=== PATIENT | female | born 1940 | race Caucasian/White ===

== ENCOUNTER 2019-06-28 11:49 | Emergency (ER) | payer MEDICARE, OTHER, SELFPAY ==
--- NOTE | ~2019-06-28 | XR_ITS ---
EXAMINATION: XR chest 2V DATE: 06/28/2019 12:37 INDICATION: Cough and fever. TECHNIQUE: Frontal and lateral views of the chest were obtained. COMPARISON: Chest 2 views 03/25/2015 FINDINGS: There are small pleural effusions. There are airspace opacities in right upper lobe. There is mild atelectasis at the lung bases. No pneumothorax. The heart size is normal. There are surgical clips in right abdomen. IMPRESSION: 1. Airspace opacities in right upper lobe, consistent with pneumonia. 2. Small pleural effusions. Reviewed, dictated and finalized at location A. REPAIRER
[2019-06-28 12:05] VITALS: BP 141/70; PULSE 68; RESP 24; TEMP 39.3; O2SAT 97
--- NOTE | 2019-06-28 12:17 | ED.GENADULT ---
HPI - General Adult General Chief complaint: Upper Respiratory Infection Stated complaint: upper back pn/fever Time Seen by Provider: 06/28/19 12:17 Source: patient and RN notes reviewed Mode of arrival: ambulatory Limitations: no limitations History of Present Illness HPI narrative: 79-year-old female with complaints of upper respiratory infection symptoms, body aches, congestion, fever, cough, intermittent headache (not the worst: of her life) for 4 days. Arthritis Tylenol (650mg last this morning at 11:30) and Coricidin HBP with some relief. Dry cough. Coughing increases with lying down. Chest congestion. High fever, highest 103F, orally with chills and sweats. Rosaura says she recently left [facility] for further evaluation here at [facility] due to no radiologist to read CXR per provider's at [facility] request. Rhinorrhea and nasal congestion. No exacerbating factors. No nausea, vomiting, and abdominal pain. Denies chest pain, dyspnea, wheezing, coughing up blood, difficulty swallowing, jaw pain, dental pain, facial pain, foreign body sensation, and rash. Postmenopausal. Remains active. Some parts of this dictation were generated by voice recognition software and may contain typographical and/or grammatical inaccuracies. Related Data Home Medications Medication Instructions Recorded Confirmed amlodipine 10 mg DAILY 06/28/19 06/28/19 celecoxib 200 mg DAILY 06/28/19 06/28/19 folic acid 1 mg DAILY 06/28/19 06/28/19 indomethacin 25 mg DAILY 06/28/19 06/28/19 omeprazole 20 mg DAILY 06/28/19 06/28/19 simvastatin 20 mg DAILY 06/28/19 06/28/19 Allergies Allergy/AdvReac Type Severity Reaction Status Date / Time nitrofurantoin Allergy Severe GENERALIZED Unverified 11/25/16 06:31 ENTIRE BODY TINGLING, PAIN Penicillins Allergy Unknown Verified 08/18/17 15:24 Review of Systems Review of Systems: Narrative: CONSTITUTIONAL: Complains of fever, chills, sweats. EYES: Denies visual changes, redness, discharge. ENT: Complains of rhinorrhea, congestion. Denies sore throat, otalgia. CARDIOVASCULAR: Denies chest pain, palpitations, edema. RESPIRATORY: Denies dyspnea, wheezing. Complains of dry cough, chest congestion. GASTROINTESTINAL: Denies abdominal pain, nausea, vomiting, diarrhea. GENITOURINARY: Denies dysuria, hematuria, abnormal discharge SKIN: Denies rash or itching. MUSCULOSKELETAL: Denies acute back pain, joint pain. Complains of myalgia. NEUROLOGIC: Denies numbness or focal weakness. PSYCHIATRIC: Denies anxiety or depression. All systems reviewed & are unremarkable except as noted in HPI and below. [facility] Past Medical History Medical History (Updated 06/29/19 @ 00:02 by Hawa Freeman) Arthritis Cardiac arrhythmia History of gastroesophageal reflux (GERD) Hypercholesteremia Hypertension Obstructive sleep apnea Pneumonia Family History Family History Father Family history of respiratory disorder, Onset Age: 63 Sibling Diabetes mellitus Other Family history of malignant neoplasm of breast Family history of malignant neoplasm of cervix Social History Social History Smoking status: Never smoker Alcohol intake: never Gender identity (if verbalized by the patient): Female Comments At time of signature, agree with nurse past medical, surgical, social, and family history. There is no relevant family history pertinent to the presenting complaint. Exam Narrative: Exam Narrative: GENERAL: This is a well-nourished, well-developed patient, in no apparent distress. Speaks in full sentences and ambulates with steady gait without dyspnea. HEAD: normocephalic, atraumatic. EYES: PERRL. Sclera clear/white. Vision is grossly intact. EARS: External ears normal, auditory canals clear and without drainage, TMs normal without perforation. Hearing grossl
[2019-06-28 13:27] VITALS: BP 113/68; PULSE 85; RESP 20; TEMP 37.7; O2SAT 98
== END 2019-06-28 13:29 | disposition home or self-care (01) ==
PROVIDERS: Emergency Provider Nurse Practitioner Family
DX: J18.9 Pneumonia, unspecified organism (principal); M19.90 Unspecified osteoarthritis, unspecified site; K21.9 Gastro-esophageal reflux disease without esophagitis; E78.00 Pure hypercholesterolemia, unspecified; I10 Essential (primary) hypertension; G47.30 Sleep apnea, unspecified
CPT/HCPCS: 71046; 87804; 99213; A9270; G0463

== ENCOUNTER 2021-02-19 01:40 | Day surgery (SDC) | payer MEDICARE, OTHER, SELFPAY ==
[2021-02-06 10:08] VITALS: BMI 29.1
--- NOTE | 2021-02-19 07:01 | WPDHPUPDATE1 ---
History and Physical Update Update Date/Time: 02/19/21 07:01 History and Physical has been reviewed, including an updated exam of the patient. There are NO changes in the patient's condition. Risks, benefits, and alternatives have been discussed and questions answered. Patient agrees to proceed with procedure.
--- NOTE | 2021-02-19 09:39 | WPDANESEPPF ---
Anes - Initial Pre Proc Eval Procedure: Operation Date: 02/19/21 11:00 Proposed Procedures p Repair Left Middle and Ring Sagittal Bands with Local or Remote Tendon Grafts and Inject Left Middle Trigger Finger - Shyam Yen MD Date/Time: 02/19/21 09:39 Surgeon: Shyam Yen MD Pre Op Diagnosis: Left Ring Finger Sagittal Band Rupture Patient Data Age: 80 Gender: F Height: 1.63 m Weight: 77 kg Allergies Allergy/AdvReac Type Severity Reaction Status Date / Time nitrofurantoin Allergy Severe GENERALIZED Verified 02/06/21 09:59 ENTIRE BODY TINGLING, PAIN,UNABLE TO WALK Penicillins Allergy Unknown rash Verified 02/06/21 09:59 Home Medications Medication Instructions Recorded Confirmed Type amlodipine 10 mg PO QPM 06/28/19 02/06/21 History celecoxib 200 mg PO QAM 06/28/19 02/06/21 History folic acid 1 mg PO DAILY 06/28/19 02/06/21 History indomethacin 25 mg PO DAILY PRN 06/28/19 02/06/21 History omeprazole 20 mg PO DAILY 06/28/19 02/06/21 History simvastatin 10 mg PO DAILY 06/28/19 02/06/21 History prednisolone acetate 1 % eye 1 drp EACH EYE EVERY OTHER DAY 12/25/20 02/06/21 History drops,suspension multivitamin [Multiple Vitamin] 1 tablet PO DAILY 02/06/21 02/06/21 History potassium 99 mg PO DAILY 02/06/21 02/06/21 History vitamin B complex [B 1 tablet PO DAILY 02/06/21 02/06/21 History Complex-Vitamin B12] Patient hx anesthesia problems: none Family hx anesthesia problems: none PMFSH Past Medical History Medical History Arthritis Cardiac arrhythmia History of gastroesophageal reflux (GERD) Hypercholesteremia Hypertension Obstructive sleep apnea Pneumonia Surgical History Surgical History H/O hemorrhoidectomy History of cornea transplant History of left knee replacement Family History Family History Father Family history of respiratory disorder, Onset Age: 63 Sibling Diabetes mellitus Other Family history of malignant neoplasm of breast Family history of malignant neoplasm of cervix Social History Social History Smoking status: Never smoker Alcohol intake: never Substance use: never Living arrangements: with family Additional living arrangements comments: [facility] Gender identity (if verbalized by the patient): Female Spiritual care concerns: No Anes - Eval Final PreProcedure Day of Procedure 02/19/21 09:39 Patient weight: overweight Heart: regular rate and rhythm and murmur Lungs: clear to auscultation Airway: Mallampati scale class III Neurological: alert and oriented Last oral intake: >/= 8 hours ASA classification: III Emergent: no Anesthetic plan: proceed Anesthesia type and monitoring: general GIVS and standard monitoring Informed Consent: The patient's anesthetic plan and its attendant risks and benefits were discussed with the patient/family/POA. Questions were solicited and answers provided to the satisfaction of the patient/family/POA.
[2021-02-19 09:56] VITALS: BP 131/62; PULSE 67; RESP 14; TEMP 37.3; O2SAT 100; BMI 29.3
[2021-02-19] MEDS: LACTATED RINGERS 1,000 ML 30 ML IV CONT ×2 (10:03→11:47)
[2021-02-19] MEDS: LIDO 1%/EPINEPHRINE 1:100,000 50 ML VIAL 7 ML INFILTRATE (10:27)
[2021-02-19 11:47] VITALS: BP 127/62; PULSE 77; RESP 12; TEMP 36.1; O2SAT 91
[2021-02-19 12:15] VITALS: BP 127/62; PULSE 76; RESP 16
--- NOTE | 2021-02-19 12:27 | W.PM.PROC2 ---
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 The patient was transferred to the operating room. She was placed supine on the operating table. A time-out was held and confirmed. She was given IV sedation. The extremity was prepped and draped in usual fashion. The tourniquet was applied and eventually inflated to 250 mmHg. The incision lines were marked on the hand dorsally. The sites were infiltrated 1% lidocaine with epinephrine. The incision was made over the 4th ray centered on the metacarpophalangeal joint. Skin flaps were elevated to both sides. The disrupted sagittal band was noted on the radial side. Some scar tissue was trimmed out. The ulnar collateral ligament at the head of the 4th metacarpal was dissected and small hemostat was passed beneath that. A distally-based segment of the extensor tendon was elevated. This was looped under the extensor tendons to pass distal to proximal through the opening under the collateral ligament. The segment of tendon was sutured back to itself with 3-0 Ethibond finger of 8 stitches at 2 sites. This was done with the metacarpophalangeal joint in extension. This allowed free passive range of motion of the metacarpophalangeal joint. The extensor sanchez on the ulnar side was incised at the area of the metacarpophalangeal joint to improve the position of the tendon. The 2nd incision was made over the middle metacarpophalangeal joint. A similar procedure was carried out harvesting of a distally based tendon segment from the extensor tendon. The ulnar collateral ligament was dissected. The [id number] 3-0 Ethibond sutures were placed. This allowed free passive flexion of the middle finger. Again the extensor sanchez on the ulnar side was incised at the level of the metacarpophalangeal joint. The tourniquet was released. Bleeding points were electrocoagulated. The site was irrigated. At that point I elected not to inject the A1 wilma on the palmar side but hold that for a later date. The skin was closed with running 5 0 nylon. A small bulky bandage was applied with a ortho glass splint holding the proximal phalanges of the middle and ring fingers in extension but allowing passive motion and freedom of range to the other 3 digits. She is discharged to the recovery room. She will be discharged with prescription for hydrocodone 5/325 10. And cephalexin 500 mg t.i.d. 15. Estimated Blood Loss 5 Tourniquet Time 43 Drains No Packing No Pathology none sent Complications No immediate complications Condition stable Disposition PACU
[2021-02-19 12:45] VITALS: BP 133/70; PULSE 80; RESP 16
== END 2021-02-19 13:02 | disposition home or self-care (01) ==
PROVIDERS: Visit Provider Plastic Surgery
PROC: (CPT 26437; principal; 2021-02-19 11:00)
DX: S66.313A Strain of extensor muscle, fascia and tendon of left middle finger at wrist and hand level, initial encounter (principal); S66.315A Strain of extensor muscle, fascia and tendon of left ring finger at wrist and hand level, initial encounter; X58.XXXA Exposure to other specified factors, initial encounter; I10 Essential (primary) hypertension; E78.00 Pure hypercholesterolemia, unspecified; K21.9 Gastro-esophageal reflux disease without esophagitis; G47.33 Obstructive sleep apnea (adult) (pediatric)
CPT/HCPCS: 26437 ×2; A9270; J2704; J3010; J7120

== ENCOUNTER 2021-10-16 09:04 | Outpatient (CLI) | payer MEDICARE, OTHER, SELFPAY ==
--- NOTE | ~2021-10-16 | MM_ITS ---
EXAMINATION: MM screening [facility] BI w skip HISTORY: Screening mammogram TECHNIQUE: Craniocaudal and mediolateral oblique 3-D tomosynthesis images were obtained and synthetic 2-D images were generated. CAD analysis was submitted and interpreted. COMPARISON: 11/10/2018, 10/25/2018, 10/21/2017 BREAST PARENCHYMAL COMPOSITION: The breasts are almost entirely fatty. FINDINGS: There is no suspicious mass, calcification, or architectural distortion to suggest malignan cy in either breast. There has been no suspicious interval change. IMPRESSION: 1. No mammographic evidence of malignancy. 2. Recommend routine screening mammography in one year. BI-RADS Category 1: Negative Reviewed, dictated and finalized at location A.
== END 2021-10-16 09:05 | disposition home or self-care (01) ==
PROVIDERS: Visit Provider Obstetrics & Gynecology
DX: Z12.31 Encounter for screening mammogram for malignant neoplasm of breast (principal)
CPT/HCPCS: 77063; 77067

== ENCOUNTER 2022-01-19 08:30 | Outpatient (CLI) | payer MEDICARE, OTHER, SELFPAY ==
--- NOTE | 2022-01-21 12:38 | P.PCNPFT_ITS ---
PFT Procedure Performed PFT Procedure Performed Spirometry with Pre/Post Bronchodilator Plethysmography (Lung Vol) Diffusing Cap (DLCO) Flow Vol Loop PFT Interpretation This is a pulmonary function test with pre and post-bronchodilator spirometry, plethysmography and diffusing capacity. The test was performed and results interpreted in accordance with the 2019 and 2005 ATS/ERS Task Force guidelines respectively using the Global Lung Function Initiative-2012 reference equations. Patient demonstrated good effort and cooperation. Reproducibility criteria were met. The quality of the pre bronchodilator spirometry maneuver was Grade A and post bronchodilator spirometry maneuver was Grade A. Findings: Spirometry: The contour the inspiratory and expiratory flow tracing are normal. The pre bronchodilator FVC is 2.61 L, 105% predicted. The pre bronchodilator FEV1 is 2.07 L, 111% predicted. The pre bronchodilator FEV1: FVC ratio 79%. The post bronchodilator FVC is 2.49 L, representing a 4% decrease. The post bronchodilator FEV1 is 1.97 L, representing a 5% decrease. The post bronchodilator FEV1: FVC ratio 79%. Plethysmography: The total lung capacity is 4.21 L, 83% predicted. The functional residual capacity is 2.64 L, 90% predicted. The residual volume is 1.60 L, 65% predicted. Diffusing capacity: The diffusing capacity unadjusted for hemoglobin and carboxyhemoglobin is 13.6, 72% predicted. The diffusing capacity adjusted for alveolar volume is 3.97, 97% predicted. In comparison to previous pulmonary function test on 05/20/2015 the post bronchodilator FVC is unchanged from 2.61 L to 2.49 L. The post bronchodilator FEV1 is unchanged from 2.11 L to 1.97 L. The total lung capacity is unchanged from 4.73 L to 4.21 L. The functional residual capacity is unchanged from 3.10 L to 2.64 L. The residual volume is decreased from 2.00 L to 1.60 L. the diffusing capacity unadjusted for hemoglobin and carboxyhemoglobin is unchanged from 12.7 to 13.6. The diffusing capacity adjusted for alveolar volume is unchanged from 4.35 to 3.97. Impression: The spirometry is normal without evidence of an obstructive abnormality. There is no significant improvement after inhaling a single dose of albuterol. The total lung capacity is normal with a decreased residual volum e. This is an abnormal but nonspecific lung volume pattern. The diffusing capacity is normal. In comparison to prior pulmonary function testing on 05/20/2015 there has been a greater than anticipated time dependent decrease in the residual volume with no change in the FVC, FEV1, total lung capacity, functional residual capacity or diffusing capacity. Clinical correlation is recommended.
--- NOTE | 2022-01-21 12:44 | WPDSIXMINUTE ---
Six Minute Walk Procedure Procedure Performed Pulmonary Stress Test (6 min walk) Six Minute Walk Six Minute Walk: This is a 6 minute walk test. The test was performed and interpreted in accordance with the 2014 ERS/ATS task force guidelines. Findings: The patient's resting room air oxygen saturation measured by pulse oximetry was 98% and heart rate was 82 bpm. Patient ambulated for 244 meters and oxygen saturation remained 98 to 100%. Heart rate at the end of the study was 120 bpm. The patient did not qualify for supplemental oxygen at rest or with ambulation. There are no prior studies for comparison.
== END 2022-01-19 08:31 | disposition home or self-care (01) ==
LOC: ANHPFT 08:32
PROVIDERS: Visit Provider Nurse Practitioner Family
DX: R06.00 Dyspnea, unspecified (principal)
CPT/HCPCS: 94060; 94618; 94726; 94729

== ENCOUNTER 2022-02-03 16:37 | Emergency (ER) | payer MEDICARE, OTHER, SELFPAY ==
--- NOTE | ~2022-02-03 | CT_ITS ---
EXAMINATION: CT abdomen pelvis w con DATE: 02/03/2022 20:11 INDICATION: Abdominal pain around the ileostomy. Nausea and vomiting. TECHNIQUE: Computed tomography (CT) of the abdomen and pelvis was performed with 100 mL Omnipaque 350 intravenous contrast. Automated exposure control and iterative reconstruction technique were employe d. The dose-length product was 617.57 mGy-cm. COMPARISON: None. FINDINGS: The visualized portions of the lung bases demonstrate mild atelectasis. Calcified pulmonary nodules and calcified hilar lymph nodes are consistent with old granulomatous disease. There is mild bronchiectasis bilaterally. No pleural effusion. The heart size is normal. There are coronary artery calcifications. There are calcifications of aortic valve. No pericardial effusion. Calcifications in the liver and spleen are consistent with old granulomatous disease. There are changes of cholecystec shawna. The pancreas and adrenal glands are normal. There is cortical thinning of the kidneys. There ar e cysts in the kidneys measuring up to 8 mm on the left. A Nataliia pouch is noted. There is an end i leostomy in right abdomen. There are no dilated loops of bowel. There are no pathologically enlarged lymph nodes. There is no free intraperitoneal fluid. There are old healed fractures of right superior and inferior pubic rami. There is severe osteoarthritis of the hips. There is thoracolumbar levoscol iosis. There are bridging endplate osteophytes at multiple levels in the spine, consistent with diffu se idiopathic skeletal hyperostosis (DISH). There is mild chronic anterior wedging of multiple verteb ral bodies. IMPRESSION: 1. No etiology for the patient's symptoms. Reviewed, dictated and finalized at location E.
[2022-02-03 17:02] VITALS: BP 138/83; PULSE 103; RESP 14; TEMP 36.9; O2SAT 98
[2022-02-03 17:15] LABS: Basophils Percent Auto 0.3 % (0.2-1.2); Eosinophils Absolute Auto 0.4 K/mm3 (0-0.3); Immature Granulocyte Absolute 0.03 K/mm3 (0.00-0.031); Immature Granulocyte Percent A 0.3 % (0-0.5); Lymphocytes Absolute Auto 1.36 K/mm3 (0.9-3.2); Lymphocytes Percent Auto 14.2 % (18.3-44.2); Mean Corpuscular HGB Conc 32.6 g/dl (32-36); Mean Corpuscular Hemoglobin 30.1 pg (26-34); Mean Corpuscular Volume 92.4 fl (80-100); Mean Platelet Volume 10.6 fl (7.4-10.4); Monocytes Absolute Auto 0.7 K/mm3 (0.1-0.6); Monocytes Percent Auto 7.3 % (2.6-8.5); Neutrophils Absolute Auto 7.1 K/mm3 (1.3-6.7); Neutrophils Percent Auto 73.9 % (45.5-73.1); Platelet Count Result 255 k/mm3 (150-375); Red Blood Count 4.98 M/mm3 (4.2-5.4); Red Cell Distribution Width 13.5 % (11.5-14.5); White Blood Count 9.6 K/mm3 (4.5-10.0)
[2022-02-03 17:25] LABS: Alanine Aminotransferase 20 U/L (6-35); Albumin Level 5.2 g/dL (3.5-5.1); Alkaline Phosphatase 77 U/L (38-126); Anion Gap 12 mmol/L (8-16); Aspartate Amino Transferase 29 U/L (14-36); Bilirubin,Total 1.4 mg/dL (0.2-1.3); Blood Urea Nitrogen 17 mg/dL (7-17); Calcium 10.6 mg/dL (8.4-10.2); Carbon Dioxide 23 mmol/L (22-30); Chloride 105 mmol/L (98-107); Estimated CRCL calculation 42 ml/min; Estimated Glomerular Filt Rate 60; Glucose 123 mg/dL (65-110); Lipase 99 U/L (23-300); Potassium 4.3 mmol/L (3.4-5.0); Sodium 140 mmol/L (137-145)
--- NOTE | 2022-02-03 18:49 | ED.NAVMDI ---
HPI - Nausea/Vomiting/Diarrhea General Chief complaint: Nausea/Vomiting/Diarrhea Stated complaint: liquid stools in ileostomy Time Seen by Provider: 02/03/22 18:22 Source: patient Mode of arrival: ambulatory Limitations: no limitations History of Present Illness HPI Narrative: Patient is 81 years old white female presents with mild abdominal discomfort around the ileostomy started few days ago. Patient vomited once 3 days ago, patient noticed a clot of clear brown fluid in the ileostomy bag than usual. She denied fever, chills or urinary symptoms. Related Data Home Medications Medication Instructions Recorded Confirmed amlodipine 10 mg tablet 10 mg PO QPM 06/28/19 12/26/21 celecoxib 200 mg capsule 200 mg PO QAM 06/28/19 12/26/21 folic acid 1 mg tablet 1 mg PO DAILY 06/28/19 12/26/21 indomethacin 25 mg capsule 25 mg PO DAILY PRN Pain 06/28/19 12/26/21 simvastatin 20 mg tablet 10 mg PO DAILY 06/28/19 12/26/21 prednisolone acetate 1 % eye 1 drp EACH EYE EVERY OTHER DAY 12/25/20 12/26/21 drops,suspension (Pred Forte) multivitamin 1 tablet PO DAILY 02/06/21 12/26/21 potassium 99 mg tablet 99 mg PO DAILY 02/06/21 12/26/21 vitamin B complex (B 1 tablet PO DAILY 02/06/21 12/26/21 Complex-Vitamin B12 tablet) calcium carbonate 600 mg calcium 600 mg PO BID 12/26/21 12/26/21 (1,500 mg) tablet (Calcium) Allergies Allergy/AdvReac Type Severity Reaction Status Date / Time nitrofurantoin Allergy Severe GENERALIZED Verified 12/26/21 08:57 ENTIRE BODY TINGLING, PAIN,UNABLE TO WALK Penicillins Allergy Unknown rash Verified 12/26/21 08:57 Review of Systems Review of Systems: All systems reviewed & are unremarkable except as noted in HPI and below PMFSH Past Medical History Medical History Arthritis Cardiac arrhythmia History of gastroesophageal reflux (GERD) Hypercholesteremia Hypertension Obstructive sleep apnea Pneumonia Surgical History Surgical History H/O hemorrhoidectomy History of cornea transplant History of left knee replacement Family History Family History Father Family history of respiratory disorder, Onset Age: 63 Sibling Diabetes mellitus Other Family history of malignant neoplasm of breast Family history of malignant neoplasm of cervix Social History Social History Smoking status: Never smoker Alcohol intake: never Substance use: never Additional living arrangements comments: [facility] Gender identity (if verbalized by the patient): Female Spiritual care concerns: No Exam Narrative: General appearance: Well-developed, well-nourished Skin: Normal color Head: Normocephalic, nontraumatic Eyes: Clear conjunctiva ENT: Oropharynx normal, ears normal, nose normal Neck: Supple, nontender Chest and respiratory: Airway patent, no respiratory distress, no accessory muscle use Heart: Regular rate/rhythm Abdomen: Soft, slight tenderness around the ileostomy bag, the bag is filled with clear brown liquidy stool no organomegaly, quiet bowel sounds Vascular: Normal peripheral pulses, normal capillary refill. Musculoskeletal: Normal range of motion, nontender back Neurologic: Alert and oriented ?3, [employer] is normal as tested, no gross motor deficit Course Vital Signs Vital signs: Vital Signs Temperature 36.9 C 02/03/22 17:02 Pulse Rate 103 H 02/03/22 17:02 Respiratory Rate 14 02/03/22 17:02 Blood Pressure 138/83 02/03/22 17:02 Pulse Oximetry 98 02/03/22
[2022-02-03 18:54] LABS: Appearance Urine Clear (Clear); Bilirubin Urine Negative (Negative); Blood Urine Negative (Negative); Glucose Urine UA Negative (Negative); Ketones Urine Trace mg/dL (Negative); Leukocyte Esterase Ur Trace LEU/UL (Negative); Nitrate Urine Negative (Negative); Protein Urine 1+ mg/dL (Negative); Specific Grav Ur 1.025 (1.001-1.035); Urobilinogen Urine 0.2 mg/dL (<2.0)
[2022-02-03 19:16] VITALS: BP 127/73; O2SAT 96
[2022-02-03 19:22] LABS: Add Urine Microscopic? YES; Color Urine Dark Yellow (Yellow)
[2022-02-03 19:23] LABS: RBC Urine 0-2 /hpf (0-2); Squamous Epithelial Cell Urine Few /hpf (Few)
[2022-02-03 19:24] LABS: Bacteria Urine Trace /hpf
[2022-02-03 19:25] LABS: Calcium Oxalate Crystals Urine Many /hpf
[2022-02-03 19:27] LABS: Mucus Urine Few /lpf
[2022-02-03] MEDS: SODIUM CHLORIDE 0.9% IV 1,000 ML 999 ML IV CONT (19:54)
[2022-02-03 21:00] VITALS: O2SAT 95
[2022-02-03 21:15] VITALS: BP 129/69; O2SAT 95
== END 2022-02-03 21:27 | disposition home or self-care (01) ==
PROVIDERS: Emergency Medicine; Emergency Provider Emergency Medicine
DX: R10.9 Unspecified abdominal pain (principal); E78.00 Pure hypercholesterolemia, unspecified; I10 Essential (primary) hypertension; G47.33 Obstructive sleep apnea (adult) (pediatric); M19.90 Unspecified osteoarthritis, unspecified site; K21.9 Gastro-esophageal reflux disease without esophagitis; Z93.2 Ileostomy status; Z96.652 Presence of left artificial knee joint; Z87.01 Personal history of pneumonia (recurrent); Z94.7 Corneal transplant status
CPT/HCPCS: 36415; 74177; 80053; 81001; 83690; 85025; 87086; 87088; 96360; 99284; J7030; Q9967

== ENCOUNTER 2022-02-04 14:49 | Emergency (ER) | payer MEDICARE, OTHER, SELFPAY ==
[2022-02-04 14:52] VITALS: BP 126/77; PULSE 107; RESP 14; TEMP 36.9; O2SAT 98
[2022-02-04 15:10] LABS: Basophils Absolute Auto 0.1 K/mm3 (0.0-0.1); Basophils Percent Auto 0.3 % (0.2-1.2); Eosinophils Percent Auto 0.3 % (0-4.4); Hematocrit 49.2 % (37.0-47.0); Hemoglobin 16.1 g/dL (12.0-15.0); Immature Granulocyte Absolute 0.05 K/mm3 (0.00-0.031); Immature Granulocyte Percent A 0.3 % (0-0.5); Lymphocytes Absolute Auto 0.92 K/mm3 (0.9-3.2); Mean Corpuscular HGB Conc 32.7 g/dl (32-36); Mean Corpuscular Hemoglobin 30.1 pg (26-34); Mean Corpuscular Volume 92.1 fl (80-100); Mean Platelet Volume 10.7 fl (7.4-10.4); Monocytes Absolute Auto 0.6 K/mm3 (0.1-0.6); Monocytes Percent Auto 3.8 % (2.6-8.5); Neutrophils Absolute Auto 13.7 K/mm3 (1.3-6.7); Neutrophils Percent Auto 89.3 % (45.5-73.1); Platelet Count Result 321 k/mm3 (150-375); Red Blood Count 5.34 M/mm3 (4.2-5.4); Red Cell Distribution Width 13.5 % (11.5-14.5); White Blood Count 15.3 K/mm3 (4.5-10.0)
[2022-02-04 15:20] LABS: Alanine Aminotransferase 21 U/L (6-35); Albumin Level 5.3 g/dL (3.5-5.1); Alkaline Phosphatase 82 U/L (38-126); Anion Gap 22 mmol/L (8-16); Aspartate Amino Transferase 28 U/L (14-36); Bilirubin,Total 1.6 mg/dL (0.2-1.3); Blood Urea Nitrogen 18 mg/dL (7-17); Calcium 10.1 mg/dL (8.4-10.2); Carbon Dioxide 16 mmol/L (22-30); Chloride 103 mmol/L (98-107); Estimated CRCL calculation 38 ml/min; Estimated Glomerular Filt Rate 53; Glucose 166 mg/dL (65-110); Lipase 119 U/L (23-300); Potassium 4.3 mmol/L (3.4-5.0); Sodium 141 mmol/L (137-145)
--- NOTE | 2022-02-04 19:35 | ED.ABDPAIN ---
HPI - Abdominal Pain General Chief Complaint: Abdominal Pain Stated Complaint: illeostomy, clear yellow stools Time Seen by Provider: 02/04/22 18:58 History of Present Illness HPI narrative: This is an 81-year-old female past medical history of ulcerative colitis status post ileostomy, returning to the emergency department complaining of nausea vomiting and increased frequency of ileostomy output. She states she was evaluated here yesterday for the same, went home and had persistent nausea and vomiting. She also complains of some palpitations but denies chest pain, loss of consciousness or shortness of breath. Related Data Home Medications Medication Instructions Recorded Confirmed amlodipine 10 mg tablet 10 mg PO QPM 06/28/19 12/26/21 celecoxib 200 mg capsule 200 mg PO QAM 06/28/19 12/26/21 folic acid 1 mg tablet 1 mg PO DAILY 06/28/19 12/26/21 indomethacin 25 mg capsule 25 mg PO DAILY PRN Pain 06/28/19 12/26/21 simvastatin 20 mg tablet 10 mg PO DAILY 06/28/19 12/26/21 prednisolone acetate 1 % eye 1 drp EACH EYE EVERY OTHER DAY 12/25/20 12/26/21 drops,suspension (Pred Forte) multivitamin 1 tablet PO DAILY 02/06/21 12/26/21 potassium 99 mg tablet 99 mg PO DAILY 02/06/21 12/26/21 vitamin B complex (B 1 tablet PO DAILY 02/06/21 12/26/21 Complex-Vitamin B12 tablet) calcium carbonate 600 mg calcium 600 mg PO BID 12/26/21 12/26/21 (1,500 mg) tablet (Calcium) Allergies Allergy/AdvReac Type Severity Reaction Status Date / Time nitrofurantoin Allergy Severe GENERALIZED Verified 12/26/21 08:57 ENTIRE BODY TINGLING, PAIN,UNABLE TO WALK Penicillins Allergy Unknown rash Verified 12/26/21 08:57 Review of Systems Review of Systems: CONSTITUTIONAL: Denies fever, chills, or sweats. EYES: Denies visual changes, redness, or discharge. ENT: Denies rhinorrhea, congestion, sore throat, or otalgia. CARDIOVASCULAR: Denies chest pain, palpitations, or edema. RESPIRATORY: Denies cough or dyspnea. GASTROINTESTINAL: Diarrhea, nausea, vomiting, loose stools GENITOURINARY: Denies dysuria or hematuria. SKIN: Denies rash or itching. MUSCULOSKELETAL: Denies back pain, joint pain, or myalgia. NEUROLOGIC: Denies headache, numbness, dizziness, or weakness. PSYCHIATRIC: Denies anxiety or depression. [facility] Past Medical History Medical History Arthritis Cardiac arrhythmia History of gastroesophageal reflux (GERD) Hypercholesteremia Hypertension Obstructive sleep apnea Pneumonia Surgical History Surgical History H/O hemorrhoidectomy History of cornea transplant History of left knee replacement Family History Family History Father Family history of respiratory disorder, Onset Age: 63 Sibling Diabetes mellitus Other Family history of malignant neoplasm of breast Family history of malignant neoplasm of cervix Social History Social History Smoking status: Never smoker Alcohol intake: never Substance use: never Additional living arrangements comments: [facility] Gender identity (if verbalized by the patient): Female Spiritual care concerns: No Exam Narrative: GENERAL: Well-developed, well-nourished, appears uncomfortable. HEAD: Normocephalic, atraumatic. EYES: PERRLA and EOMI. ENT: Nares clear, no rhinorrhea or epistaxis. Mucous membranes dry. Oropharynx without tonsillar hypertrophy exudate or other lesions. NECK: Supple. No adenopathy or masses. No carotid bruits or JVD CHEST: Clear to auscultation. No respiratory distress. No wheezes rales or rhonchi HEART: Tachycardic with regular rhythm. No murmur heard. Normal peripheral pulses. ABDOMEN: Soft, mild epigastric tenderness without rebound, and ileostomy is noted in the right lower quadrant that appears pink and healthy, thi
[2022-02-04] MEDS: ONDANSETRON HCL ODT 4 MG TABLET PO (19:49)
[2022-02-04 19:55] VITALS: BP 133/67; PULSE 92; RESP 16; TEMP 37
[2022-02-04] MEDS: ACETAMINOPHEN 500 MG TABLET 1000 MG PO (19:55)
[2022-02-04] MEDS: SODIUM CHLORIDE 0.9% IV 1,000 ML 999 ML IV CONT (20:11)
[2022-02-04 20:20] VITALS: BP 127/71; PULSE 79; O2SAT 100
[2022-02-04 20:22] LABS: Influenza A QL RT-PCR Negative (Negative); Influenza B QL RT-PCR Negative (Negative); SARS-CoV-2 RNA PCR Negative
[2022-02-04 21:08] VITALS: BP 127/72; RESP 18; O2SAT 96
--- NOTE | 2022-02-04 21:19 | PC.NURSE ---
Reports sipping water at bedside and no problems. Notified Dr Romo.
[2022-02-04 22:19] VITALS: BP 126/64; PULSE 85; RESP 18; O2SAT 98
== END 2022-02-04 22:16 | disposition home or self-care (01) ==
PROVIDERS: Emergency Medicine; Emergency Provider Preventive Medicine Aerospace Medicine
DX: K52.9 Noninfective gastroenteritis and colitis, unspecified (principal); R00.0 Tachycardia, unspecified; Z20.822 Contact with and (suspected) exposure to COVID-19; K51.90 Ulcerative colitis, unspecified, without complications; E78.00 Pure hypercholesterolemia, unspecified; M19.90 Unspecified osteoarthritis, unspecified site; K21.9 Gastro-esophageal reflux disease without esophagitis; G47.33 Obstructive sleep apnea (adult) (pediatric); Z93.2 Ileostomy status; Z94.7 Corneal transplant status; Z96.652 Presence of left artificial knee joint; Z87.01 Personal history of pneumonia (recurrent)
CPT/HCPCS: 36415; 80053; 83690; 85025; 87502; 96360; 96361; 99283; A9270; C9803; J7030; U0003; U0005

== ENCOUNTER 2022-02-06 08:11 | Inpatient (IN) | payer MEDICARE, OTHER, SELFPAY ==
--- NOTE | ~2022-02-06 | CT_ITS ---
EXAMINATION: CT abdomen pelvis wo con DATE: 02/06/2022 13:29 INDICATION: Abdominal pain, nausea TECHNIQUE: Computed tomography (CT) of the abdomen and pelvis was performed without intravenous contr ast. The dose-length product (DLP) was 438.03 mGy-cm. Automated exposure control and iterative recons truction technique were employed. COMPARISON: 02/03/2022 FINDINGS: Minimal dependent atelectasis is present in the lung bases. The heart size is normal. Punct ate calcifications in otherwise normal appearing liver and spleen likely represent healed granulomato us disease. The gallbladder is surgically absent. The pancreas and adrenal glands are normal. Cysts o f the kidneys measure up to 8 mm on the left. No pathologically enlarged abdominal or pelvic lymph no lilliana are identified. There is an end ileostomy in the right abdomen. A Nataliia pouch is noted. There is no free intraperitoneal gas or evidence of bowel obstruction. There are fat-containing inguinal he rnias. There are old healed fractures of the right inferior and superior pubic rami. 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 There are bridging osteophytes at multiple levels in the spine, consist ent with diffuse idiopathic skeletal hyperostosis (DISH). IMPRESSION: 1. No CT correlate for the patient's symptoms. Reviewed, dictated and finalized at location B.
[2022-02-06 08:16] VITALS: BP 132/77; PULSE 106; RESP 16; TEMP 36.2; O2SAT 99
--- NOTE | 2022-02-06 08:22 | ED.GENADULT ---
HPI - General Adult General Chief complaint: Nausea/Vomiting/Diarrhea Stated complaint: n/v/d Time Seen by Provider: 02/06/22 08:13 History of Present Illness HPI narrative: 81-year-old female presenting to the emergency department for evaluation of nausea and vomiting. Patient states since Wednesday she has had intermittent nausea and vomiting. Patient states yesterday during the day she was taking Zofran was able to tolerate p.o. Patient states last night she began having multiple episodes of nausea and vomiting again. Patient states that today she has been unable to keep anything down. Patient does have some abdominal and leg cramping with this but denies any abdominal pain. Related Data Home Medications Medication Instructions Recorded Confirmed amlodipine 10 mg tablet 10 mg PO QPM 06/28/19 02/06/22 celecoxib 200 mg capsule 200 mg PO QAM 06/28/19 02/06/22 folic acid 1 mg tablet 1 mg PO DAILY 06/28/19 02/06/22 simvastatin 20 mg tablet 10 mg PO DAILY 06/28/19 02/06/22 prednisolone acetate 1 % eye See Rx Instructions .Route .COMPLEX 12/25/20 02/06/22 drops,suspension (Pred Forte) multivitamin 1 tablet PO DAILY 02/06/21 02/06/22 potassium 99 mg tablet 99 mg PO DAILY 02/06/21 02/06/22 vitamin B complex (B 1 tablet PO DAILY 02/06/21 02/06/22 Complex-Vitamin B12 tablet) calcium carbonate 600 mg calcium 600 mg PO BID 12/26/21 02/06/22 (1,500 mg) tablet (Calcium) Allergies Allergy/AdvReac Type Severity Reaction Status Date / Time nitrofurantoin Allergy Severe GENERALIZED Verified 02/06/22 10:58 ENTIRE BODY TINGLING, PAIN,UNABLE TO WALK Penicillins Allergy Unknown rash Verified 02/06/22 10:58 Review of Systems Review of Systems: CONSTITUTIONAL: Denies fever, chills, or sweats. EYES: Denies visual changes, redness, or discharge. ENT: Denies rhinorrhea, congestion, sore throat, or otalgia. CARDIOVASCULAR: Denies chest pain, palpitations, or edema. RESPIRATORY: Denies cough or dyspnea. GASTROINTESTINAL: See HPI GENITOURINARY: Denies dysuria or hematuria. SKIN: Denies rash or itching. MUSCULOSKELETAL: Denies back pain, joint pain, or myalgia. NEUROLOGIC: Denies headache, numbness, or weakness. [facility] Past Medical History Medical History (Updated 02/06/22 @ 14:55 by Clementina Ye APRN) Aortic stenosis Arthritis pseudogout History of gastroesophageal reflux (GERD) Hypercholesteremia Hypertension Obesity 02/06/22 BMI 29 Obstructive sleep apnea compliant with cpap Pulmonary hypertension Ulcerative colitis s/p ileostomy Surgical History Surgical History (Updated 02/06/22 @ 14:54 by Clementina Ye APRN) H/O hemorrhoidectomy H/O ileostomy History of cholecystectomy History of cornea transplant History of left knee replacement Family History Family History Father Family history of respiratory disorder, Onset Age: 63 Sibling Diabetes mellitus Other Family history of malignant neoplasm of breast Family history of malignant neoplasm of cervix Social History Social History (Updated 02/06/22 @ 14:50 by Clementina Ye APRN) Smoking status: Never smoker Alcohol intake: never Substance use: never Living arrangements: with family Additional living arrangements comments: lives with spouse Gender identity (if verbalized by the patient): Female Spiritual care concerns: No Exam Narrative: APPEARANCE: Well appearing, no pain, no distress, well-nourished. HEAD: normocephalic, atraumatic. EYES: PERRLA/EOMI, conjunctivae clear. NOSE: Normal no drainage EARS:TMS clear with good light reflex. RESPIRATORY: Airway patent, respirations nonlabored. Clear to auscultation bilaterally, no rales, rhonchi, wheezing. CARDIOVASCULAR: Regular rate and rhythm without murmurs rubs or gallops. ABDOMINAL: Soft, nontender, nondistended, normal bowel sounds MUSCULOSKELETAL: Moves all extremities. Stren
[2022-02-06 09:13] LABS: Basophils Percent Auto 0.3 % (0.2-1.2); Eosinophils Percent Auto 0.1 % (0-4.4); Immature Granulocyte Absolute 0.03 K/mm3 (0.00-0.031); Immature Granulocyte Percent A 0.3 % (0-0.5); Lymphocytes Absolute Auto 1.54 K/mm3 (0.9-3.2); Lymphocytes Percent Auto 14.1 % (18.3-44.2); Mean Corpuscular Hemoglobin 30.1 pg (26-34); Mean Corpuscular Volume 88.7 fl (80-100); Mean Platelet Volume 10.6 fl (7.4-10.4); Monocytes Absolute Auto 1.4 K/mm3 (0.1-0.6); Monocytes Percent Auto 13.1 % (2.6-8.5); Neutrophils Absolute Auto 7.9 K/mm3 (1.3-6.7); Neutrophils Percent Auto 72.1 % (45.5-73.1); Platelet Count Result 416 k/mm3 (150-375); Red Blood Count 5.64 M/mm3 (4.2-5.4); Red Cell Distribution Width 13.2 % (11.5-14.5)
[2022-02-06] MEDS: ONDANSETRON INJ 4 MG/2 ML VIAL IV PUSH (09:18)
[2022-02-06] MEDS: SODIUM CHLORIDE 0.9% IV 1,000 ML 500 ML IV CONT (09:18)
[2022-02-06 09:31] LABS: Alanine Aminotransferase 22 U/L (6-35); Albumin Level 5.6 g/dL (3.5-5.1); Alkaline Phosphatase 85 U/L (38-126); Anion Gap 26 mmol/L (8-16); Aspartate Amino Transferase 24 U/L (14-36); Bilirubin,Total 1.5 mg/dL (0.2-1.3); Blood Urea Nitrogen 49 mg/dL (7-17); Calcium 10.1 mg/dL (8.4-10.2); Carbon Dioxide 10 mmol/L (22-30); Chloride 101 mmol/L (98-107); Estimated CRCL calculation 11 ml/min; Estimated Glomerular Filt Rate 12; Glucose 207 mg/dL (65-110); Lipase 183 U/L (23-300); Potassium 4.2 mmol/L (3.4-5.0); Sodium 137 mmol/L (137-145)
[2022-02-06 09:32] LABS: Lactic Acid Reflex 2.1 mmol/L (0.7-2.0)
[2022-02-06 09:57] LABS: Appearance Urine Clear (Clear); Bilirubin Urine 2+ (Negative); Blood Urine Negative (Negative); Glucose Urine UA Negative (Negative); Ketones Urine Negative (Negative); Leukocyte Esterase Ur Negative LEU/UL (Negative); Nitrate Urine Negative (Negative); Protein Urine 2+ mg/dL (Negative); Specific Grav Ur >= 1.030 (1.001-1.035); Urobilinogen Urine 0.2 mg/dL (<2.0); pH Urine 5.5 (5.0-9.0)
[2022-02-06 10:01] VITALS: BP 135/69; PULSE 101; RESP 20; O2SAT 97
[2022-02-06 10:09] LABS: Mucus Urine Rare /lpf; Squamous Epithelial Cell Urine Rare /hpf (Few); WBC Urine 0-3 /hpf
[2022-02-06 10:11] LABS: Add Urine Microscopic? YES; Color Urine Dark Yellow (Yellow)
[2022-02-06] MEDS: METOCLOPRAMIDE HCL INJ 10 MG/2 ML VIAL IV PUSH (10:24)
--- NOTE | 2022-02-06 10:53 | ADMGEN ---
This patient, Rosaura Reyes, was admitted to Medical Room 246-. Patient/family oriented to hospital policies and general routines including ID bracelet, bed and alarms, visiting hours, pain management, procedures, bathroom and other care routines, personal items, smoking policy, room service/diet, and visiting hours. Information on how to activate the Rapid Response Team has been discussed. Patient/Family are encouraged to report perceived risks to care and to ask questions if they do not understand what they are told or what they should do.
[2022-02-06] MEDS: SODIUM CHLORIDE 0.9% IV 1,000 ML 100 ML IV CONT (11:04)
[2022-02-06 11:14] VITALS: BP 134/69; PULSE 100; RESP 18; TEMP 36.1; O2SAT 96
--- NOTE | 2022-02-06 11:57 | PM.IMHP ---
H&P: HPI History of Present Illness Date/Time: 02/06/22 11:57 Chief Complaint: nausea and vomiting Narrative: Rosaura Reyes is an 81 yo female with medical comorbidities of hypertension, obesity, GERD, and DULCE on CPAP. She has a history of ulcerative colitis with ileostomy creation in 2007. She presented to the ED for evaluation of intractable nausea and vomiting. The patient was seen in our ED on 02/03/22 and 02/04/22 for increased ileostomy output, nausea and vomiting. She reports mild abdominal discomfort and increased ileostomy output since Wednesday afternoon. On 02/03/22, CT abd/pelvis was negative for acute findings. She was discharged with recommendations to increase oral water intake. On 02/04/22, she again presented to the ED with nausea and vomiting. She was discharged home with oral zofran PRN. The patient states since leaving the ED on 02/04/22, she felt better initially, but worsened in the last 48 hours. Zofran has not been helping. She has been unable to keep food down. Her emesis is non-bloody and ileostomy is liquid and greenish-brown. She denies fever, but does endorse chills. No chest pain, SOB, palpitations, dysuria or flank pain. She denies changes in medications, diet or sick contacts. In the ED, her vitals were T97.2F, HR 106, RR 16, BP 132/77, spO2 99% on room air. Lab work was significant for WBC 11, H/H 17/50, platelets 416, BUN 49, creatinine 3.6, GFR 12, anion gap 26, glucose 207, Tbili 1.5, and normal lactic acid 1.2. She was treated with IV zofran and IV NS 1 liter. She was admitted to the medical floor for further management of ELA, increased anion gap metabolic acidosis, and intractable nausea and vomiting. Review of Systems Review of Systems: All systems reviewed & are unremarkable except as noted in HPI and below PMFSH Past Medical History Medical History (Updated 02/06/22 @ 14:55 by Clementina Ye, ALBERTO) Aortic stenosis Arthritis pseudogout History of gastroesophageal reflux (GERD) Hypercholesteremia Hypertension Obesity 02/06/22 BMI 29 Obstructive sleep apnea compliant with cpap Pulmonary hypertension Ulcerative colitis s/p ileostomy Surgical History Surgical History (Updated 02/06/22 @ 14:54 by Clementina Ye APRN) H/O hemorrhoidectomy H/O ileostomy History of cholecystectomy History of cornea transplant History of left knee replacement Family History Family History Father Family history of respiratory disorder, Onset Age: 63 Sibling Diabetes mellitus Other Family history of malignant neoplasm of breast Family history of malignant neoplasm of cervix Social History Social History (Updated 02/06/22 @ 14:50 by Clementina Ye APRN) Smoking status: Never smoker Alcohol intake: never Substance use: never Living arrangements: with family Additional living arrangements comments: lives with spouse Gender identity (if verbalized by the patient): Female Spiritual care concerns: No Meds Home Medications and Allergies Home Medications Medication Instructions Recorded Confirmed Type amlodipine 10 mg tablet 10 mg PO QPM 06/28/19 02/06/22 History celecoxib 200 mg capsule 200 mg PO QAM 06/28/19 02/06/22 History folic acid 1 mg tablet 1 mg PO DAILY 06/28/19 02/06/22 History simvastatin 20 mg tablet 10 mg PO DAILY 06/28/19 02/06/22 History prednisolone acetate 1 % eye See Rx Instructions .Route .COMPLEX 12/25/20 02/06/22 History drops,suspension (Pred Forte) multivitamin 1 tablet PO DAILY 02/06/21 02/06/22 History potassium 99 mg tablet 99 mg PO DAILY 02/06/21 02/06/22 History vitamin B complex (B 1 tablet PO DAILY 02/06/21 02/06/22 History Complex-Vitamin B12 tablet) hydrocodone 5 mg-acetaminophen 325 1 tablet PO Q6H PRN pain #10 tabs 02/19/21 02/06/22 Rx mg tablet calcium carbonate 600 mg calcium 600 mg PO BID 12/26/21 02/06/22 History (1,500 mg) tablet (Calcium) ondansetron 4 m
[2022-02-06 12:11] LABS: Reflex Lactic Acid Yes or No Add Lactic
[2022-02-06 13:02] LABS: Lactic Acid 1.5 mmol/L (0.7-2.0)
--- NOTE | 2022-02-06 13:16 | PC.NURSE ---
13:[address] by wheelchair. IV saline locked
[2022-02-06 13:51] LABS: Alveolar/Arterial O2 Gradient 21.7 mmHg; Base Excess ABG -11.3 mEq/l (+/-2.0); Fractional Inspired Oxygen 21 %; HCO3 ABG 13.5 mEq/l (22.0-26.0); Oxygen Content ABG 22.4 %vol (16.0-22.0); Oxygen Saturation ABG 96.5 % (95.0-100.0); Oxyhemoglobin 95.2 % THb (90.0-100.0); PCO2 ABG 28.8 mmHg (35.0-45.0); PO2 ABG 93.5 mmHg (80.0-100.0); PO2 FiO2 Ratio Arterial Blood 4.45 %; Total Hemoglobin 16.7 g/dL (12.0-18.0)
[2022-02-06 13:53] LABS: Device ROOM AIR; Modified Allen's Test Pass; Site Drawn LEFT RADIAL; pH ABG 7.289 (7.350-7.450)
--- NOTE | 2022-02-06 14:06 | PC.NURSE ---
13:35 patient returned to room from CT.
[2022-02-06 14:23] LABS: Alanine Aminotransferase 19 U/L (6-35); Albumin Level 5.3 g/dL (3.5-5.1); Alkaline Phosphatase 72 U/L (38-126); Anion Gap 26 mmol/L (8-16); Aspartate Amino Transferase 23 U/L (14-36); Bilirubin,Total 1.2 mg/dL (0.2-1.3); Blood Urea Nitrogen 50 mg/dL (7-17); Calcium 9.1 mg/dL (8.4-10.2); Carbon Dioxide 10 mmol/L (22-30); Chloride 101 mmol/L (98-107); Estimated CRCL calculation 11 ml/min; Estimated Glomerular Filt Rate 12; Glucose 168 mg/dL (65-110); Magnesium 2.1 mg/dL (1.6-2.3); Potassium 4.4 mmol/L (3.4-5.0); Sodium 137 mmol/L (137-145)
[2022-02-06 14:46] VITALS: BP 140/72; PULSE 104; RESP 16; TEMP 36.4; O2SAT 97
[2022-02-06] MEDS: SODIUM BICARBONATE 8.4% 150 MEQ in WATER, STERILE FOR INJECTION 950 ML 100 MEQ IV CONT (15:16)
--- NOTE | 2022-02-06 15:20 | PHAR ---
HOME MEDS VERIFIED BY PHARMACY: ESTEFANI 128 5% SOLUTION PREDNISOLONE OPHTHALMIC SUSPENSION 1%
[2022-02-06] MEDS: PROMETHAZINE HCL 25 MG/ML AMPUL 12.5 MG IV PUSH ×2 (15:28→22:41)
[2022-02-06 16:35] VITALS: O2SAT 97
[2022-02-06] MEDS: prednisoLONE ACETATE 1% OPHTH 5 ML 1 DROP EACH EYE ×2 (16:56→21:21)
[2022-02-06] MEDS: amLODIPine BESYLATE 5 MG TABLET 10 MG PO (18:37)
[2022-02-06 20:34] VITALS: BP 128/61; PULSE 106; RESP 20; TEMP 36.6; O2SAT 96
[2022-02-06] MEDS: HEPARIN SODIUM 5,000 UNITS/ML VIAL 5000 UNITS SUB-Q (21:21)
[2022-02-07 00:30] VITALS: BMI 27.0
[2022-02-07] MEDS: HEPARIN SODIUM 5,000 UNITS/ML VIAL 5000 UNITS SUB-Q ×3 (05:16→20:50)
[2022-02-07] MEDS: prednisoLONE ACETATE 1% OPHTH 5 ML 1 DROP EACH EYE (05:16)
[2022-02-07 05:51] LABS: Basophils Percent Auto 0.2 % (0.2-1.2); Eosinophils Percent Auto 0.3 % (0-4.4); Hematocrit 45.4 % (37.0-47.0); Hemoglobin 15.5 g/dL (12.0-15.0); Immature Granulocyte Absolute 0.04 K/mm3 (0.00-0.031); Immature Granulocyte Percent A 0.5 % (0-0.5); Lymphocytes Absolute Auto 1.43 K/mm3 (0.9-3.2); Lymphocytes Percent Auto 16.6 % (18.3-44.2); Mean Corpuscular HGB Conc 34.1 g/dl (32-36); Mean Corpuscular Hemoglobin 30.1 pg (26-34); Mean Corpuscular Volume 88.2 fl (80-100); Mean Platelet Volume 10.9 fl (7.4-10.4); Monocytes Absolute Auto 1.7 K/mm3 (0.1-0.6); Monocytes Percent Auto 19.8 % (2.6-8.5); Neutrophils Absolute Auto 5.4 K/mm3 (1.3-6.7); Neutrophils Percent Auto 62.6 % (45.5-73.1); Platelet Count Result 359 k/mm3 (150-375); Red Blood Count 5.15 M/mm3 (4.2-5.4); Red Cell Distribution Width 13.2 % (11.5-14.5); White Blood Count 8.6 K/mm3 (4.5-10.0)
[2022-02-07 05:58] LABS: Alanine Aminotransferase 22 U/L (6-35); Albumin Level 5.1 g/dL (3.5-5.1); Alkaline Phosphatase 69 U/L (38-126); Anion Gap 25 mmol/L (8-16); Aspartate Amino Transferase 25 U/L (14-36); Bilirubin,Total 1.3 mg/dL (0.2-1.3); Blood Urea Nitrogen 57 mg/dL (7-17); Calcium 8.6 mg/dL (8.4-10.2); Carbon Dioxide 17 mmol/L (22-30); Chloride 94 mmol/L (98-107); Estimated CRCL calculation 12 ml/min; Estimated Glomerular Filt Rate 13; Glucose 128 mg/dL (65-110); Potassium 3.7 mmol/L (3.4-5.0); Sodium 136 mmol/L (137-145)
[2022-02-07 06:00] VITALS: BP 135/73; PULSE 90; RESP 12; TEMP 36.4; O2SAT 96
--- NOTE | 2022-02-07 07:33 | P.PNIM_ITS ---
Progress Note: A&P Assessment and Plan (1) Intractable nausea and vomiting: Code(s): R11.2 - Nausea with vomiting, unspecified Status: Acute Assessment and Plan: Possibly secondary to gastroenteritis. 02/03/22 CT Abd/pelvis without acute findings. WBC 11. * Repeat CT scan w/o contrast 02/06 negative for acute disease. * PRN IV phenergan; * Advance diet to bland diet. (2) Metabolic acidosis, increased anion gap: Code(s): E87.2 - Acidosis Status: Acute Assessment and Plan: 2/ ELA. pH 7.289, pCO2 28.8, pO2 93.5, TCO2 10, Na 137, K 4.2, Cl 101, anion gap 26 * 02/06/22 Give 150 mEQ sodium bicarb in sterile water @100 mL/hour. * 02/07/22 Resume NS@125 mL/hour after bicarb fluids infused. * TCO2 17, anion gap 25. * Trend CMP (3) ELA (acute kidney injury): Code(s): N17.9 - Acute kidney failure, unspecified Status: Acute Assessment and Plan: BUN 49, creatinine 3.6, GFR 12; On 02/03/22 BUN 18, creatinine 38, GFR 53. 2/2 dehydration and NSAIDs * Continue IV fluids; increase NS@125 mL/hour. * Monitor I/O * Trend CMP daily. * Hold celebrex and avoid nephrotoxic agents * 02/07/22 BUN 57, creatinine 3.3, GFR 13. * Consult Nephrology if no improvement in am. (4) Acute dehydration: Code(s): E86.0 - Dehydration Status: Acute Assessment and Plan: C/o increased ileostomy output, intractable N/V and poor oral intake. BUN 49, creatinine 3.6, GFR 12, Tbili 1.5 suggesting dehydration. * as above (5) Increased ileostomy output: Code(s): R19.8 - Other specified symptoms and signs involving the digestive system and abdomen; Z93.2 - Ileostomy status Status: Acute Assessment and Plan: Ileostomy since 2007 for ulcerative colitis. Increase stool output since 02/03/22. * Check stool cdiff, stool culture, norovirus, O&P * Monitor electrolytes and replace as needed. * Check TSH * Add metamucil for bulking stool (6) Hypertension: Qualifiers: Hypertension type: primary hypertension Qualified Code(s): I10 - Essential (primary) hypertension Code(s): I10 - Essential (primary) hypertension Status: Chronic Assessment and Plan: Chronic, vitals reviewed and stable * Continue amlodipine at home dose and hold SBP<110. (7) Obstructive sleep apnea: Code(s): G47.33 - Obstructive sleep apnea (adult) (pediatric) Status: Chronic Assessment and Plan: Chronic, stable, continue CPAP autotitrate/home setting at (8) GERD (gastroesophageal reflux disease): Code(s): K21.9 - Gastro-esophageal reflux disease without esophagitis Status: Chronic Assessment and Plan: Chronic. +indigestion. * Add IV protonix and PRN mylanta Plan CODE STATUS: FULL CODE Disposition: home Estimated LOS >3 midnights Time Spent With Patient Time with patient: 15 - 25 minutes Subjective Date/time seen: 02/07/22 07:33 Interval history: Patient is am 81 yo female with medical comorbidities of hypertension, obesity, GERD, and DULCE on CPAP. She has a history of ulcerative colitis with ileostomy creation in 2007. She presented to the ED for evaluation of intractable nausea and vomiting. The patient was seen in our ED on 02/03/22 and 02/04/22 for increased ileostomy output, nausea and vomiting. She reports mild abdominal discomfort and increased ileostomy output since Wednesday afternoon.? She reports her nausea has resolved. No emesis or abdominal pain. Her i
--- NOTE | 2022-02-07 07:33 | PM.IMPN ---
Progress Note: A&P Assessment and Plan (1) Intractable nausea and vomiting: Code(s): R11.2 - Nausea with vomiting, unspecified Status: Acute Assessment and Plan: Possibly secondary to gastroenteritis. 02/03/22 CT Abd/pelvis without acute findings. WBC 11. Repeat CT scan w/o contrast 02/06 negative for acute disease. PRN IV phenergan; Advance diet to bland diet. (2) Metabolic acidosis, increased anion gap: Code(s): E87.2 - Acidosis Status: Acute Assessment and Plan: 2 ELA. pH 7.289, pCO2 28.8, pO2 93.5, TCO2 10, Na 137, K 4.2, Cl 101, anion gap 26 02/06/22 Give 150 mEQ sodium bicarb in sterile water @100 mL/hour. 02/07/22 Resume NS@125 mL/hour after bicarb fluids infused. TCO2 17, anion gap 25. Trend CMP (3) ELA (acute kidney injury): Code(s): N17.9 - Acute kidney failure, unspecified Status: Acute Assessment and Plan: BUN 49, creatinine 3.6, GFR 12; On 02/03/22 BUN 18, creatinine 38, GFR 53. 2/2 dehydration and NSAIDs Continue IV fluids; increase NS@125 mL/hour. Monitor I/O Trend CMP daily. Hold celebrex and avoid nephrotoxic agents 02/07/22 BUN 57, creatinine 3.3, GFR 13. Consult Nephrology if no improvement in am. (4) Acute dehydration: Code(s): E86.0 - Dehydration Status: Acute Assessment and Plan: C/o increased ileostomy output, intractable N/V and poor oral intake. BUN 49, creatinine 3.6, GFR 12, Tbili 1.5 suggesting dehydration. as above (5) Increased ileostomy output: Code(s): R19.8 - Other specified symptoms and signs involving the digestive system and abdomen; Z93.2 - Ileostomy status Status: Acute Assessment and Plan: Ileostomy since 2007 for ulcerative colitis. Increase stool output since 02/03/22. Check stool cdiff, stool culture, norovirus, O&P Monitor electrolytes and replace as needed. Check TSH Add metamucil for bulking stool (6) Hypertension: Qualifiers: Hypertension type: primary hypertension Qualified Code(s): I10 - Essential (primary) hypertension Code(s): I10 - Essential (primary) hypertension Status: Chronic Assessment and Plan: Chronic, vitals reviewed and stable Continue amlodipine at home dose and hold SBP<110. (7) Obstructive sleep apnea: Code(s): G47.33 - Obstructive sleep apnea (adult) (pediatric) Status: Chronic Assessment and Plan: Chronic, stable, continue CPAP autotitrate/home setting at (8) GERD (gastroesophageal reflux disease): Code(s): K21.9 - Gastro-esophageal reflux disease without esophagitis Status: Chronic Assessment and Plan: Chronic. +indigestion. Add IV protonix and PRN mylanta Plan CODE STATUS: FULL CODE Disposition: home Estimated LOS >3 midnights Time Spent With Patient Time with patient: 15 - 25 minutes Subjective Date/time seen: 02/07/22 07:33 Interval history: Patient is am 81 yo female with medical comorbidities of hypertension, obesity, GERD, and DULCE on CPAP. She has a history of ulcerative colitis with ileostomy creation in 2007. She presented to the ED for evaluation of intractable nausea and vomiting. The patient was seen in our ED on 02/03/22 and 02/04/22 for increased ileostomy output, nausea and vomiting. She reports mild abdominal discomfort and increased ileostomy output since Wednesday afternoon.? She reports her nausea has resolved. No emesis or abdominal pain. Her ileostomy output is still significant. She feels tired and weak but she does not want to participate in PT/OT at this time. She thinks it is not necessary. Review of Systems Review of Systems: All systems reviewed & are unremarkable except as noted in HPI and below Exam Narrative: General: No acute distress. Non-toxic appearing. Neuro: awake, alert and oriented x4, speech clear, no focal neuro deficits noted HEENT:? normocephalic, pupils equal and round, s
--- NOTE | 2022-02-07 11:29 | PHAR ---
HOME MED VERIFIED ESTEFANI 128 5% 1 DROP RIGHT EYE Q 2 HOURS DARIN
[2022-02-07 11:59] LABS: Toxigenic C. Diff NEGATIVE (NEGATIVE)
[2022-02-07] MEDS: SODIUM CHLORIDE 0.9% IV 1,000 ML 125 ML IV CONT ×2 (12:36→17:03)
[2022-02-07] MEDS: prednisoLONE ACETATE 1% OPHTH 5 ML 1 DROP RIGHT EYE ×6 (12:37→23:03)
[2022-02-07 14:00] VITALS: BP 118/67; PULSE 95; RESP 18; TEMP 36.6; O2SAT 98
[2022-02-07] MEDS: MAG HYDROX/AL HYDROX/SIMETH 30 ML UDC PO (15:29)
[2022-02-07] MEDS: PANTOPRAZOLE SODIUM IV 40 MG VIAL IV PUSH (15:29)
[2022-02-07] MEDS: amLODIPine BESYLATE 5 MG TABLET 10 MG PO (17:58)
[2022-02-07] MEDS: PROMETHAZINE HCL 25 MG/ML AMPUL 12.5 MG IV PUSH (20:53)
[2022-02-07 21:27] VITALS: BP 118/63; PULSE 102; RESP 16; TEMP 36.8; O2SAT 95
[2022-02-07] MEDS: ONDANSETRON INJ 4 MG/2 ML VIAL IV PUSH (23:31)
[2022-02-08] MEDS: SODIUM CHLORIDE 0.9% IV 1,000 ML 125 ML IV CONT (01:45)
[2022-02-08 06:00] VITALS: BP 117/74; PULSE 88; RESP 20; TEMP 36.4; O2SAT 96
[2022-02-08 06:12] LABS: Basophils Percent Auto 0.3 % (0.2-1.2); Eosinophils Absolute Auto 0.1 K/mm3 (0-0.3); Eosinophils Percent Auto 0.7 % (0-4.4); Hemoglobin 14.2 g/dL (12.0-15.0); Immature Granulocyte Absolute 0.07 K/mm3 (0.00-0.031); Lymphocytes Absolute Auto 1.41 K/mm3 (0.9-3.2); Lymphocytes Percent Auto 19.2 % (18.3-44.2); Mean Corpuscular HGB Conc 33.8 g/dl (32-36); Mean Corpuscular Hemoglobin 30.2 pg (26-34); Mean Corpuscular Volume 89.4 fl (80-100); Mean Platelet Volume 10.9 fl (7.4-10.4); Monocytes Absolute Auto 1.3 K/mm3 (0.1-0.6); Monocytes Percent Auto 18.1 % (2.6-8.5); Neutrophils Absolute Auto 4.5 K/mm3 (1.3-6.7); Neutrophils Percent Auto 60.7 % (45.5-73.1); Platelet Count Result 278 k/mm3 (150-375); Red Cell Distribution Width 13.5 % (11.5-14.5); White Blood Count 7.4 K/mm3 (4.5-10.0)
[2022-02-08 06:31] LABS: Alanine Aminotransferase 65 U/L (6-35); Albumin Level 4.1 g/dL (3.5-5.1); Alkaline Phosphatase 65 U/L (38-126); Anion Gap 13 mmol/L (8-16); Aspartate Amino Transferase 64 U/L (14-36); Bilirubin,Total 1.2 mg/dL (0.2-1.3); Blood Urea Nitrogen 34 mg/dL (7-17); Calcium 7.8 mg/dL (8.4-10.2); Carbon Dioxide 22 mmol/L (22-30); Chloride 104 mmol/L (98-107); Estimated CRCL calculation 31 ml/min; Estimated Glomerular Filt Rate 43; Glucose 105 mg/dL (65-110); Potassium 3.2 mmol/L (3.4-5.0); Sodium 139 mmol/L (137-145)
[2022-02-08] MEDS: HEPARIN SODIUM 5,000 UNITS/ML VIAL 5000 UNITS SUB-Q ×3 (06:33→21:26)
[2022-02-08] MEDS: prednisoLONE ACETATE 1% OPHTH 5 ML 1 DROP RIGHT EYE ×8 (06:50→21:29)
[2022-02-08] MEDS: SODIUM CHLORIDE 0.9% IV 1,000 ML 70 ML IV CONT (08:35)
[2022-02-08] MEDS: PANTOPRAZOLE SODIUM IV 40 MG VIAL IV PUSH (08:36)
[2022-02-08] MEDS: POTASSIUM CHLORIDE INJ 40 MEQ in SODIUM CHLORIDE 0.9% IV 500 ML 130 MEQ IVPB (09:44)
--- NOTE | 2022-02-08 10:10 | P.PNIM_ITS ---
Progress Note: A&P Assessment and Plan (1) Intractable nausea and vomiting: Code(s): R11.2 - Nausea with vomiting, unspecified Status: Acute Assessment and Plan: Presumed secondary to gastroenteritis. 02/03/22 CT Abd/pelvis without acute findings. WBC 11. * Repeat CT scan w/o contrast 02/06 negative for acute disease. * PRN IV phenergan; * 02/08/22 improving. Change to regular diet. Saline lock IV fluids. Encourage p.o. intake. (2) Metabolic acidosis, increased anion gap: Code(s): E87.2 - Acidosis Status: Resolved Assessment and Plan: 07/02 ELA. pH 7.289, pCO2 28.8, pO2 93.5, TCO2 10, Na 137, K 4.2, Cl 101, anion gap 26 * 02/06/22 Give 150 mEQ sodium bicarb in sterile water @100 mL/hour. * 02/07/22 Resume NS@125 mL/hour after bicarb fluids infused. TCO2 17, anion gap 25. * Resolved. BUN 34, creatinine 1.2, GFR 43, sodium 139, potassium 3.2, chloride 104, TCO2 22, anion gap 13 (3) ELA (acute kidney injury): Code(s): N17.9 - Acute kidney failure, unspecified Status: Acute Assessment and Plan: BUN 49, creatinine 3.6, GFR 12; On 02/03/22 BUN 18, creatinine 38, GFR 53. 2/2 dehydration and NSAIDs * Continue IV fluids; increase NS@125 mL/hour. * Monitor I/O * Trend CMP daily. * Hold celebrex and avoid nephrotoxic agents * 02/07/22 BUN 57, creatinine 3.3, GFR 13. * 02/08/22 BUN 34, creatinine 1.2, GFR 43, sodium 139, potassium 3.2, chloride 104, TCO2 22, anion gap 13. Saline lock IV fluids today. Encourage oral fluid intake. Potassium 40 mEq p.o. ordered but patient refusing, instead patient given 40 mEq IV piggyback x1. Repeat CMP tomorrow. (4) Acute dehydration: Code(s): E86.0 - Dehydration Status: Acute Assessment and Plan: C/o increased ileostomy output, intractable N/V and poor oral intake. BUN 49, creatinine 3.6, GFR 12, Tbili 1.5 suggesting dehydration. * as above (5) Transaminitis: Code(s): R74.01 - Elevation of levels of liver transaminase levels Status: Acute Assessment and Plan: today with mildly elevated AST 64, ALT 65, alk phos and T bili within normal limits. Patient denies abdominal pain at this time. * unclear etiology. 02/06 CT abdomen/pelvis without contrast does not show any acute liver or gallbladder disease. * repeat CMP tomorrow. * Consider abdominal ultrasound in a.m. if still elevated. (6) Increased ileostomy output: Code(s): R19.8 - Other specified symptoms and signs involving the digestive system and abdomen; Z93.2 - Ileostomy status Status: Acute Assessment and Plan: Ileostomy since 2007 for ulcerative colitis. Increase stool output since 02/03/22. Unclear etiology. May be secondary to gastroenteritis. * stool cdiff, stool culture, norovirus, O&P - All cultures negative to date. * Monitor electrolytes and replace as needed. * TSH Within normal limits * metamucil for bulking stool added however patient is refusing supplement at this time. Encourage dietary fiber from food. * patient is seen by GI from an outside facility. She would like to continue following with her own provider. We discussed contacting her provider on Wednesday to schedule appointment for further evaluation. (7) Hypertension: Qualifiers: Hypertension type: primary hypertension Qualified Code(s): I10 - Essential (primary) hypertension Code(s): I10 - Essential (primary) hypertension Status: Chronic Assessment and Plan: Chronic, vitals reviewed and stable * Continue amlodipine at home
[2022-02-08] MEDS: ONDANSETRON INJ 4 MG/2 ML VIAL IV PUSH ×2 (13:12→21:26)
[2022-02-08 14:10] VITALS: BP 117/61; PULSE 85; RESP 12; TEMP 37; O2SAT 96
[2022-02-08 20:00] VITALS: PULSE 85; RESP 12; O2SAT 96
[2022-02-08 21:24] VITALS: BP 115/62; PULSE 84; RESP 18; TEMP 37.1; O2SAT 95
[2022-02-09 05:20] LABS: Basophils Absolute Auto 0.1 K/mm3 (0.0-0.1); Basophils Percent Auto 0.5 % (0.2-1.2); Eosinophils Absolute Auto 0.2 K/mm3 (0-0.3); Eosinophils Percent Auto 1.6 % (0-4.4); Hematocrit 40.3 % (37.0-47.0); Hemoglobin 13.5 g/dL (12.0-15.0); Immature Granulocyte Absolute 0.16 K/mm3 (0.00-0.031); Immature Granulocyte Percent A 1.6 % (0-0.5); Lymphocytes Absolute Auto 1.58 K/mm3 (0.9-3.2); Lymphocytes Percent Auto 15.4 % (18.3-44.2); Mean Corpuscular HGB Conc 33.5 g/dl (32-36); Mean Corpuscular Volume 89.6 fl (80-100); Mean Platelet Volume 10.6 fl (7.4-10.4); Monocytes Absolute Auto 1.7 K/mm3 (0.1-0.6); Monocytes Percent Auto 16.8 % (2.6-8.5); Neutrophils Absolute Auto 6.6 K/mm3 (1.3-6.7); Neutrophils Percent Auto 64.1 % (45.5-73.1); Platelet Count Result 256 k/mm3 (150-375); Red Cell Distribution Width 13.4 % (11.5-14.5); White Blood Count 10.2 K/mm3 (4.5-10.0)
[2022-02-09 05:35] VITALS: BP 111/61; PULSE 85; RESP 17; TEMP 36.6; O2SAT 95
[2022-02-09] MEDS: HEPARIN SODIUM 5,000 UNITS/ML VIAL 5000 UNITS SUB-Q (05:40)
[2022-02-09] MEDS: prednisoLONE ACETATE 1% OPHTH 5 ML 1 DROP RIGHT EYE ×2 (05:41→08:54)
[2022-02-09 06:50] LABS: Alanine Aminotransferase 84 U/L (6-35); Albumin Level 3.9 g/dL (3.5-5.1); Alkaline Phosphatase 63 U/L (38-126); Anion Gap 10 mmol/L (8-16); Aspartate Amino Transferase 56 U/L (14-36); Blood Urea Nitrogen 18 mg/dL (7-17); Calcium 8.6 mg/dL (8.4-10.2); Carbon Dioxide 23 mmol/L (22-30); Chloride 103 mmol/L (98-107); Estimated CRCL calculation 40 ml/min; Estimated Glomerular Filt Rate 60; Glucose 117 mg/dL (65-110); Potassium 3.4 mmol/L (3.4-5.0); Sodium 136 mmol/L (137-145)
[2022-02-09 08:18] LABS: Hepatitis B Surface Antigen Negative (Negative)
[2022-02-09 08:30] LABS: HAV RESULT Negative (Negative); Hepatitis B Core IgM Result Negative (Negative)
[2022-02-09] MEDS: PANTOPRAZOLE SODIUM IV 40 MG VIAL IV PUSH (08:54)
[2022-02-09] MEDS: COLESTIPOL HCL 1 GM TABLET PO (08:55)
--- NOTE | 2022-02-09 09:00 | PM.DS ---
DS: Admitting Diagnosis Discharge Date 02/09/22 0900 Admitting Diagnosis ELA/dehydration DS: Discharge Diagnosis Discharge Diagnosis (1) Intractable nausea and vomiting: Code(s): R11.2 - Nausea with vomiting, unspecified Status: Acute Assessment and Plan: Presumed secondary to gastroenteritis. 02/03/22 CT Abd/pelvis without acute findings. WBC 11. Repeat CT scan w/o contrast 02/06 negative for acute disease. PRN IV phenergan; 02/08/22 improving. Change to regular diet. Saline lock IV fluids. Encourage p.o. intake. (2) Metabolic acidosis, increased anion gap: Code(s): E87.2 - Acidosis Status: Resolved Assessment and Plan: 07/02 ELA. pH 7.289, pCO2 28.8, pO2 93.5, TCO2 10, Na 137, K 4.2, Cl 101, anion gap 26 02/06/22 Give 150 mEQ sodium bicarb in sterile water @100 mL/hour. 02/07/22 Resume NS@125 mL/hour after bicarb fluids infused. TCO2 17, anion gap 25. Resolved. BUN 34, creatinine 1.2, GFR 43, sodium 139, potassium 3.2, chloride 104, TCO2 22, anion gap 13 (3) ELA (acute kidney injury): Code(s): N17.9 - Acute kidney failure, unspecified Status: Acute Assessment and Plan: BUN 49, creatinine 3.6, GFR 12; On 02/03/22 BUN 18, creatinine 38, GFR 53. 2/2 dehydration and NSAIDs Continue IV fluids; increase NS@125 mL/hour. Monitor I/O Trend CMP daily. Hold celebrex and avoid nephrotoxic agents 02/07/22 BUN 57, creatinine 3.3, GFR 13. 02/08/22 BUN 34, creatinine 1.2, GFR 43, sodium 139, potassium 3.2, chloride 104, TCO2 22, anion gap 13. Saline lock IV fluids today. Encourage oral fluid intake. Potassium 40 mEq p.o. ordered but patient refusing, instead patient given 40 mEq IV piggyback x1. Repeat CMP tomorrow. (4) Acute dehydration: Code(s): E86.0 - Dehydration Status: Acute Assessment and Plan: C/o increased ileostomy output, intractable N/V and poor oral intake. BUN 49, creatinine 3.6, GFR 12, Tbili 1.5 suggesting dehydration. as above (5) Transaminitis: Code(s): R74.01 - Elevation of levels of liver transaminase levels Status: Acute Assessment and Plan: today with mildly elevated AST 64, ALT 65, alk phos and T bili within normal limits. Patient denies abdominal pain at this time. unclear etiology. 02/06 CT abdomen/pelvis without contrast does not show any acute liver or gallbladder disease. repeat CMP tomorrow. Consider abdominal ultrasound in a.m. if still elevated. (6) Increased ileostomy output: Code(s): R19.8 - Other specified symptoms and signs involving the digestive system and abdomen; Z93.2 - Ileostomy status Status: Acute Assessment and Plan: Ileostomy since 2007 for ulcerative colitis. Increase stool output since 02/03/22. Unclear etiology. May be secondary to gastroenteritis. stool cdiff, stool culture, norovirus, O&P - All cultures negative to date. Monitor electrolytes and replace as needed. TSH Within normal limits metamucil for bulking stool added however patient is refusing supplement at this time. Encourage dietary fiber from food. patient is seen by GI from an outside facility. She would like to continue following with her own provider. We discussed contacting her provider on Wednesday to schedule appointment for further evaluation. (7) Hypertension: Qualifiers: Hypertension type: primary hypertension Qualified Code(s): I10 - Essential (primary) hypertension Code(s): I10 - Essential (primary) hypertension Status: Chronic Assessment and Plan: Chronic, vitals reviewed and stable Continue amlodipine at home dose and hold SBP<110. (8) Obstructive sleep apnea: Code(s): G47.33 - Obstructive sleep apnea (adult) (pediatric) Status: Chronic Assessment and Plan: Chronic, stable, continue CPAP autotitrate/home setting at (9) GERD (gastroesophageal reflux disease): Code(s): K21.9 - Gas
[2022-02-09 12:39] LABS: Hepatitis C Virus Antibody Negative (Negative)
== END 2022-02-09 10:55 | disposition home or self-care (01) | DRG 683 ==
LOC: ANHED 09:55 → ANH2MED 10:16
PROVIDERS: Nurse Practitioner Family; Admitting Provider Hospitalist; Emergency Provider Emergency Medicine; Visit Provider Nurse Practitioner
DX: N17.9 Acute kidney failure, unspecified (principal); E87.2 Acidosis; T39.395A Adverse effect of other nonsteroidal anti-inflammatory drugs [NSAID], initial encounter; K52.9 Noninfective gastroenteritis and colitis, unspecified; E86.0 Dehydration; R74.01 Elevation of levels of liver transaminase levels; R19.8 Other specified symptoms and signs involving the digestive system and abdomen; Z93.2 Ileostomy status; I10 Essential (primary) hypertension; G47.33 Obstructive sleep apnea (adult) (pediatric); K21.9 Gastro-esophageal reflux disease without esophagitis; I27.20 Pulmonary hypertension, unspecified; I35.0 Nonrheumatic aortic (valve) stenosis; E78.00 Pure hypercholesterolemia, unspecified; E66.9 Obesity, unspecified; Z68.29 Body mass index [BMI] 29.0-29.9, adult; Z79.899 Other long term (current) drug therapy
CPT/HCPCS: 36415; 36600; 74176; 74177; 80053; 80074; 81001; 82805; 83605; 83690; 83735; 84443; 85025; 87045; 87086; 87088; 87177; 87209; 87427; 87493; 87502; 96360; 96361; 96374; 96375; 99283; 99284; 99285; A9270; C9113; C9803; G0378; J1644; J2405; J2550; J2765; J3480; J7030; J7040; Q9967; U0003; U0005

== ENCOUNTER 2022-02-19 07:28 | Outpatient (CLI) | payer MEDICARE, OTHER, SELFPAY ==
--- NOTE | 2022-03-28 11:28 | WPDSLEEPSTUD ---
Sleep Study Date of Study: 02/19/22 Ordering Provider: Morgan Boss MD Interpreting Physician: Alisha Jay MD Sleep Study Type: Split Polysomnogram Height: 1.63 m Weight: 74.843 kg Body Mass Index: 28.3 Neck Circumference (inches): 15 [place]: 8 Reason for Sleep Study Obstructive sleep apnea syndrome, difficulty using current CPAP, non restorative sleep with CPAP Sleep History Rosaura Reyes is an 81-year-old female with obstructive sleep apnea syndrome and history of hypertension. She is unable to sleep well using the CPAP or without using it. She is usually using it for about 4 hours sometimes up to 6 hours. She has difficulty falling asleep and staying asleep. She has been on CPAP for 6 years. She rarely awakens from sleep feeling short of breath, she never wakes at night with heartburn, belching or coughing. She occasionally snores but only rarely is her snoring loud enough to bother others. She occasionally has trouble sleeping with a cold. She never wakes up gasping for breath at night. She rarely has breathing problems at night observed by others. She occasionally sweats excessively night. She rarely notices her heart pounding or beating irregularly at night. she occasionally falls asleep during the day. She occasionally falls asleep involuntarily. She never falls asleep while driving. She does not have loss of muscle tone with strong emotion. She rarely has daytime difficulties due to excessive sleepiness. She does not feel paralyzed on waking or falling asleep. She occasionally has vivid dreamlike scenes upon awakening or falling asleep. She never feels afraid to go to sleep. She rarely has nightmares. She rarely remembers her dreams. She occasionally has racing thoughts. She rarely feels sad depressed or anxious. She occasionally has muscular tension. She occasionally notices parts of her body jerking. She occasionally kicks at night. She rarely has crawling aching feelings in her legs. She occasionally has leg pain at night. She does not have morning jaw pain. She never grinds her teeth during sleep. She frequently is bothered by pain during the day. She occasionally is awakened by pain at night. She frequently wakes up feeling stiff in the morning with sore achy muscles and pain in the neck and spine. She has fatigue and insomnia. Normal bedtime between 10:00 p.m. and 10:30 p.m., sometimes falling asleep quickly other times taking hours to fall asleep. She wakes up 3-4 times during the night. While awake, she will rest in bed and prays. She wakes the morning between 7:00 a.m. and 8:00 a.m.. She keeps the same schedule on weekends. She estimates getting between 7 to 9 hours of sleep at night. She takes naps at times. A short nap lasting 10 or 15 minutes might be refreshing. Most of the time she feels adequate when she wakes the morning. She feels better in the morning compared to other times of day. Habits: Never used tobacco. No caffeine, alcohol or recreational drugs. [facility] Past Medical History Medical History Acute diastolic CHF (congestive heart failure) Aortic stenosis Arthritis pseudogout History of gastroesophageal reflux (GERD) Hypercholesteremia Hypertension Obesity 02/06/22 BMI 29 Obstructive sleep apnea compliant with cpap Pulmonary hypertension Ulcerative colitis s/p ileostomy Valvular heart disease Surgical History Surgical History H/O hemorrhoidectomy H/O ileostomy History of cholecystectomy History of cornea transplant History of left knee replacement Family History Family History Father Family history of respiratory disorder, Onset Age: 63 Liver disease Sibling Diabetes mellitus COPD (chronic obstructive pulmonary disease) Hypertension Sibling Crohn's disease Diabetes m
[2022-03-28 14:21] VITALS: BMI 28.3
== END 2022-02-20 05:56 | disposition home or self-care (01) ==
PROVIDERS: Visit Provider Internal Medicine Pulmonary Disease
DX: G47.61 Periodic limb movement disorder (principal); G47.33 Obstructive sleep apnea (adult) (pediatric)
CPT/HCPCS: 95811

== ENCOUNTER 2022-02-24 10:39 | Outpatient (CLI) | payer MEDICARE, OTHER, SELFPAY ==
[2022-02-24 11:31] LABS: Anion Gap 13 mmol/L (8-16); Blood Urea Nitrogen 13 mg/dL (7-17); Calcium 9.2 mg/dL (8.4-10.2); Carbon Dioxide 25 mmol/L (22-30); Chloride 103 mmol/L (98-107); Estimated Glomerular Filt Rate 60; Glucose 99 mg/dL (65-110); Sodium 141 mmol/L (137-145)
== END 2022-02-24 10:40 | disposition home or self-care (01) ==
LOC: ANHLAB 10:42
PROVIDERS: Visit Provider Internal Medicine Cardiovascular Disease
DX: R06.02 Shortness of breath (principal)
CPT/HCPCS: 36415; 80048

== ENCOUNTER 2022-03-21 20:31 | Inpatient (IN) | payer MEDICARE, OTHER, SELFPAY ==
[2022-03-21] VITALS (12 sets, daily range): BP systolic 125–138; BP diastolic 58–85; PULSE 75–91; RESP 14–24; TEMP 36.8–36.9; O2SAT 75–94; BMI 30.2
--- NOTE | ~2022-03-21 | XR_ITS ---
EXAMINATION: XR chest 2V DATE: 03/21/2022 21:31 INDICATION: Shortness of breath, hypoxia and atrial fibrillation. TECHNIQUE: frontal and lateral views of the chest were obtained. COMPARISON: Chest radiograph dated 06/28/2019 FINDINGS: Opacities at the bilateral lung bases correspond to small bilateral pleural effusions and associated atelectasis. Additional interstitial and less dense patchy airspace opacities in the bilateral mid an d lower lung zones most likely representing pulmonary edema although differential includes pneumonia. The cardiomediastinal silhouette is normal. Moderate degenerative skeletal changes in the spine and bilateral shoulders. Thoracic kyphosis and bridging osteophytes at multiple levels in the thoracic an d upper lumbar spine consistent with bridging osteophytes at multiple levels consistent with diffuse idiopathic skeletal hyperostosis (DISH). IMPRESSION: 1. Opacities in bilateral mid and lower lung zones most likely related to mild to moderate pulmonary edema although differential includes pneumonia. 2. Small bilateral pleural effusions with associated basilar atelectasis. Reviewed, dictated and finalized at location A.
--- NOTE | ~2022-03-21 | CT_ITS ---
EXAMINATION:CT diagnostic chest w con DATE: 03/22/2022 16:30 INDICATION: Shortness of breath. TECHNIQUE: Computed tomography (CT) of the chest was performed with 75 mL Omnipaque 350 intravenous c ontrast. Automated exposure control and iterative reconstruction technique were employed. The dose-le ngth product (DLP) was 421.97 mGy-cm. COMPARISON: CT abdomen and pelvis 02/06/2022 FINDINGS: There are moderate-sized pleural effusions. There is dependent atelectasis bilaterally. The re is smooth septal thickening in the lungs, consistent with pulmonary edema. Calcified pulmonary nod ules and calcified hilar lymph nodes are consistent with old granulomatous disease. Cardiomegaly is n oted. No pericardial effusion. The central pulmonary arteries are enlarged, consistent with pulmonary arterial hypertension. Calcifications in the spleen are consistent with old granulomatous disease. T here is cortical thinning of the kidneys. There is a 5 mm stone in right kidney. There is kyphosis of thoracic spine. There are bridging endplate osteophytes at multiple levels in the spine, consistent with diffuse idiopathic skeletal hyperostosis (DISH). IMPRESSION: 1. Mild pulmonary edema. 2. Moderate-sized pleural effusions. 3. Cardiomegaly. Reviewed, dictated and finalized at location A.
--- NOTE | 2022-03-21 20:33 | ECG_ITS ---
Measurements Intervals [place] Rate: 81 P: ME: 0 QRS: 8 QRSD: 94 T: 54 QT: 377 QTc: 438 Interpretive Statements ATRIAL FIBRILLATION NONSPECIFIC ST CHANGES NO PREVIOUS ECG AVAILABLE FOR COMPARISON Electronically Signed On 03-22-2022 8:52:08 CDT by Lia Mcgill M.D.
--- NOTE | 2022-03-21 21:17 | ED.SOB ---
HPI - SOB/Dyspnea General Chief Complaint: Shortness of Breath/Dyspnea <Rochelle Lopez PA-C - Last Filed: 03/22/22 01:34> Stated Complaint: SOB-HX of a-fib <Rochelle Lopez PA-C - Last Filed: 03/22/22 01:34> Time Seen by Provider: 03/21/22 20:49 <STEFANO Logan Last Filed: 03/22/22 01:34> Source: patient <STEFANO Logan Last Filed: 03/22/22 01:34> Mode of arrival: ambulatory <STEFANO Logan Last Filed: 03/22/22 01:34> Limitations: no limitations <STEFANO Logan Last Filed: 03/22/22 01:34> History of Present Illness HPI Narrative: Patient is an 81-year-old female who presents the ED with report of shortness of breath. Patient reports she was recently diagnosed with atrial fibrillation when she underwent a routine echocardiogram in January of this year. She is scheduled for a synchronized cardioversion this Wednesday. She reports having dyspnea with exertion for several, but states has become worse over the last 1 week. Today after walking from her bathroom to her kitchen she became severely winded. She used her home pulse oximeter and noted her oxygen to be in the upper 70s, low 80s. She called her cord cutter office and was referred to the ED for further evaluation. Patient still feels short of breath. She does not have oxygen at home. Patient also reports having a dry cough, increased BLE edema over the last 1 week. She was prescribed Lasix for this. She has not taken this today. She denies any chest pain, nausea, vomiting, abdominal pain. <STEFANO Logan Last Filed: 03/22/22 01:34> Related Data Home Medications: Home Medications Medication Instructions Recorded Confirmed celecoxib 200 mg capsule 200 mg PO QAM 06/28/19 03/22/22 prednisolone acetate 1 % eye See Rx Instructions .Route .COMPLEX 12/25/20 03/22/22 drops,suspension (Pred Forte) amiodarone 200 mg tablet 200 mg PO BID 03/22/22 03/22/22 amlodipine 10 mg tablet 10 mg PO QPM 03/22/22 03/22/22 apixaban 5 mg tablet (Eliquis) 5 mg PO BID 03/22/22 03/22/22 potassium chloride 20 mEq 20 meq PO DAILY 03/22/22 03/22/22 tablet,extended release(part/cryst) sodium chloride 5 % eye drops See Rx Instructions .Route .COMPLEX 03/22/22 03/22/22 (Cole 128) <STEFANO Logan Last Filed: 03/22/22 01:34> Allergies/Adverse Reactions: Allergies Allergy/AdvReac Type Severity Reaction Status Date / Time nitrofurantoin Allergy Severe GENERALIZED Verified 02/17/22 09:48 ENTIRE BODY TINGLING, PAIN,UNABLE TO WALK Penicillins Allergy Unknown rash Verified 02/17/22 09:48 <STEFANO Logan Last Filed: 03/22/22 01:34> Review of Systems Review of Systems: CONSTITUTIONAL: Denies fever, chills, or sweats. ENT: Denies rhinorrhea, congestion, sore throat. CARDIOVASCULAR: Reports BLE edema. Denies chest pain. RESPIRATORY: Reports dry cough, FENG, dyspnea. GASTROINTESTINAL: Denies abdominal pain, nausea, vomiting, or diarrhea. MUSCULOSKELETAL: Denies BLE pain. <STEFANO Logan Last Filed: 03/22/22 01:34> All systems reviewed & are unremarkable except as noted in HPI and below <STEFANO Logan Last Filed: 03/22/22 01:34> [facility] Past Medical History Medical History: Medical History (Updated 03/23/22 @ 16:50 by Carlos Colon MD) Acute diastolic CHF (congestive heart failure) Aortic stenosis Arthritis pseudogout History of gastroesophageal reflux (GERD) Hypercholesteremia Hypertension Obesity 02/06/22 BMI 29 Obstructive sleep apnea compliant with cpap Pulmonary hypertension Ulcerative colitis s/p ileostomy Valvular heart disease <STEFANO Logan Last Filed: 03/22/22 01:34> Surgical History Surgical History: Surgical History H/O hemorrhoidectomy H/O ileostomy History of cholecy
[2022-03-21 21:33] LABS: Basophils Absolute Auto 0.1 K/mm3 (0.0-0.1); Eosinophils Absolute Auto 0.2 K/mm3 (0-0.3); Eosinophils Percent Auto 3.1 % (0-4.4); Hematocrit 37.8 % (37.0-47.0); Hemoglobin 12.2 g/dL (12.0-15.0); Immature Granulocyte Absolute 0.02 K/mm3 (0.00-0.031); Immature Granulocyte Percent A 0.3 % (0-0.5); Lymphocytes Absolute Auto 1.73 K/mm3 (0.9-3.2); Lymphocytes Percent Auto 24.1 % (18.3-44.2); Mean Corpuscular HGB Conc 32.3 g/dl (32-36); Mean Corpuscular Hemoglobin 29.8 pg (26-34); Mean Corpuscular Volume 92.2 fl (80-100); Mean Platelet Volume 10.8 fl (7.4-10.4); Monocytes Absolute Auto 0.6 K/mm3 (0.1-0.6); Monocytes Percent Auto 8.5 % (2.6-8.5); Neutrophils Absolute Auto 4.5 K/mm3 (1.3-6.7); Platelet Count Result 261 k/mm3 (150-375); Red Cell Distribution Width 15.3 % (11.5-14.5); White Blood Count 7.2 K/mm3 (4.5-10.0)
[2022-03-21 21:43] LABS: Alanine Aminotransferase 26 U/L (6-35); Albumin Level 4.5 g/dL (3.5-5.1); Alkaline Phosphatase 68 U/L (38-126); Anion Gap 15 mmol/L (8-16); Aspartate Amino Transferase 28 U/L (14-36); Bilirubin,Total 1.4 mg/dL (0.2-1.3); Blood Urea Nitrogen 14 mg/dL (7-17); Calcium 9.2 mg/dL (8.4-10.2); Carbon Dioxide 23 mmol/L (22-30); Chloride 103 mmol/L (98-107); Estimated CRCL calculation 38 ml/min; Estimated Glomerular Filt Rate 53; Glucose 116 mg/dL (65-110); Potassium 3.7 mmol/L (3.4-5.0); Sodium 141 mmol/L (137-145)
[2022-03-21 21:55] LABS: NT Pro B Type Natriuretic Pept 1960 pg/mL (5-100); Troponin I < 0.012 ng/mL (0.000-0.034)
--- NOTE | 2022-03-21 22:17 | PM.IMHP ---
H&P: HPI History of Present Illness Date/Time: 03/21/22 22:17 Chief Complaint: shortness of breath Narrative: This is an 81-year-old female with past medical history significant for hypertension, atrial fibrillation, gastroesophageal reflux disease, dyslipidemia, pulmonary hypertension, ulcerative colitis, status post ileostomy placement. patient presents to the emergency room due to shortness of breath which initially was with exertion now is present at rest denies any chest pain, no palpitations, no dizziness, no lightheadedness, no syncope, no near syncope, patient also has obstructive sleep apnea she wears CPAP at nighttime, denies orthopnea or PND, no night sweats, no fevers, no rigors, no chills, patient also complains of bilateral lower extremity swelling. The patient was also supposed to go for cardioversion soon. Patient was found to be saturating low and require supplemental oxygen at home her pulse oximetry showed 70%.Preliminary workup was significant for BNP 1960 a chest x-ray was significant for: IMPRESSION: 1. Opacities in bilateral mid and lower lung zones most likely related to mild to moderate pulmonary edema although differential includes pneumonia. 2. Small bilateral pleural effusions with associated basilar atelectasis. Review of Systems Review of Systems: shortness of breath Constitutional: Constitutional: Denies chills, Denies fever(s) and Denies night sweats Eyes: Eyes: Denies change in vision ENT: Denies dysphagia, Denies vertigo, Denies dizziness and Denies odynophagia Cardiovascular: Cardiovascular: Denies chest pain, Denies syncope, Denies irregular heart rhythm, Reports leg edema, Denies lightheadedness, Denies palpitations, Reports dyspnea and Reports dyspnea on exertion Respiratory: Respiratory: Reports cough and Denies wheezing Gastrointestinal: Gastrointestinal: Denies abdominal pain, Denies dyspepsia, Denies heartburn, Denies diarrhea and Denies nausea Genitourinary: Genitourinary: Denies dysuria Musculoskeletal: Musculoskeletal: Denies myalgias and Denies muscle weakness Integumentary/Breasts: Skin/Breast: Denies rash Neurologic: Denies vertigo, Denies dizziness, Denies focal weakness and Denies Sensory deficit (Neuro) Psychiatric: Psychiatric: Reports no additional psychiatric complaints and Reports as per HPI Endocrine: Endocrine: Denies cold intolerance, Denies flushing, Denies heat intolerance, Denies polyphagia, Denies polydipsia and Denies palpitations Hematologic/Lymphatic: Hematologic/Lymphatic: Reports no additional hematologic/lymphatic complaints and Reports as per HPI Allergic/Immunologic: Allergic/Immunologic: Reports no additional allergic/immunologic complaints and Reports as per HPI [facility] Past Medical History Medical History (Updated 03/22/22 @ 02:28 by Priscila Medrano MD) Aortic stenosis Arthritis pseudogout History of gastroesophageal reflux (GERD) Hypercholesteremia Hypertension Obesity 02/06/22 BMI 29 Obstructive sleep apnea compliant with cpap Pulmonary hypertension Ulcerative colitis s/p ileostomy Surgical History Surgical History H/O hemorrhoidectomy H/O ileostomy History of cholecystectomy History of cornea transplant History of left knee replacement Family History Family History Father Family history of respiratory disorder, Onset Age: 63 Sibling Diabetes mellitus Other Family history of malignant neoplasm of breast Family history of malignant neoplasm of cervix Social History Social History Smoking status: Never smoker Second hand tobacco smoke exposure: No Alcohol intake: never Substance use: never Substance use type: does not use Additional living arrangements comments: lives with spouse Gender identity (if verbalized by the
[2022-03-21] MEDS: FUROSEMIDE INJ 40 MG/4 ML VIAL IV PUSH (22:19)
[2022-03-22] VITALS (10 sets, daily range): BP systolic 101–117; BP diastolic 41–62; PULSE 38–77; RESP 16–20; TEMP 36.1–36.6; O2SAT 90–93
--- NOTE | 2022-03-22 00:02 | ADMGEN ---
This patient, Rosaura Reyes, was admitted to [facility] Surg Room 312-01. Patient/family oriented to hospital policies and general routines including ID bracelet, bed and alarms, visiting hours, pain management, procedures, bathroom and other care routines, personal items, smoking policy, room service/diet, and visiting hours. Information on how to activate the Rapid Response Team has been discussed. Patient/Family are encouraged to report perceived risks to care and to ask questions if they do not understand what they are told or what they should do.
[2022-03-22] MEDS: cefTRIAXone 2 GM in SODIUM CHLORIDE 0.9% IV 100 ML 200 ML IVPB (01:59)
--- NOTE | 2022-03-22 03:06 | PCRCNOTE ---
Patient refused her CPAP. She states she has one at home but she doesn't always wear it.
[2022-03-22] MEDS: AMIODARONE HCL 200 MG TABLET PO ×2 (08:13→17:31)
[2022-03-22] MEDS: APIXABAN 5 MG TABLET PO ×2 (08:15→20:50)
[2022-03-22] MEDS: CELECOXIB 200 MG CAPSULE PO (08:15)
[2022-03-22] MEDS: SODIUM CHLORIDE 5% OP SOLN 15 ML BTL 1 DROP RIGHT EYE ×7 (08:16→21:05)
[2022-03-22] MEDS: WATER FOR IRRIGATION, STERILE 1,000 ML BOTTLE 1000 ML (08:16)
[2022-03-22] MEDS: FUROSEMIDE INJ 40 MG/4 ML VIAL IV PUSH ×2 (08:16→17:31)
[2022-03-22] MEDS: prednisoLONE ACETATE 1% OPHTH 5 ML 1 DROP RIGHT EYE ×8 (08:16→21:55)
--- NOTE | 2022-03-22 11:13 | PM.IMPN ---
Progress Note: A&P Assessment and Plan (1) Acute congestive heart failure: Qualifiers: Heart failure type: unspecified Qualified Code(s): I50.9 - Heart failure, unspecified Code(s): I50.9 - Heart failure, unspecified Status: Acute Assessment and Plan: admit to [facility] tele aggressive diuresis echocardiogram in a.m. daily weight daily intake and output cardiology consult (2) Acute respiratory failure with hypoxia: Code(s): J96.01 - Acute respiratory failure with hypoxia Status: Acute Assessment and Plan: likely secondary to 1. Patient also with infiltrates seen on chest x-ray will obtain CT high-resolution of the chest started on Rocephin and Zithromax cultures in progress (3) Atrial fibrillation: Qualifiers: Atrial fibrillation type: unspecified Qualified Code(s): I48.91 - Unspecified atrial fibrillation Code(s): I48.91 - Unspecified atrial fibrillation Status: Acute Assessment and Plan: rate controlled on anticoagulation patient was supposed to go for cardioversion soon Likely contributing factor to acute CHF. (4) Lung infiltrate: Code(s): R91.8 - Other nonspecific abnormal finding of lung field Status: Acute Assessment and Plan: started on antibiotics (5) Obstructive sleep apnea: Code(s): G47.33 - Obstructive sleep apnea (adult) (pediatric) Status: Chronic Assessment and Plan: continue CPAP at nighttime (6) GERD (gastroesophageal reflux disease): Code(s): K21.9 - Gastro-esophageal reflux disease without esophagitis Status: Chronic Assessment and Plan: PPI as needed (7) Ulcerative colitis: Code(s): K51.90 - Ulcerative colitis, unspecified, without complications Status: Acute Assessment and Plan: status post ileostomy Subjective Date/time seen: 03/22/22 11:13 Patient is still having some shortness of breath. Currently on oxygen. Exam Const: General: cooperative, comfortable, no acute distress, well developed, alert, awake, average body habitus and other ( well-appearing) Nutritional Appearance: average body habitus Orientation/consciousness: patient oriented x3 HENMT: Head: normal to inspection, normocephalic and atraumatic Ears: hearing grossly normal bilaterally Face/Nose/Sinus: normal facial exam Face and sinus: normal facial exam Eyes: General: appearance normal, both eyes and all related structures Pupils: Equal, round and reactive pupils present EOM: EOMs intact bilaterally Neck: Neck: full ROM, no lymphadenopathy and no JVD Thyroid: thyroid normal Lymphatic: no lymphadenopathy noted Resp: Effort & Inspection: normal respiratory effort and able to speak in complete sentences Auscultation: crackles and diminished lung sounds bilateral (base) Cardio: Jugular venous distension: no JVD Rate: regular rate Rhythm: regular rhythm Heart sounds: S1 normal heart sound present and S2 normal heart sound present GI: Inspection: other ( ileostomy in place) : General: Yes deferred Skin: Rashes: no rashes Wounds: no wounds Neuro: General: patient oriented x3, CN's II-XI intact bilaterally and Unable to assess gait Cranial nerves: Yes CN's II-XII intact bilaterally and Yes Equal, round and reactive pupils present Cognition (Neuro): normal cognition Speech: normal speech Gait exam (Neuro): Unable to assess gait Motor exam (neuro): 5/5 motor strength present throughout Sensory Exam: No Sensory deficit (Neuro) Extrem: General: edema Objective Data Vital Signs Vital Signs: Vital Signs - 24 hr 03/21/22 20:34 03/21/22 20:53 03/21/22 20:52 Temperature 98.3 F Pulse Rate 88 79 Respiratory Rate 14 Blood Pressure 138/66 Pulse Oximetry 93 87 L Oxygen Delivery Room Air Oxygen Flow Rate 03/21/22 20:54 03/21/22 21:10 03/21/22 22:29 Temperature Pulse Rate Respiratory Rate Blood Pressure
--- NOTE | 2022-03-22 11:20 | PM.CNCAR ---
Assessment and Plan Assessment and plan (1) Atrial fibrillation: Qualifiers: Atrial fibrillation type: unspecified Qualified Code(s): I48.91 - Unspecified atrial fibrillation Code(s): I48.91 - Unspecified atrial fibrillation Status: Acute Assessment and Plan: Recent onset of new atrial fibrillation in January 2022. heart rate has been controlled but patient has noted increasing FENG recently. Anticoagulated with Eliquis starting around February 26, compliant. on amiodarone Cardioversion scheduled for tomorrow (2) Acute diastolic CHF (congestive heart failure): Code(s): I50.31 - Acute diastolic (congestive) heart failure Status: Acute Assessment and Plan: Significant acute diastolic heart failure with moderate bilateral effusions and significant hypoxia. While the atrial fibrillation may be contributing factor, her CHF is out of proportion to her AFib and I suspect a lot of this is due to diastolic heart failure. Diastolic dysfunction has been noted on some of her past echoes. Continue furosemide 40 mg IV push b.i.d. daily BMP add Jardiance or Farxiga for diastolic heart failure Discontinue Celebrex in view of her CHF. Patient is reluctant As she does not find Tylenol very effective. She has also read that Tylenol and Celebrex can contribute to hearing loss. However, after discussion of how it may be contributing to her fluid retention and CHF she agreed to discontinue it. (3) Valvular heart disease: Code(s): I38 - Endocarditis, valve unspecified Status: Acute Assessment and Plan: followed by Dr. Colon for mild to moderate aortic stenosis, mitral regurgitation tricuspid regurgitation. valve disease not severe enough to account for her CHF. History of Present Illness History of Present Illness Consult date/time: 03/22/22 11:20 Reason For Visit: Acute CHF/AFIB/Acute Hypoxic Respiratory Failure Narrative: Rosaura Villarreal it is an 81-year-old female whom I was asked to see at the request of Dr. Conti for my advice and opinion regarding her CHF and AFib in consultation. She also has mild aortic stenosis, hypertension, hyperlipidemia sleep apnea and mild pulmonary hypertension. The patient is followed by Dr. Colon in our office for who was found to be in new onset atrial fibrillation at the time of her echo in January. She was started on Eliquis And amiodarone around February 25. Her heart rate has been controlled but because of her worsening FENG she was scheduled for cardioversion on Wednesday. However she has had progressive shortness of breath with minor activity, and came to the emergency room last night with CHF and hypoxia. She is feeling better since starting IV furosemide. Her heart rate remains controlled. Review of Systems Constitutional: Constitutional: Denies fever(s) Eyes: Eyes: Reports no additional eye complaints ENT: Denies epistaxis Cardiovascular: Cardiovascular: Denies chest pain, Reports pedal edema, Denies lightheadedness, Denies palpitations and Reports dyspnea Comments: no PND or orthopnea Respiratory: Respiratory: Denies chest congestion and Denies dyspnea Comments: Infrequent swelling, usually dependent, but worse in the past 2 weeks. Mostly compliant with CPAP. Gastrointestinal: Gastrointestinal: Denies abdominal pain and Denies hematochezia Comments: Has an ileostomy. No further diarrhea after hospitalization in January. Genitourinary: Genitourinary: Denies hematuria Musculoskeletal: Musculoskeletal: Reports no additional musculoskeletal complaints Integumentary/Breasts: Skin/Breast: Reports system reviewed and no additional complaints, except as docu Neurologic: Reports system reviewed and no additional complaints, except as documented, Denies behavioral changes and Denies confusion Psychiatric: Psychiatric: Denies behavioral changes and Denies confusion
[2022-03-22] MEDS: amLODIPine BESYLATE 5 MG TABLET 10 MG PO (17:31)
[2022-03-23] VITALS (10 sets, daily range): BP systolic 100–120; BP diastolic 46–57; PULSE 61–82; RESP 16–20; TEMP 36.4–36.9; O2SAT 90–93
[2022-03-23] MEDS: cefTRIAXone 2 GM in SODIUM CHLORIDE 0.9% IV 100 ML 200 ML IVPB (01:41)
[2022-03-23 07:39] LABS: Anion Gap 12 mmol/L (8-16); Blood Urea Nitrogen 11 mg/dL (7-17); Calcium 8.1 mg/dL (8.4-10.2); Carbon Dioxide 28 mmol/L (22-30); Chloride 98 mmol/L (98-107); Estimated CRCL calculation 38 ml/min; Estimated Glomerular Filt Rate 53; Glucose 101 mg/dL (65-110); Potassium 2.7 mmol/L (3.4-5.0); Sodium 138 mmol/L (137-145)
[2022-03-23] MEDS: APIXABAN 5 MG TABLET PO ×2 (09:16→20:44)
[2022-03-23] MEDS: AMIODARONE HCL 200 MG TABLET PO ×2 (09:16→17:58)
[2022-03-23] MEDS: POTASSIUM CHLORIDE INJ 40 MEQ in SODIUM CHLORIDE 0.9% IV 500 ML 130 MEQ IVPB (09:18)
[2022-03-23] MEDS: prednisoLONE ACETATE 1% OPHTH 5 ML 1 DROP RIGHT EYE ×8 (09:21→20:00)
[2022-03-23] MEDS: SODIUM CHLORIDE 5% OP SOLN 15 ML BTL 1 DROP RIGHT EYE ×8 (09:22→21:20)
--- NOTE | 2022-03-23 11:45 | PM.IMPN ---
Progress Note: A&P Assessment and Plan (1) Acute congestive heart failure: Qualifiers: Heart failure type: unspecified Qualified Code(s): I50.9 - Heart failure, unspecified Code(s): I50.9 - Heart failure, unspecified Status: Acute Assessment and Plan: continue diuresis. Breathing is better. Oxygen requirements are much lower. (2) Acute respiratory failure with hypoxia: Code(s): J96.01 - Acute respiratory failure with hypoxia Status: Acute Assessment and Plan: likely secondary to 1. Patient also with infiltrates seen on chest x-ray will obtain CT high-resolution of the chest low suspicion of pneumonia. Will DC antibiotics. (3) Atrial fibrillation: Qualifiers: Atrial fibrillation type: unspecified Qualified Code(s): I48.91 - Unspecified atrial fibrillation Code(s): I48.91 - Unspecified atrial fibrillation Status: Acute Assessment and Plan: rate controlled on anticoagulation patient was supposed to go for cardioversion Today Likely contributing factor to acute CHF. (4) Lung infiltrate: Code(s): R91.8 - Other nonspecific abnormal finding of lung field Status: Acute Assessment and Plan: started on antibiotics (5) Obstructive sleep apnea: Code(s): G47.33 - Obstructive sleep apnea (adult) (pediatric) Status: Chronic Assessment and Plan: continue CPAP at nighttime (6) GERD (gastroesophageal reflux disease): Code(s): K21.9 - Gastro-esophageal reflux disease without esophagitis Status: Chronic Assessment and Plan: PPI as needed (7) Ulcerative colitis: Code(s): K51.90 - Ulcerative colitis, unspecified, without complications Status: Acute Assessment and Plan: status post ileostomy Subjective Date/time seen: 03/23/22 11:45 no new complaints. Breathing is much better. Plan for cardioversion today Exam Const: General: cooperative, comfortable, no acute distress, well developed, alert, awake, average body habitus and other ( well-appearing) Nutritional Appearance: average body habitus Orientation/consciousness: patient oriented x3 HENMT: Head: normal to inspection, normocephalic and atraumatic Ears: hearing grossly normal bilaterally Face/Nose/Sinus: normal facial exam Face and sinus: normal facial exam Eyes: General: appearance normal, both eyes and all related structures Pupils: Equal, round and reactive pupils present EOM: EOMs intact bilaterally Neck: Neck: full ROM, no lymphadenopathy and no JVD Thyroid: thyroid normal Lymphatic: no lymphadenopathy noted Resp: Effort & Inspection: normal respiratory effort and able to speak in complete sentences Auscultation: crackles and diminished lung sounds bilateral (base) Cardio: Jugular venous distension: no JVD Rate: regular rate Rhythm: regular rhythm Heart sounds: S1 normal heart sound present and S2 normal heart sound present GI: Inspection: other ( ileostomy in place) : General: Yes deferred Skin: Rashes: no rashes Wounds: no wounds Neuro: General: patient oriented x3, CN's II-XI intact bilaterally and Unable to assess gait Cranial nerves: Yes CN's II-XII intact bilaterally and Yes Equal, round and reactive pupils present Cognition (Neuro): normal cognition Speech: normal speech Gait exam (Neuro): Unable to assess gait Motor exam (neuro): 5/5 motor strength present throughout Sensory Exam: No Sensory deficit (Neuro) Extrem: General: edema Objective Data Vital Signs Vital Signs: Vital Signs - 24 hr 03/22/22 14:00 03/22/22 17:31 03/22/22 12:00 Temperature 97.8 F Pulse Rate 62 62 38 L Respiratory Rate 20 Blood Pressure 114/53 L Pulse Oximetry 93 Oxygen Delivery Oxygen Flow Rate 03/22/22 20:00 03/22/22 21:40 03/23/22 00:00 Temperature 97.0 F L Pulse Rate 67 77 71 Respiratory Rate 16 Blood Pressure 117/62 Pulse Oximetry 93 Oxyge
[2022-03-23] MEDS: EMPAGLIFLOZIN 10 MG TABLET PO (12:42)
[2022-03-23] MEDS: FUROSEMIDE INJ 40 MG/4 ML VIAL IV PUSH ×2 (12:42→17:58)
[2022-03-23] MEDS: POTASSIUM CHLORIDE 20 MEQ PACKET (FOR LIQUID) 40 MEQ PO (12:42)
--- NOTE | 2022-03-23 14:44 | PCCARD ---
Echo cancelled. Pt with previous echo less than a month ago in [facility] office. Ok to put on hold at least until tomorrow after her cardioversion. Spoke with Danna Ghotra. Danilo
--- NOTE | 2022-03-23 16:47 | PM.PNCARD ---
Progress Note: A&P Assessment and Plan (1) Atrial fibrillation: Qualifiers: Atrial fibrillation type: unspecified Qualified Code(s): I48.91 - Unspecified atrial fibrillation Code(s): I48.91 - Unspecified atrial fibrillation Status: Acute Assessment and Plan: Recent onset of new atrial fibrillation in January 2022. heart rate has been controlled but patient has noted increasing FENG recently. Anticoagulated with Eliquis starting around February 26, . on amiodarone Cardioversion scheduled once again in a.m. pending potassium level in a.m. as well. Electrical cardioversion without HANSA guidance as she has been on uninterrupted anticoagulation for nearly 4 weeks. Explained plan of care to the patient and her . All questions answered to their satisfaction. (2) Hypokalemia: Code(s): E87.6 - Hypokalemia Status: Acute Assessment and Plan: Patient severely hypokalemic this morning unable to proceed with cardioversion in the interest of safety and efficacy. Patient verbalized understanding. NPO after midnight this evening for anticipate cardioversion tomorrow morning with Dr. Shetty. Check potassium level this afternoon replete further as warranted to keep potassium around 4.0. (3) Acute diastolic CHF (congestive heart failure): Code(s): I50.31 - Acute diastolic (congestive) heart failure Status: Acute Assessment and Plan: Significant acute diastolic heart failure with moderate bilateral effusions and significant hypoxia. While the atrial fibrillation may be contributing factor, her CHF is out of proportion to her AFib and I suspect a lot of this is due to diastolic heart failure. Diastolic dysfunction has been noted on some of her past echoes. Continue furosemide 40 mg IV push b.i.d. daily BMP Agree with Jardiance for diastolic heart failure Discontinue Celebrex, avoid NSAID in view of her CHF. She agrees. (4) Valvular heart disease: Code(s): I38 - Endocarditis, valve unspecified Status: Acute Assessment and Plan: followed by Dr. Colon for mild to moderate aortic stenosis, mitral regurgitation tricuspid regurgitation. valve disease not severe enough to account for her CHF. Subjective Date/time seen: Date of service: 03/23/22 16:47 Follow-up for AFib, CHF, hypokalemia Patient states she is feeling better less short of breath. Still feels fatigued. Putting a lot of urine. She states she was worried about her potassium being low. Potassium very low 2.7 this morning cardioversion cancelled as a result. Denies chest pain, palpitations or dizziness. Edema resolving. Review of Systems Constitutional: Constitutional: Denies fever(s) Eyes: Eyes: Reports no additional eye complaints ENT: Denies epistaxis Cardiovascular: Cardiovascular: Denies chest pain, Reports pedal edema, Denies lightheadedness, Denies palpitations and Denies dyspnea Respiratory: Respiratory: Denies chest congestion and Denies dyspnea Gastrointestinal: Gastrointestinal: Denies abdominal pain and Denies hematochezia Genitourinary: Genitourinary: Denies hematuria Musculoskeletal: Musculoskeletal: Reports no additional musculoskeletal complaints Integumentary/Breasts: Skin/Breast: Reports system reviewed and no additional complaints, except as docu Neurologic: Reports system reviewed and no additional complaints, except as documented, Denies behavioral changes and Denies confusion Psychiatric: Psychiatric: Denies behavioral changes and Denies confusion Endocrine: Endocrine: Denies palpitations Exam Narrative: Very pleasant female lying supine in bed no apparent distress breathing comfortably speaking full sentences. Const: General: cooperative, healthy appearing and comfortable; No confusion Orientation/consciousness: oriented to person, patient oriented x3 and No confusion HENMT: Mouth: Yes moist mucous me
[2022-03-23 17:17] LABS: Potassium 3.4 mmol/L (3.4-5.0)
[2022-03-23] MEDS: amLODIPine BESYLATE 5 MG TABLET 10 MG PO (17:57)
[2022-03-23 19:54] LABS: Anion Gap 12 mmol/L (8-16); Blood Urea Nitrogen 13 mg/dL (7-17); Calcium 8.3 mg/dL (8.4-10.2); Carbon Dioxide 28 mmol/L (22-30); Chloride 98 mmol/L (98-107); Estimated CRCL calculation 35 ml/min; Estimated Glomerular Filt Rate 47; Glucose 133 mg/dL (65-110); Potassium 3.1 mmol/L (3.4-5.0); Sodium 138 mmol/L (137-145)
[2022-03-24] VITALS (12 sets, daily range): BP systolic 113–120; BP diastolic 59–72; PULSE 65–100; RESP 16–18; TEMP 36.6–37; O2SAT 94–95
[2022-03-24 08:31] LABS: Anion Gap 15 mmol/L (8-16); Blood Urea Nitrogen 11 mg/dL (7-17); Calcium 8.4 mg/dL (8.4-10.2); Carbon Dioxide 28 mmol/L (22-30); Chloride 98 mmol/L (98-107); Estimated CRCL calculation 38 ml/min; Estimated Glomerular Filt Rate 53; Glucose 105 mg/dL (65-110); Magnesium 1.8 mg/dL (1.6-2.3); Potassium 2.8 mmol/L (3.4-5.0); Sodium 141 mmol/L (137-145)
[2022-03-24] MEDS: AMIODARONE HCL 200 MG TABLET PO ×2 (08:53→16:38)
[2022-03-24] MEDS: POTASSIUM CHLORIDE INJ 40 MEQ in SODIUM CHLORIDE 0.9% IV 500 ML 130 MEQ IVPB (08:54)
[2022-03-24] MEDS: POTASSIUM CHLORIDE 20 MEQ PACKET (FOR LIQUID) 40 MEQ PO ×2 (08:54→19:18)
[2022-03-24] MEDS: EMPAGLIFLOZIN 10 MG TABLET PO (08:54)
[2022-03-24] MEDS: APIXABAN 5 MG TABLET PO ×2 (08:54→20:04)
[2022-03-24] MEDS: FUROSEMIDE INJ 40 MG/4 ML VIAL IV PUSH ×2 (08:54→16:38)
[2022-03-24] MEDS: SODIUM CHLORIDE 5% OP SOLN 15 ML BTL 1 DROP RIGHT EYE ×3 (08:55→21:28)
[2022-03-24] MEDS: prednisoLONE ACETATE 1% OPHTH 5 ML 1 DROP RIGHT EYE ×3 (10:19→21:28)
--- NOTE | 2022-03-24 10:49 | PM.IMPN ---
Progress Note: A&P Assessment and Plan (1) Acute congestive heart failure: Qualifiers: Heart failure type: unspecified Qualified Code(s): I50.9 - Heart failure, unspecified Code(s): I50.9 - Heart failure, unspecified Status: Acute Assessment and Plan: continue diuresis. Breathing is better. Oxygen requirements are much lower. appears to be breathing better. (2) Acute respiratory failure with hypoxia: Code(s): J96.01 - Acute respiratory failure with hypoxia Status: Acute Assessment and Plan: likely secondary to above will obtain CT high-resolution of the chest low suspicion of pneumonia. Will DC antibiotics. Respiratory issues are likely related to volume overload and CHF. Complicated by AFib (3) Atrial fibrillation: Qualifiers: Atrial fibrillation type: unspecified Qualified Code(s): I48.91 - Unspecified atrial fibrillation Code(s): I48.91 - Unspecified atrial fibrillation Status: Acute Assessment and Plan: rate controlled on anticoagulation patient was supposed to go for cardioversion but this has been placed on hold because of hypokalemia. Will correct electrolytes. Likely contributing factor to acute CHF. Per Cardiology (4) Lung infiltrate: Code(s): R91.8 - Other nonspecific abnormal finding of lung field Status: Acute Assessment and Plan: not likely having a pneumonia. DC antibiotics (5) Obstructive sleep apnea: Code(s): G47.33 - Obstructive sleep apnea (adult) (pediatric) Status: Chronic Assessment and Plan: continue CPAP at nighttime (6) GERD (gastroesophageal reflux disease): Code(s): K21.9 - Gastro-esophageal reflux disease without esophagitis Status: Chronic Assessment and Plan: no complaints. Monitor (7) Ulcerative colitis: Code(s): K51.90 - Ulcerative colitis, unspecified, without complications Status: Acute Assessment and Plan: patient has ileostomy Subjective Date/time seen: 03/24/22 10:49 Patient reports she is breathing much better. Potassium is still low this morning. Cardioversion placed on hold from what I am told by the patient Exam Const: General: cooperative, comfortable, no acute distress, well developed, alert, awake, average body habitus and other ( well-appearing) Nutritional Appearance: average body habitus Orientation/consciousness: patient oriented x3 HENMT: Head: normal to inspection, normocephalic and atraumatic Ears: hearing grossly normal bilaterally Face/Nose/Sinus: normal facial exam Face and sinus: normal facial exam Eyes: General: appearance normal, both eyes and all related structures Pupils: Equal, round and reactive pupils present EOM: EOMs intact bilaterally Neck: Neck: full ROM, no lymphadenopathy and no JVD Thyroid: thyroid normal Lymphatic: no lymphadenopathy noted Resp: Effort & Inspection: normal respiratory effort and able to speak in complete sentences Auscultation: crackles and diminished lung sounds bilateral (base) Cardio: Jugular venous distension: no JVD Rate: regular rate Rhythm: regular rhythm Heart sounds: S1 normal heart sound present and S2 normal heart sound present GI: Inspection: other ( ileostomy in place) : General: Yes deferred Skin: Rashes: no rashes Wounds: no wounds Neuro: General: patient oriented x3, CN's II-XI intact bilaterally and Unable to assess gait Cranial nerves: Yes CN's II-XII intact bilaterally and Yes Equal, round and reactive pupils present Cognition (Neuro): normal cognition Speech: normal speech Gait exam (Neuro): Unable to assess gait Motor exam (neuro): 5/5 motor strength present throughout Sensory Exam: No Sensory deficit (Neuro) Extrem: General: edema Objective Data Vital Signs Vital Signs: Vital Signs - 24 hr 03/23/22 14:00 03/23/22 12:00 03/23/22 16:00 Temperature 98.4 F Pulse Rate 77 77 82
--- NOTE | 2022-03-24 11:47 | PM.PNCARD ---
Progress Note: A&P Assessment and Plan (1) Atrial fibrillation: Qualifiers: Atrial fibrillation type: unspecified Qualified Code(s): I48.91 - Unspecified atrial fibrillation Code(s): I48.91 - Unspecified atrial fibrillation Status: Acute Assessment and Plan: Recent onset of new atrial fibrillation in January 2022. heart rate has been controlled but patient has noted increasing FENG recently. Anticoagulated with Eliquis starting around February 26, compliant. on amiodarone Given significant hypokalemia, unable to proceed safely with HANSA-guided DCCV. NPO diet canceled for today. Made NPO for tomorrow. Possible DCCV tomorrow if K is WNL. Electrical cardioversion without HANSA guidance as she has been on uninterrupted anticoagulation for nearly 4 weeks. Explained plan of care to the patient and her . All questions answered to their satisfaction. (2) Hypokalemia: Code(s): E87.6 - Hypokalemia Status: Acute Assessment and Plan: Patient severely hypokalemic this morning unable to proceed with cardioversion in the interest of safety and efficacy. Patient verbalized understanding. NPO after midnight this evening for anticipate cardioversion tomorrow morningl. Check potassium level this afternoon replete further as warranted to keep potassium around 4.0. (3) Acute diastolic CHF (congestive heart failure): Code(s): I50.31 - Acute diastolic (congestive) heart failure Status: Acute Assessment and Plan: Continue diuresis. Closely monitor electrolytes during diuresis. Agree with Jardiance for diastolic heart failure Discontinue Celebrex, avoid NSAID in view of her CHF. (4) Valvular heart disease: Code(s): I38 - Endocarditis, valve unspecified Status: Acute Assessment and Plan: followed by Dr. Colon for mild to moderate aortic stenosis, mitral regurgitation tricuspid regurgitation. valve disease not severe enough to account for her CHF. Time Spent With Patient Time with patient: 15 - 25 minutes Subjective Date/time seen: 03/24/22 11:47 Interval history: Reason for visit: Atrial fibrillation, CHF, hypokalemia. Patient with rate controlled AFIB this AM with HR in the 60s. Was supposed to get HANSA guided DCCV this AM, however, K noted to be at 2.8, therefore, we will not be proceeding with HANSA guided DCCV. Patient otherwise denies chest pain, palpitations. Reports improvement in shortness of breath. Oxygen requirements going down. Review of Systems Constitutional: Constitutional: Denies fever(s) ENT: Denies dysphagia and Denies epistaxis Cardiovascular: Cardiovascular: Denies chest pain, Denies pedal edema, Denies lightheadedness, Denies palpitations and Denies dyspnea Respiratory: Respiratory: Reports dyspnea Gastrointestinal: Gastrointestinal: Denies abdominal pain, Denies nausea and Denies vomiting Musculoskeletal: Musculoskeletal: Reports no additional musculoskeletal complaints Integumentary/Breasts: Skin/Breast: Reports system reviewed and no additional complaints, except as docu Neurologic: Reports system reviewed and no additional complaints, except as documented, Denies behavioral changes and Denies confusion Hematologic/Lymphatic: Hematologic/Lymphatic: Denies easy bleeding and Denies easy bruising Objective Data Vital Signs Vital Signs: Vital Signs - 24 hr 03/23/22 14:00 03/23/22 12:00 03/23/22 16:00 Temperature 36.9 C Pulse Rate 77 77 82 Respiratory Rate 20 Blood Pressure 111/55 L Pulse Oximetry 93 Oxygen Delivery Oxygen Flow Rate 03/23/22 20:00 03/23/22 22:00 03/24/22 00:00 Temperature 36.4 C L Pulse Rate 76 79 65 Respiratory Rate 17 Blood Pressure 120/57 L Pulse Oximetry 90 Oxygen Delivery Oxygen Flow Rate 03/24/22 04:00 03/24/22 06:00 03/24/22 08:53 Temperature 36.6 C Pulse Rate 78 73 76 Respiratory Rate 18 Blood Pressure 120/7
[2022-03-24] MEDS: amLODIPine BESYLATE 5 MG TABLET 10 MG PO (16:38)
[2022-03-24 17:46] LABS: Potassium 3.6 mmol/L (3.4-5.0)
--- NOTE | 2022-03-24 19:09 | PC.NURSE ---
hold all medication for possible cardioversion tomorrow 03/25/22, except eliquis and amiodarone per
[2022-03-25] VITALS (22 sets, daily range): BP systolic 109–146; BP diastolic 49–80; PULSE 71–97; RESP 13–19; TEMP 36.2–37.6; O2SAT 91–98
[2022-03-25] MEDS: prednisoLONE ACETATE 1% OPHTH 5 ML 1 DROP RIGHT EYE ×12 (00:44→23:32)
--- NOTE | 2022-03-25 01:00 | PC.NURSE ---
pt c/o ankle pt, requiring Tylenol 650 mg PO prn q6hrs for pain
[2022-03-25] MEDS: SODIUM CHLORIDE 5% OP SOLN 15 ML BTL 1 DROP RIGHT EYE ×12 (01:44→22:08)
[2022-03-25] MEDS: ACETAMINOPHEN 325 MG TABLET 650 MG PO ×3 (01:58→22:08)
[2022-03-25] MEDS: AMIODARONE HCL 200 MG TABLET PO ×2 (07:51→17:28)
[2022-03-25] MEDS: APIXABAN 5 MG TABLET PO ×2 (07:52→20:04)
[2022-03-25 10:10] LABS: Basophils Absolute Auto 0.1 K/mm3 (0.0-0.1); Basophils Percent Auto 0.8 % (0.2-1.2); Eosinophils Absolute Auto 0.2 K/mm3 (0-0.3); Eosinophils Percent Auto 2.4 % (0-4.4); Hematocrit 39.3 % (37.0-47.0); Immature Granulocyte Absolute 0.01 K/mm3 (0.00-0.031); Immature Granulocyte Percent A 0.1 % (0-0.5); Lymphocytes Percent Auto 13.8 % (18.3-44.2); Mean Corpuscular HGB Conc 33.1 g/dl (32-36); Mean Corpuscular Hemoglobin 29.7 pg (26-34); Mean Corpuscular Volume 89.7 fl (80-100); Mean Platelet Volume 10.5 fl (7.4-10.4); Monocytes Absolute Auto 0.9 K/mm3 (0.1-0.6); Monocytes Percent Auto 11.7 % (2.6-8.5); Neutrophils Absolute Auto 5.7 K/mm3 (1.3-6.7); Neutrophils Percent Auto 71.2 % (45.5-73.1); Platelet Count Result 246 k/mm3 (150-375); Red Blood Count 4.38 M/mm3 (4.2-5.4); Red Cell Distribution Width 14.7 % (11.5-14.5)
[2022-03-25 10:21] LABS: Albumin Level 4.3 g/dL (3.5-5.1); Anion Gap 12 mmol/L (8-16); Blood Urea Nitrogen 13 mg/dL (7-17); Calcium 8.6 mg/dL (8.4-10.2); Carbon Dioxide 27 mmol/L (22-30); Chloride 100 mmol/L (98-107); Estimated CRCL calculation 42 ml/min; Estimated Glomerular Filt Rate 60; Glucose 104 mg/dL (65-110); Magnesium 1.9 mg/dL (1.6-2.3); Potassium 3.5 mmol/L (3.4-5.0); Sodium 139 mmol/L (137-145)
--- NOTE | 2022-03-25 10:44 | ECG_ITS ---
Measurements Intervals [place] Rate: 71 P: MI: 0 QRS: -16 QRSD: 98 T: 46 QT: 416 QTc: 454 Interpretive Statements ATRIAL FIBRILLATION NONSPECIFIC ST AND T-WAVE ABNORMALITY ABNORMAL RHYTHM ECG COMPARED TO ECG 03/21/2022 20:44:37 NO SIGNIFICANT CHANGES Electronically Signed On 03-25-2022 13:15:07 CDT by Carmel Shetty M.D.
--- NOTE | 2022-03-25 10:44 | ECG_ITS ---
Measurements Intervals [place] Rate: 76 P: 42 NH: 250 QRS: -26 QRSD: 103 T: 60 QT: 432 QTc: 488 Interpretive Statements SINUS RHYTHM WITH FIRST DEGREE AV BLOCK COMPARED TO ECG 03/25/2022 10:51:14 SINUS RHYTHM NOW PRESENT FIRST DEGREE AV BLOCK NOW PRESENT Electronically Signed On 03-25-2022 13:17:02 CDT by Carmel Shetty M.D.
--- NOTE | 2022-03-25 10:45 | WPDMODSED ---
Moderate Sedation Note-Pt Data Patient Data Diagnosis: Atrial fibrillation Present Complaint: Fatigue Procedure to be performed/Plan: Elective electrical cardioversion Allergies Allergy/AdvReac Type Severity Reaction Status Date / Time nitrofurantoin Allergy Severe GENERALIZED Verified 02/17/22 09:48 ENTIRE BODY TINGLING, PAIN,UNABLE TO WALK Penicillins Allergy Unknown rash Verified 02/17/22 09:48 Home Medications Medication Instructions Recorded Confirmed Type celecoxib 200 mg capsule 200 mg PO QAM 06/28/19 03/22/22 History prednisolone acetate 1 % eye See Rx Instructions .Route .COMPLEX 12/25/20 03/22/22 History drops,suspension (Pred Forte) amiodarone 200 mg tablet 200 mg PO BID 03/22/22 03/22/22 History amlodipine 10 mg tablet 10 mg PO QPM 03/22/22 03/22/22 History apixaban 5 mg tablet (Eliquis) 5 mg PO BID 03/22/22 03/22/22 History potassium chloride 20 mEq 20 meq PO DAILY 03/22/22 03/22/22 History tablet,extended release(part/cryst) sodium chloride 5 % eye drops See Rx Instructions .Route .COMPLEX 03/22/22 03/22/22 History (Cole 128) Current Medications: Active Medications Acetaminophen (Acetaminophen 325 Mg Tablet) 650 mg PO Q6H PRN PRN Reason: Moderate Pain (4-6) Last Admin: 03/25/22 01:58 Dose: 650 mg Amiodarone HCl (Amiodarone Hcl 200 Mg Tablet) 200 mg PO BIDWM [facility] Last Admin: 03/25/22 07:51 Dose: 200 mg Amlodipine Besylate (Amlodipine Besylate 5 Mg Tablet) 10 mg PO QPM DARIN Last Admin: 03/24/22 16:38 Dose: 10 mg Apixaban (Apixaban 5 Mg Tablet) 5 mg PO Q12HR DARIN Last Admin: 03/25/22 07:52 Dose: 5 mg Empagliflozin (Empagliflozin 10 Mg Tablet) 10 mg PO DAILY [facility] Last Admin: 03/25/22 07:32 Dose: Not Given Furosemide (Furosemide Inj 40 Mg/4 Ml Vial) 40 mg IV PUSH BID [facility] Last Admin: 03/25/22 07:32 Dose: Not Given Potassium Chloride (Potassium Chloride 20 Meq Packet (For Liquid)) 40 meq PO DAILY [facility] Last Admin: 03/25/22 07:33 Dose: Not Given Prednisolone Acetate (Prednisolone Acetate 1% Ophth 5 Ml) 1 drop RIGHT EYE Q2H DARIN Last Admin: 03/25/22 11:13 Dose: Not Given Sodium Chloride (Sodium Chloride 5% Op Soln 15 Ml Btl) 1 drop RIGHT EYE Q2H DARIN Last Admin: 03/25/22 10:32 Dose: 1 drop Sedation/Anesthesia: No previous sedation/anesthesia problems (including family history). [facility] Past Medical History Medical History Acute diastolic CHF (congestive heart failure) Aortic stenosis Arthritis pseudogout History of gastroesophageal reflux (GERD) Hypercholesteremia Hypertension Obesity 02/06/22 BMI 29 Obstructive sleep apnea compliant with cpap Pulmonary hypertension Ulcerative colitis s/p ileostomy Valvular heart disease Surgical History Surgical History H/O hemorrhoidectomy H/O ileostomy History of cholecystectomy History of cornea transplant History of left knee replacement Family History Family History Father Family history of respiratory disorder, Onset Age: 63 Liver disease Sibling Diabetes mellitus COPD (chronic obstructive pulmonary disease) Hypertension Sibling Crohn's disease Diabetes mellitus Other Family history of malignant neoplasm of breast Family history of malignant neoplasm of cervix Social History Social History Smoking status: Never smoker Second hand tobacco smoke exposure: No Alcohol intake: never Substance use: never Substance use type: does not use Additional living arrangements comments: lives with spouse Gender identity (if verbalized by the patient): Female Spiritual care concerns: No Has the Lack of Transportation Kept You From Medical Appointments or From Getting Medications?: No Within the Past 12 Months, Were You
--- NOTE | 2022-03-25 11:17 | WPDCARDVER ---
Cardioversion Cardioversion Date of procedure: 03/25/22 Procedure: Elective electrical cardioversion Pre-op diagnosis: Atrial fibrillation Post-op diagnosis: Same Indications: Atrial fibrillation Description of procedure: Brief history present illness: Patient is a pleasant 81-year-old female with refractory symptomatic atrial fibrillation with acute heart failure with preserved ejection fraction referred for elective electrical cardioversion in attempt to restore sinus rhythm. Cardioversion had been initially delayed this hospitalization due to recurrent and refractory hypokalemia secondary to diuresis. Procedure in detail: After verbal and written informed consent was obtained the patient risks, benefits, and alternatives explained in detail the patient agreed to proceed with the plan of care as outlined above. Patient was evaluated at bedside in the [facility] procedure room. On examination, neck was supple with normal range of motion, no restrictions to opening of the oral cavity, jaw angle and posterior hypopharynx was clear. Lungs were clear to auscultation. Patient was placed in appropriate 30 to 45 degree angle in a supine position. Patient was monitored throughout the study with telemetry, oxygen saturation, end-tidal CO2 monitoring, blood pressure, heart rate, and respirations. Anterior and posterior defibrillator pads placed in the appropriate positions. After confirmation of adequate sedation electrical cardioversion was carried out without complication. Patient tolerated the procedure well without difficulty. Sedation: Moderate Sedation/Anesthesia administration: Patient denied previous intolerance or complications with anesthesia/sedation. Please see sedation note for documentation of the pre-procedure physical examination. A total of 3.5mg intravenous Versed and a total of 100mcg intravenous Fentanyl in multiple divided doses was utilized for moderate sedation. Sedation start time was 1056 and end time was 1114 for a total of 18 minutes [id number] intra-procedure time. Sedation was administered by a qualified observer Tawnya Lopez RN under my supervision with intra-procedure [id number] observation and management throughout the entirety of the procedure. There were no other issues or complications and patient tolerated the procedure well and sedation protocol well and I was present for the entirety. Findings: Elective electrical cardioversion: After confirmation of adequate sedation and persistence of atrial fibrillation, 200 joules synched biphasic energy x1 was delivered with immediate mandaen of sinus rhythm. Twelve lead EKG was obtained postprocedure confirming sinus rhythm. Complications: None Conclusion: Successful mandaen of sinus rhythm with 200 joules synched biphasic energy x1. Recommendations: Continue systemic anticoagulation without interruption unless otherwise advised and in particular for the next 30 days post cardioversion.
--- NOTE | 2022-03-25 11:27 | PM.PNCARD ---
Progress Note: A&P Assessment and Plan (1) Atrial fibrillation: Qualifiers: Atrial fibrillation type: unspecified Qualified Code(s): I48.91 - Unspecified atrial fibrillation Code(s): I48.91 - Unspecified atrial fibrillation Status: Acute Assessment and Plan: Recent onset of new atrial fibrillation in January 2022. heart rate has been controlled but patient has noted increasing FENG recently. Anticoagulated with Eliquis starting around February 26. on amiodarone Potassium is pain this morning return suitable for cardioversion at 3.5. Will give an additional 40 mEq p.o. post cardioversion. NPO no interruption in anticoagulation. Patient agrees with plan of care. Plan for cardioversion. (2) Hypokalemia: Code(s): E87.6 - Hypokalemia Status: Acute Assessment and Plan: Patient severely hypokalemic delaying cardioversion in the interest of safety and efficacy. Improved this morning after delay with return of labs at 3.5. Suitable for cardioversion as above. (3) Acute diastolic CHF (congestive heart failure): Code(s): I50.31 - Acute diastolic (congestive) heart failure Status: Acute Assessment and Plan: Continue diuresis. Closely monitor electrolytes during diuresis. Agree with Jardiance for diastolic heart failure Discontinued Celebrex, avoid NSAID in view of her CHF. Transition to oral Lasix 40 mg p.o. twice daily with potassium chloride 40 mEq p.o. daily. Anticipate will be able to reduce Lasix to 40 mg p.o. daily. (4) Aortic stenosis: Code(s): I35.0 - Nonrheumatic aortic (valve) stenosis Status: Acute Assessment and Plan: Mild to moderate aortic stenosis, mitral regurgitation tricuspid regurgitation. valve disease not severe enough to account for her CHF. Subjective Date/time seen: Date of service: 03/25/22 10:25 Interval history: Reason for visit: Atrial fibrillation, CHF, hypokalemia. Patient seen early this morning no new complaints. Remains NPO. Potassium was pending this morning later returned at 3.5 suitable for cardioversion. No other complaints. No interruption in anticoagulation. Review of Systems Constitutional: Constitutional: Denies fever(s) Eyes: Eyes: Reports no additional eye complaints ENT: Denies dysphagia and Denies epistaxis Cardiovascular: Cardiovascular: Denies chest pain, Denies pedal edema, Denies lightheadedness, Denies palpitations and Reports dyspnea Respiratory: Respiratory: Denies chest congestion and Reports dyspnea Gastrointestinal: Gastrointestinal: Denies abdominal pain, Denies hematochezia, Denies dysphagia, Denies nausea and Denies vomiting Genitourinary: Genitourinary: Denies hematuria Musculoskeletal: Musculoskeletal: Reports no additional musculoskeletal complaints Integumentary/Breasts: Skin/Breast: Reports system reviewed and no additional complaints, except as docu Neurologic: Reports system reviewed and no additional complaints, except as documented, Denies behavioral changes and Denies confusion Psychiatric: Psychiatric: Denies behavioral changes and Denies confusion Endocrine: Endocrine: Denies palpitations Hematologic/Lymphatic: Hematologic/Lymphatic: Denies easy bleeding and Denies easy bruising Exam Narrative: Very pleasant female lying supine in bed no apparent distress breathing comfortably speaking full sentences. Const: General: cooperative, healthy appearing and comfortable; No confusion Orientation/consciousness: oriented to person, patient oriented x3 and No confusion HENMT: Mouth: Yes moist mucous membranes Eyes: EOM: EOMs intact bilaterally Other: hard of hearing Neck: Neck: supple and no JVD ( does have jugular venous pulsation) Thyroid: thyroid normal Carotids: no bruits Resp: Effort & Inspection: normal respiratory effort Auscultation: rales and diminished lung sounds Other: diminished breath sounds in ba
[2022-03-25] MEDS: POTASSIUM CHLORIDE 20 MEQ PACKET (FOR LIQUID) 40 MEQ PO (12:20)
--- NOTE | 2022-03-25 14:45 | PM.IMPN ---
Progress Note: A&P Assessment and Plan (1) Acute congestive heart failure: Qualifiers: Heart failure type: unspecified Qualified Code(s): I50.9 - Heart failure, unspecified Code(s): I50.9 - Heart failure, unspecified Status: Acute Assessment and Plan: CXR consistent with pulmonary edema. BNP 1960. She was started on IV Lasix. Not on diuretics at home. Intake/output not accurate but clinically much better. Weaned to room air. Change to oral Lasix. (2) Acute respiratory failure with hypoxia: Code(s): J96.01 - Acute respiratory failure with hypoxia Status: Acute Assessment and Plan: Secondary to acute CHF and AFib/RVR. CT chest showing mild pulmonary edema and pleural effusions. No evidence of PNA. Abx stopped. Weaned to room air. Follow. (3) Atrial fibrillation: Qualifiers: Atrial fibrillation type: unspecified Qualified Code(s): I48.91 - Unspecified atrial fibrillation Code(s): I48.91 - Unspecified atrial fibrillation Status: Acute Assessment and Plan: Patient found to have AFib last month. She was rate controlled adn started on anticoagulation. Her electrolytes were corrected. She underwent cardioversion earlier today and tolerated the procedure well. It was felt that the AFib was a contributing factor to her acute CHF. Appreciate Cardiology input (4) Obstructive sleep apnea: Code(s): G47.33 - Obstructive sleep apnea (adult) (pediatric) Status: Chronic Assessment and Plan: Stable. She is compliant with CPAP. Continue CPAP at nighttime (5) GERD (gastroesophageal reflux disease): Code(s): K21.9 - Gastro-esophageal reflux disease without esophagitis Status: Chronic Assessment and Plan: Stable. No complaints. Contnue to monitor (6) Ulcerative colitis: Code(s): K51.90 - Ulcerative colitis, unspecified, without complications Status: Acute Assessment and Plan: Stable. Patient has ileostomy Plan Rt Ankle pain - acute but not uncommon for patient. she feels related to pseudogout. Treat symptomatically. PT/OT. Diaphoresis - no fevers. doubt related to Tylenol. She is off abx now. Follow for recurrence. Subjective Date/time seen: 03/25/22 14:45 Interval history: 81yo female with CHF, aortic stenosis, HTN, DULCE and ulcerative colitis here for shortness of breath. She was also recently diagnosed with AFib Assuming care. Chart reviewed. Patient has come off oxygen. She feels slightly shaky since being back from the cardioversion. She is walking to the bedside commode. She denies any chest pain or shortness of breath. She also having difficulty walking because she has right ankle pain that she is related to pseudogout. She gets this often used taking indomethacin as needed. She did take Tylenol last night. She did have diaphoresis but then was able to sleep. The pain was improved with the Tylenol. She denies fevers or chills Exam Narrative: AF 97.1 115/52 82 18 95% ra Gen - NARD Chest - CTA bilaterally, nml RR CV - RRR S1/S2. Tele showing normal sinus rhythm Abd - Soft, NT/ND, Positive BS. ileostomy in the RLQ with dark liquid stool in bag Ext - No pedal edema. tenderness to passive ROM to the right ankle but no warmth or edema. Psych - Nml mood and affect Skin - Warm and dry Objective Data Vital Signs Vital Signs: Vital Signs - 24 hr 03/24/22 16:00 03/24/22 16:38 03/24/22 20:00 Temperature Pulse Rate 80 80 Respiratory Rate 16 Blood Pressure Pulse Oximetry 95 Oxygen Delivery Nasal Cannula Oxygen Flow Rate 5 03/24/22 20:00 03/24/22 22:00 03/25/22 00:00 Temperature 98.6 F Pulse Rate 69 80 72 Respiratory Rate 17 Blood Pressure 113/59 L Pulse Oximetry 95 Oxygen Delivery Oxygen Flow Rate 03/25/22 04:00 03/25/22 07:51 03/25/22 07:51 Temperature Pulse Rate 71 76 Respiratory Rate Blood Pres
--- NOTE | 2022-03-25 16:28 | PCPTNOTE ---
Attempted PT evaluation, pt refused stating I don't need physical therapy. I just need the pain to be controlled. RN aware. Will Follow.
[2022-03-25] MEDS: amLODIPine BESYLATE 5 MG TABLET 10 MG PO (17:27)
[2022-03-25] MEDS: FUROSEMIDE 40 MG TABLET PO (17:27)
--- NOTE | 2022-03-25 23:28 | PC.NURSE ---
2LNC AT HS WHILE SLEEPING DECREASED TO 88% RA, CURRENTLY 96@ 2 L NC
[2022-03-26] VITALS (11 sets, daily range): BP systolic 118–122; BP diastolic 54–62; PULSE 81–96; RESP 17–18; TEMP 36.8–37.7; O2SAT 92–96
[2022-03-26] MEDS: SODIUM CHLORIDE 5% OP SOLN 15 ML BTL 1 DROP RIGHT EYE ×11 (00:08→20:21)
[2022-03-26] MEDS: prednisoLONE ACETATE 1% OPHTH 5 ML 1 DROP RIGHT EYE ×10 (01:47→20:21)
[2022-03-26 06:42] LABS: Anion Gap 11 mmol/L (8-16); Blood Urea Nitrogen 17 mg/dL (7-17); Calcium 8.3 mg/dL (8.4-10.2); Carbon Dioxide 24 mmol/L (22-30); Chloride 100 mmol/L (98-107); Estimated CRCL calculation 38 ml/min; Estimated Glomerular Filt Rate 53; Glucose 103 mg/dL (65-110); Magnesium 1.9 mg/dL (1.6-2.3); Potassium 3.6 mmol/L (3.4-5.0); Sodium 135 mmol/L (137-145)
[2022-03-26] MEDS: FUROSEMIDE 40 MG TABLET PO ×2 (08:01→17:34)
[2022-03-26] MEDS: POTASSIUM CHLORIDE 20 MEQ PACKET (FOR LIQUID) 40 MEQ PO (08:01)
[2022-03-26] MEDS: AMIODARONE HCL 200 MG TABLET PO ×2 (08:01→17:34)
[2022-03-26] MEDS: EMPAGLIFLOZIN 10 MG TABLET PO (08:01)
[2022-03-26] MEDS: APIXABAN 5 MG TABLET PO ×2 (08:01→20:21)
--- NOTE | 2022-03-26 08:27 | PM.PNCARD ---
Progress Note: A&P Assessment and Plan (1) Atrial fibrillation: Qualifiers: Atrial fibrillation type: unspecified Qualified Code(s): I48.91 - Unspecified atrial fibrillation Code(s): I48.91 - Unspecified atrial fibrillation Status: Acute Assessment and Plan: Recent onset of new atrial fibrillation in January 2022. heart rate has been controlled but patient has noted increasing FENG recently. Anticoagulated with Eliquis starting around February 26. On amiodarone. Reduce to maintenance dose of 200mg daily on discharge S/p DCCV yesterday with orthodoxy of NSR. (2) Hypokalemia: Code(s): E87.6 - Hypokalemia Status: Acute Assessment and Plan: Improved with supplementation. K+ 3.6 today. (3) Acute diastolic CHF (congestive heart failure): Code(s): I50.31 - Acute diastolic (congestive) heart failure Status: Acute Assessment and Plan: Improved with IV diuresis. Transition to oral Lasix 40 mg p.o. twice daily with potassium chloride 40 mEq p.o. daily. Anticipate will be able to reduce Lasix to 40 mg p.o. daily at discharge. Agree with Jardiance for diastolic heart failure Will add spironolactone 12.5mg daily as well Discontinued Celebrex, avoid NSAID in view of her CHF. (4) Aortic stenosis: Code(s): I35.0 - Nonrheumatic aortic (valve) stenosis Status: Acute Assessment and Plan: Mild to moderate aortic stenosis, mitral regurgitation tricuspid regurgitation. valve disease not severe enough to account for her CHF. Subjective Date/time seen: 03/26/22 08:27 Cardiology follow up for atrial fibrillation, CHF Complaining of bilateral ankle pain since celebrex has been discontinued. O2 sats dropped to high 70's when she was working with therapy (her O2 had been removed), but she states she did not feel short of breath. States she was holding her breath because her ankles were hurting so badly. Denies any palpitations, chest pain, or swelling. Review of Systems Constitutional: Constitutional: Denies fever(s) Eyes: Eyes: Reports no additional eye complaints ENT: Denies dysphagia and Denies epistaxis Cardiovascular: Cardiovascular: Denies chest pain, Denies pedal edema, Denies lightheadedness, Denies palpitations and Reports dyspnea Respiratory: Respiratory: Denies chest congestion and Reports dyspnea Gastrointestinal: Gastrointestinal: Denies abdominal pain, Denies hematochezia, Denies dysphagia, Denies nausea and Denies vomiting Genitourinary: Genitourinary: Denies hematuria Musculoskeletal: Musculoskeletal: Reports no additional musculoskeletal complaints Integumentary/Breasts: Skin/Breast: Reports system reviewed and no additional complaints, except as docu Neurologic: Reports system reviewed and no additional complaints, except as documented, Denies behavioral changes and Denies confusion Psychiatric: Psychiatric: Denies behavioral changes and Denies confusion Endocrine: Endocrine: Denies palpitations Hematologic/Lymphatic: Hematologic/Lymphatic: Denies easy bleeding and Denies easy bruising Exam Narrative: Very pleasant female lying supine in bed no apparent distress breathing comfortably speaking full sentences. Const: General: cooperative, healthy appearing and comfortable; No confusion Orientation/consciousness: oriented to person, patient oriented x3 and No confusion HENMT: Mouth: Yes moist mucous membranes Eyes: EOM: EOMs intact bilaterally Other: hard of hearing Neck: Neck: supple and no JVD ( does have jugular venous pulsation) Thyroid: thyroid normal Carotids: no bruits Resp: Effort & Inspection: normal respiratory effort Auscultation: crackles (fine crackles bilateral bases ) and diminished lung sounds Cardio: Rate: regular rate Rhythm: regular rhythm Heart sounds: Murmur heart sound present GI: Inspection: normal to inspection Neuro: General: oriented to person, patie
--- NOTE | 2022-03-26 14:40 | PM.IMPN ---
Progress Note: A&P Assessment and Plan (1) Acute congestive heart failure: Qualifiers: Heart failure type: unspecified Qualified Code(s): I50.9 - Heart failure, unspecified Code(s): I50.9 - Heart failure, unspecified Status: Acute Assessment and Plan: CXR consistent with pulmonary edema. BNP 1960. Patient with acute diastolic CHF. She was started on IV Lasix. Not on diuretics at home. Intake/output not accurate but clinically much better. Weaned to room air. Changed to oral Lasix. Continue Empag; Spironolactone added. Appreciate Cardiology input. (2) Acute respiratory failure with hypoxia: Code(s): J96.01 - Acute respiratory failure with hypoxia Status: Acute Assessment and Plan: Secondary to acute CHF and AFib/RVR. CT chest showing mild pulmonary edema and pleural effusions. No evidence of PNA. Abx stopped. Weaned to room air. Follow. (3) Atrial fibrillation: Qualifiers: Atrial fibrillation type: unspecified Qualified Code(s): I48.91 - Unspecified atrial fibrillation Code(s): I48.91 - Unspecified atrial fibrillation Status: Acute Assessment and Plan: Patient found to have AFib last month. She was rate controlled and started on anticoagulation. Her electrolytes were corrected. She underwent cardioversion 03/25 and tolerated the procedure well. It was felt that the AFib was a contributing factor to her acute CHF. Appreciate Cardiology input (4) Obstructive sleep apnea: Code(s): G47.33 - Obstructive sleep apnea (adult) (pediatric) Status: Chronic Assessment and Plan: Stable. She is compliant with CPAP. Continue CPAP at nighttime (5) GERD (gastroesophageal reflux disease): Code(s): K21.9 - Gastro-esophageal reflux disease without esophagitis Status: Chronic Assessment and Plan: Stable. No complaints. Contnue to monitor (6) Ulcerative colitis: Code(s): K51.90 - Ulcerative colitis, unspecified, without complications Status: Acute Assessment and Plan: Stable. Patient has ileostomy Plan Rt Ankle pain - acute but not uncommon for patient and felt related to pseudogout. PT/OT. Unable to take NSAIDS or colchicine. Start prednisone. Diaphoresis - no fevers. Did recur after taking Tylenol. She is off abx now. Follow Subjective Date/time seen: 03/26/22 14:40 Interval history: 81yo female with CHF, aortic stenosis, HTN, DULCE and ulcerative colitis here for shortness of breath. She was also recently diagnosed with AFib Patient still complain of arthritis mostly in her ankles. This has worsened. It is making her difficult to walk. She is using walker. She states that she can only use Celebrex which seems have the best efficacy. She lives at home with her . She did become diaphoretic after taking Tylenol last night again. Exam Narrative: AF 99.0 122/62 89 18 92% ra Gen - NARD Chest - CTA bilaterally, nml RR CV - RRR S1/S2 with 2/6 systolic murmur upper sternal border. Tele showing normal sinus rhythm Abd - Soft, NT/ND, Positive BS. ileostomy in the RLQ with brown stool in bag Ext - No pedal edema. tenderness to passive ROM to the right ankle and is warm to touch; no erythema or edema. Psych - Nml mood and affect Skin - Warm and dry Objective Data Vital Signs Vital Signs: Vital Signs - 24 hr 03/25/22 16:00 03/25/22 17:28 03/25/22 20:00 Temperature Pulse Rate 94 92 Respiratory Rate Blood Pressure Pulse Oximetry 96 Oxygen Delivery Room Air Oxygen Flow Rate 03/25/22 22:08 03/25/22 23:28 03/25/22 20:00 Temperature 99.6 F Pulse Rate 97 Respiratory Rate Blood Pressure Pulse Oximetry 96 Oxygen Delivery Oxygen Flow Rate 03/26/22 00:00 03/25/22 22:10 03/26/22 04:00 Temperature 99.6 F Pulse Rate 87 96 81 Respiratory Rate 19 Blood Pressure 121/60 Pulse Oximetry 91 Oxygen Delivery Oxy
[2022-03-26] MEDS: amLODIPine BESYLATE 5 MG TABLET 10 MG PO (17:36)
[2022-03-27] VITALS (9 sets, daily range): BP systolic 114–117; BP diastolic 60–65; PULSE 81–103; RESP 18–20; TEMP 36.7–37.2; O2SAT 94
[2022-03-27 07:26] LABS: Anion Gap 14 mmol/L (8-16); Blood Urea Nitrogen 15 mg/dL (7-17); Calcium 8.7 mg/dL (8.4-10.2); Carbon Dioxide 25 mmol/L (22-30); Chloride 94 mmol/L (98-107); Estimated CRCL calculation 38 ml/min; Estimated Glomerular Filt Rate 53; Glucose 117 mg/dL (65-110); Potassium 3.2 mmol/L (3.4-5.0); Sodium 133 mmol/L (137-145)
[2022-03-27] MEDS: prednisoLONE ACETATE 1% OPHTH 5 ML 1 DROP RIGHT EYE ×5 (08:33→16:05)
[2022-03-27] MEDS: SODIUM CHLORIDE 5% OP SOLN 15 ML BTL 1 DROP RIGHT EYE ×6 (08:34→17:27)
[2022-03-27] MEDS: AMIODARONE HCL 200 MG TABLET PO ×2 (08:35→17:27)
[2022-03-27] MEDS: APIXABAN 5 MG TABLET PO (08:39)
[2022-03-27] MEDS: EMPAGLIFLOZIN 10 MG TABLET PO (08:39)
[2022-03-27] MEDS: SPIRONOLACTONE 12.5 MG TABLET PO (08:40)
--- NOTE | 2022-03-27 08:44 | PC.NURSE ---
Addendum entered by Adry Chicas RN 03/27/22 13:41: Pt. has been administering eye drops themselves during this current hospital admission. Eye drops now with RN in medication cart. Original Note: At 0844 this AM, primary nurse came to bedside for first rounds and noticed pts eye drops on their counter. I notified her that all medications need to stay with the RN. Pt. refused. Pt. also stated that their brought up 650mg of tylenol during shift change. Pt. took the medication without notifying staff. Pt. educated on safe medication administration practices and to notify RN of any pain they are experiencing.
--- NOTE | 2022-03-27 11:54 | PCPTNOTE ---
Patient declined PT stating her knees are hurting. Patient states she is not taking her arthritis medication and she has pain in all of her joints. PT will continue to follow per plan of care.
[2022-03-27] MEDS: ACETAMINOPHEN 500 MG TABLET 1000 MG PO ×2 (12:44→17:26)
--- NOTE | 2022-03-27 13:30 | PC.NURSE ---
After continued education on medication safety. Pt. now agreeable for RN to keep eye drops in locked medication cart.
--- NOTE | 2022-03-27 17:10 | PM.DS ---
DS: Admitting Diagnosis Discharge Date 03/27/22 Admitting Diagnosis Shortness of breath DS: Discharge Diagnosis Discharge Diagnosis (1) Acute congestive heart failure: Qualifiers: Heart failure type: unspecified Qualified Code(s): I50.9 - Heart failure, unspecified Code(s): I50.9 - Heart failure, unspecified Status: Acute (2) Acute respiratory failure with hypoxia: Code(s): J96.01 - Acute respiratory failure with hypoxia Status: Acute (3) Atrial fibrillation: Qualifiers: Atrial fibrillation type: unspecified Qualified Code(s): I48.91 - Unspecified atrial fibrillation Code(s): I48.91 - Unspecified atrial fibrillation Status: Acute (4) Obstructive sleep apnea: Code(s): G47.33 - Obstructive sleep apnea (adult) (pediatric) Status: Chronic (5) GERD (gastroesophageal reflux disease): Code(s): K21.9 - Gastro-esophageal reflux disease without esophagitis Status: Chronic (6) Ulcerative colitis: Code(s): K51.90 - Ulcerative colitis, unspecified, without complications Status: Acute DS: Summary Hospital Course Reason for hospitalization: 81yo female with CHF, aortic stenosis, HTN, DULCE and ulcerative colitis here for shortness of breath. She was also recently diagnosed with AFib. Please see H&P for details Hospital Course: Patient presents with complaints of shortness of breath. CXR was consistent with pulmonary edema. BNP 1960. Patient with acute diastolic CHF. She was started on IV Lasix. She is not on diuretics at home. Clinically much better. Able to be weaned to room air. Able to be changed to oral Lasix. Empaglifloxin and Spironolactone added. She did have acute respiratory failure with hypoxia secondary to acute CHF and AFib/RVR. CT chest showing mild pulmonary edema and pleural effusions. No evidence of PNA. Abx were stopped. Patient found to have AFib last month. She was rate controlled and started on anticoagulation at that time. There was a plan for cardioversion as outpatient. While here, she underwent cardioversion 03/25/22 and tolerated the procedure well. It was felt that the AFib was a contributing factor to her acute CHF. Appreciate Cardiology input. Her discharge was held up due to the acute onset of rt ankle pain. No trauma. This is not uncommon for patient tht she felt related to pseudogout. PT/OT ordered. Unable to take NSAIDS or colchicine. Prednisone ordered but she refused. We shceduled Tylenol which seem to help. Right ankle pain much better but now right knee worse. feels knee looks better now; sleeve in place. She was able to ambulate in the room with a walker. She feels she is ready for discharge. Offered SNF but she refused. Plan for outpatient therapy. She overall did well and was able to be discharged home on 03/27/22 Status at Discharge Cognitive/behavioral status at discharge: Stable Time Spent with Patient Time attestation: Total time spent providing and/or coordinating discharge services: 35 minutes Time spent: Greater than 30 minutes Exam Narrative: AF 98.1 117/65 84 20 94% ra Gen - NARD Chest - CTA bilaterally, nml RR CV - RRR S1/S2. Tele showing normal sinus rhythm Abd - Soft, NT/ND, Positive BS. ileostomy in the RLQ with brown stool in bag Ext - No pedal edema. Decreased tenderness to the right ankle. REight knee sleeve in place. No erythema or warmth. Psych - Nml mood and affect Skin - Warm and dry DS: Data Data Completed and Pending Labs on day of discharge: Labs from last 24 hours 03/27/22 07:10 Sodium 133 L Potassium 3.2 L Chloride 94 L Carbon Dioxide 25 Anion Gap 14 BUN 15 Creatinine 1.00 Estim Creat Clear Calc 38 Estimated GFR 53 L Glucose 117 H Calcium 8.7 Discharge Plan Discharge Attending physician on discharge: Hal Goodrich Consulting providers: Lia Mcgill Discharging Clinician: Hal Goodrich
== END 2022-03-27 18:13 | disposition home or self-care (01) | DRG 291 ==
LOC: ANHED 22:36 → ANH3MEDSUR 23:40
PROVIDERS: Chiropractor; Internal Medicine Cardiovascular Disease; Physician Assistant; Admitting Provider Internal Medicine; Emergency Provider Emergency Medicine; Visit Provider Internal Medicine
PROC: 5A2204Z Restoration of Cardiac Rhythm, Single (ICD-10-PCS; 2022-03-25 08:30)
DX: I11.0 Hypertensive heart disease with heart failure (principal); I50.31 Acute diastolic (congestive) heart failure; J96.01 Acute respiratory failure with hypoxia; K51.90 Ulcerative colitis, unspecified, without complications; I27.20 Pulmonary hypertension, unspecified; I48.91 Unspecified atrial fibrillation; I08.3 Combined rheumatic disorders of mitral, aortic and tricuspid valves; E87.6 Hypokalemia; G47.33 Obstructive sleep apnea (adult) (pediatric); R91.8 Other nonspecific abnormal finding of lung field; K21.9 Gastro-esophageal reflux disease without esophagitis; E78.00 Pure hypercholesterolemia, unspecified; M11.271 Other chondrocalcinosis, right ankle and foot; M19.072 Primary osteoarthritis, left ankle and foot; M19.071 Primary osteoarthritis, right ankle and foot; Z79.899 Other long term (current) drug therapy; Z90.49 Acquired absence of other specified parts of digestive tract; Z93.2 Ileostomy status; Z94.7 Corneal transplant status; Z96.652 Presence of left artificial knee joint
CPT/HCPCS: 36415; 71046; 71260; 80048; 80053; 80069; 83735; 83880; 84132; 84484; 85025; 87040; 92960; 93005; 96365; 96367; 96375; 96376; 97161; 97166; 97530; 97535; 99285; A9270; G0378; J0456; J0696; J1940; J2250; J3010; J3480; J7040; J7512; Q9967

== ENCOUNTER 2022-04-03 09:22 | Outpatient (CLI) | payer MEDICARE, OTHER, SELFPAY ==
[2022-04-03 10:12] LABS: Anion Gap 19 mmol/L (8-16); Blood Urea Nitrogen 24 mg/dL (7-17); Calcium 9.4 mg/dL (8.4-10.2); Carbon Dioxide 22 mmol/L (22-30); Chloride 98 mmol/L (98-107); Estimated Glomerular Filt Rate 39; Glucose 132 mg/dL (65-110); Magnesium 1.9 mg/dL (1.6-2.3); Potassium 4.5 mmol/L (3.4-5.0); Sodium 139 mmol/L (137-145)
== END 2022-04-03 09:23 | disposition home or self-care (01) ==
PROVIDERS: Referring Provider Internal Medicine Cardiovascular Disease; Visit Provider Internal Medicine
DX: E87.6 Hypokalemia (principal)
CPT/HCPCS: 36415; 80048; 83735

== ENCOUNTER 2022-08-10 09:05 | Outpatient (CLI) | payer MEDICARE, OTHER, SELFPAY ==
--- NOTE | ~2022-08-10 | DEXA_ITS ---
Bone Density Report Name: SAWYER CANCINO Age: 82 Sex: Female Ethnicity: White Date of : 1940 Indication: postmenopausal; screening for osteoporosis; height loss; Referring Provider: UNKNOWN, UNKNOWN Study: Bone densitometry was performed. Exam Date: August 10, 2022 Accession number: [id number] Bone Density: Region BMD T-score Z-score Classification AP Spine(L3, L4) 1.343 2.2 5.2 Normal Femoral Neck (Left) 0.750 -0.9 1.6 Normal Total Hip (Left) 0.960 0.1 2.4 Normal Femoral Neck (Right) 0.710 -1.3 1.2 Osteopenia Total Hip (Right) 0.902 -0.3 2.0 Normal Total Hip Mean 0.931 -0.1 2.2 Normal World Health Organization criteria for BMD impression classify patients as: Normal (T-score at or above -1.0), Osteopenia (T-score between -1.0 and -2.5), or Osteoporosis (T-score at or below -2.5). 10-year Fracture Risk(1): Major Osteoporotic Fracture 12% Hip Fracture 2.9% Reported Risk Factors: [place] (), Neck BMD=0.710, BMI=28.9 (1) FRAX(R) Version 3.08. Fracture probability calculated for an untreated patient. Fracture probability may be lower if the patient has received treatment. Previous Exams: Region Exam Age BMD T-score BMD Change BMD Change Date g/cm2 vs Baseline vs Previous AP Spine (L3-L4) 08/10/2022 82 1.343 2.2 0.200 (17.5%)* 0.135 (11.1%)* 06/27/2018 78 1.209 1.0 0.065 (5.7%)* 0.065 (5.7%)* 05/10/2015 75 1.144 0.4 Total Hip(Left) 08/10/2022 82 0.960 0.1 0.062 (7.0%)* -0.010 (-1.0%) 06/27/2018 78 0.969 0.2 0.072 (8.0%)* 0.072 (8.0%)* 05/10/2015 75 0.897 -0.4 Total Hip(Right) 08/10/2022 82 0.902 -0.3 0.019 (2.2%) -0.050 (-5.3%) 06/27/2018 78 0.952 0.1 0.069 (7.9%)* 0.069 (7.9%)* 05/10/2015 75 0.882 -0.5 *Denotes significance at 95% confidence level, LSC for AP Spine = 0.022 g/cm2, LSC for Total Hip = 0.027 g/cm2 Clinical Information Provided by Patient: Has used the following medications: Vitamin D, Calcium Patient maximum height was 66 Menopause Age: 50 Onset of menses at age 12 Number of children 3 Impression: The patient has low bone mass, based on the Right Femoral Neck T-score. The patient has an estimated ten-year risk of hip fracture of 2.9% and an estimated ten-year risk of major fracture of 12%, based on the WHO FRAX algorithm. The BMD for the Total Hip(Right) decreased, changing by -5.3% since the last DXA exam. Discu
== END 2022-08-10 09:06 | disposition home or self-care (01) ==
DX: M85.80 Other specified disorders of bone density and structure, unspecified site (principal); K51.919 Ulcerative colitis, unspecified with unspecified complications; M85.851 Other specified disorders of bone density and structure, right thigh
CPT/HCPCS: 77080

== ENCOUNTER 2022-10-19 10:33 | Outpatient (CLI) | payer MEDICARE, OTHER, SELFPAY ==
--- NOTE | ~2022-10-19 | XR_ITS ---
EXAMINATION: XR chest 2V 10/19/2022 11:29 INDICATION: Amiodarone therapy PROCEDURE: 2 view chest COMPARISON: 03/21/2022 FINDINGS: The lungs are clear. The cardiomediastinal silhouette is within normal limits. There are no pleural effusions. There is no pneumothorax suspected. There is thoracic and lumbar spondylosis. IMPRESSION: 1: NO ACUTE CARDIOPULMONARY DISEASE. Reviewed, dictated and finalized at location B.
[2022-10-19 11:31] LABS: Alanine Aminotransferase 30 U/L (6-35); Albumin Level 4.5 g/dL (3.5-5.1); Alkaline Phosphatase 59 U/L (38-126); Anion Gap 6 mmol/L (8-16); Aspartate Amino Transferase 36 U/L (14-36); Bilirubin,Total 1.2 mg/dL (0.2-1.3); Blood Urea Nitrogen 14 mg/dL (7-17); Calcium 8.9 mg/dL (8.4-10.2); Carbon Dioxide 32 mmol/L (22-30); Chloride 102 mmol/L (98-107); Estimated Glomerular Filt Rate 53; Glucose 101 mg/dL (65-110); Potassium 4.3 mmol/L (3.4-5.0); Sodium 140 mmol/L (137-145)
[2022-10-19 12:01] LABS: Free T4 Free Thyroxine 1.57 ng/mL (0.78-2.19)
== END 2022-10-19 10:34 | disposition home or self-care (01) ==
PROVIDERS: Visit Provider Nurse Practitioner Adult Health
DX: Z79.899 Other long term (current) drug therapy (principal)
CPT/HCPCS: 36415; 71046; 80053; 84439; 84443

== ENCOUNTER 2023-01-04 15:14 | Outpatient (CLI) | payer MEDICARE, OTHER, SELFPAY ==
--- NOTE | ~2023-01-04 | MM_ITS ---
EXAMINATION: MM screening [facility] BI w skip HISTORY: Screening mammogram TECHNIQUE: Craniocaudal and mediolateral oblique 3-D tomosynthesis images were obtained and synthetic 2-D images were generated. CAD analysis was submitted and interpreted. COMPARISON: 10/16/2021, 11/10/2018, 10/25/2018 BREAST PARENCHYMAL COMPOSITION: The breasts are almost entirely fatty. FINDINGS: No suspicious mass, calcification, or architectural distortion are identified in either ness ast to suggest malignancy. There has been no suspicious interval change. IMPRESSION: 1. No mammographic evidence of malignancy. 2. Recommend routine screening mammography while the patient remains in good health. BI-RADS Category 1: Negative Reviewed, dictated and finalized at location A. IMPRESSION: 1. No mammographic evidence of malignancy. 2. Recommend routine screening mammography while the patient remains in good he alth. BI-RADS Category 1: Negative
== END 2023-01-04 15:15 | disposition home or self-care (01) ==
LOC: ANHIMG 15:16
PROVIDERS: Visit Provider Obstetrics & Gynecology
DX: Z12.31 Encounter for screening mammogram for malignant neoplasm of breast (principal)
CPT/HCPCS: 77063; 77067

== ENCOUNTER 2023-03-17 14:50 | Outpatient (CLI) | payer MEDICARE, OTHER, SELFPAY ==
--- NOTE | 2023-03-17 16:32 | P.PCNPFT_ITS ---
PFT Procedure Performed PFT Procedure Performed Plethysmography (Lung Vol) Diffusing Cap (DLCO) Flow Vol Loop Spirometry w/o Bronchodil PFT Interpretation This is a pulmonary function test with spirometry, plethysmography and diffusing capacity. The test was performed and results interpreted in accordance with the 2019 and 2005 ATS/ERS Task Force guidelines respectively using the Global Lung Function Initiative-2012 reference equations. Patient demonstrated good effort and cooperation. Reproducibility criteria were met. The quality of the spirometry maneuver was Grade D. Of note the patient's spirometry declined with each effort. Findings: Spirometry: The contour the inspiratory and expiratory flow tracing are normal. The FVC is 2.37 L, 97% predicted. The FEV1 is 1.76 L, 95% predicted. The FEV1: FVC ratio 74%. Plethysmography: The total lung capacity is 4.31 L, 85% predicted. The fun ctional residual capacity is 3.01 L, 102% predicted. The residual volume is 1.94 L, 78% predicted. Diffusing capacity: The diffusing capacity unadjusted for hemoglobin and carboxyhemoglobin is 11.1, 59% predicted. The diffusing capacity adjusted for alveolar volume is 3.54, 87% predicted. In comparison to previous pulmonary function testing on 01/19/2022 the FVC is unchanged from 2.61 L to 2.37 L. The FEV1 is decreased from 2.07 L to 1.76 L. The total lung capacity is unchanged from 4.21 L to 4.31 L. The functional residual capacity is unchanged from 2.64 L to 3.01 L. The residual volume is increased from 1.60 L to 1.94 L. The diffusing capacity unadjusted for hemoglobin and carboxyhemoglobin is decreased from 13.6 to 11.1. The diffusing capacity adjusted for alveolar volume is unchanged from 3.97 to 3.54. Impression: The spirometry is normal without evidence of an obstructive abnormality. The lung volumes are normal. The diffusing capacity unadjusted for hemoglobin and carboxyhemoglobin is moderately decreased and normalizes when adjusted for alveolar volume. In comparison to previous pulmonary function testing on 01/19/2022 there has been a greater than anticipated time dependent decrease in the FVC, FEV1, and diffusing capacity unadjusted for hemoglobin. There has been a greater than anticipated time dependent increase in the residual volume with no significant change in the total lung capacity, functional residual capacity or diffusing capacity adjusted for alveolar volume. Clinical correlation is recommended.
== END 2023-03-17 14:51 | disposition home or self-care (01) ==
PROVIDERS: Visit Provider Internal Medicine Cardiovascular Disease
DX: I27.20 Pulmonary hypertension, unspecified (principal); Z91.89 Other specified personal risk factors, not elsewhere classified; Z79.899 Other long term (current) drug therapy
CPT/HCPCS: 94375; 94726; 94729

== ENCOUNTER 2024-01-07 09:23 | Outpatient (CLI) | payer MEDICARE, OTHER, SELFPAY ==
--- NOTE | ~2024-01-07 | MM_ITS ---
EXAMINATION: MM screening [facility] BI w skip HISTORY: Screening TECHNIQUE: Craniocaudal and mediolateral oblique 3-D tomosynthesis images were obtained and synthetic 2-D images were generated. CAD analysis was submitted and interpreted. COMPARISON: Comparison to multiple prior studies sequentially, with oldest reviewed study dated 10/09. BREAST PARENCHYMAL COMPOSITION: Not Dense: The breasts are almost entirely fatty. FINDINGS: There is no evidence of suspicious mass, calcification, or architectural distortion to sugg est malignancy in either breast. There has been no suspicious interval change. IMPRESSION: 1. No mammographic evidence of malignancy. 2. Recommend routine screening mammography in one year. BI-RADS Category 1: Negative Reviewed, dictated and finalized at location B.
== END 2024-01-07 09:24 | disposition home or self-care (01) ==
DX: Z12.31 Encounter for screening mammogram for malignant neoplasm of breast (principal)
CPT/HCPCS: 77063; 77067

== ENCOUNTER 2024-05-05 07:57 | Outpatient (CLI) | payer MEDICARE, OTHER, SELFPAY ==
[2024-05-05 08:17] LABS: Basophils Absolute Auto 0.1 K/mm3 (0.0-0.1); Basophils Percent Auto 0.7 % (0.2-1.2); Eosinophils Absolute Auto 0.3 K/mm3 (0-0.3); Eosinophils Percent Auto 3.9 % (0-4.4); Hematocrit 37.8 % (37.0-47.0); Hemoglobin 11.7 g/dL (12.0-15.0); Immature Granulocyte Absolute 0.02 K/mm3 (0.00-0.031); Immature Granulocyte Percent A 0.3 % (0-0.5); Lymphocytes Absolute Auto 2.05 K/mm3 (0.9-3.2); Lymphocytes Percent Auto 29.4 % (18.3-44.2); Mean Corpuscular Hemoglobin 28.7 pg (26-34); Mean Corpuscular Volume 92.9 fl (80-100); Mean Platelet Volume 9.8 fl (7.4-10.4); Monocytes Absolute Auto 0.6 K/mm3 (0.1-0.6); Monocytes Percent Auto 8.6 % (2.6-8.5); Neutrophils Percent Auto 57.1 % (45.5-73.1); Platelet Count Result 294 k/mm3 (150-375); Red Blood Count 4.07 M/mm3 (4.2-5.4); Red Cell Distribution Width 15.4 % (11.5-14.5)
[2024-05-05 08:31] LABS: Alanine Aminotransferase 17 U/L (6-35); Albumin Level 4.5 g/dL (3.5-5.1); Alkaline Phosphatase 90 U/L (38-126); Anion Gap 9 mmol/L (4-12); Aspartate Amino Transferase 26 U/L (14-36); Bilirubin,Total 1.3 mg/dL (0.2-1.3); Blood Urea Nitrogen 19 mg/dL (7-17); Calcium 9.5 mg/dL (8.4-10.2); Carbon Dioxide 26 mmol/L (22-30); Chloride 103 mmol/L (98-107); Cholesterol 171 mg/dL (0-200); Estimated Glomerular Filt Rate 39; Glucose 106 mg/dL (65-110); HDL Direct 57 mg/dL; Sodium 138 mmol/L (137-145); Triglycerides 192 mg/dL (<150)
[2024-05-05 08:42] LABS: LDL Cholesterol Direct 58 mg/dL
[2024-05-05 09:35] LABS: Folic Acid > 20.0 ng/mL (2.76->20); Vitamin B12 > 1000.0 pg/mL (239-931)
[2024-05-05 10:00] LABS: MALB Creatinine Ratio 17.9 mg/g (0-30); Microalbumin Urine Random 25.8 mg/L (0-16.7)
== END 2024-05-05 07:58 | disposition home or self-care (01) ==
PROVIDERS: PCP Family Medicine; Visit Provider Family Medicine
DX: D64.9 Anemia, unspecified (principal); E66.3 Overweight; I48.91 Unspecified atrial fibrillation; I50.31 Acute diastolic (congestive) heart failure; E78.5 Hyperlipidemia, unspecified; Z13.1 Encounter for screening for diabetes mellitus
CPT/HCPCS: 36415; 80053; 80061; 82043; 82607; 82746; 83036; 85025

== ENCOUNTER 2024-05-10 15:27 | Outpatient (CLI) | payer MEDICARE, OTHER, SELFPAY ==
--- NOTE | ~2024-05-10 | XR_ITS ---
SINGLE AP VIEW PELVIS Ordering provider: Alin Hale DO History: . R10.32 - Left lower quadrant pain . Comparison: None. FINDINGS: BONES: Possibility of fracture in the left inferior pubic ramus is not excluded. HIP JOINT SPACES: Bilateral severe osteoarthritic changes. SACROILIAC JOINT SPACES/LUMBAR SPINE: The sacroiliac joint spaces are normal. Mild degenerative martínez es of the visualized lower lumbar spine. PUBIC SYMPHYSIS: Pubic symphysitis. SOFT TISSUES: Normal. IMPRESSION: Possibility of fracture in the left inferior pubic ramus. Bilateral hip severe osteoarthritic changes. Reviewed, dictated and finalized at location A. LLURGICAL LABORATORY ASSISTANT
== END 2024-05-10 15:28 | disposition home or self-care (01) ==
PROVIDERS: PCP Family Medicine; Visit Provider Family Medicine
DX: R10.32 Left lower quadrant pain (principal)
CPT/HCPCS: 72170

== ENCOUNTER 2024-07-18 14:03 | Emergency (ER) | payer MEDICARE, OTHER, SELFPAY ==
--- NOTE | ~2024-07-18 | CT_ITS ---
EXAMINATION: CT brain wo con DATE: 07/18/2024 14:50 INDICATION: Head injury TECHNIQUE: Computed tomography (CT) of the head was performed without intravenous contrast. Sagittal and coronal reconstructions were performed. The mA was adjusted according to patient size. Iterative reconstruction technique was employed. The dose-length product was 681.00 mGy-cm. COMPARISON: None FINDINGS: No fracture. No acute intracranial hemorrhage, acute infarction or abnormal extra axial fluid collect ion. There is mild scattered white matter hypoattenuation consistent with chronic small vessel ischem ic disease. Symmetric prominence of the sulciand subarachnoid spaces overlying the convexities consis tent with mild age-appropriate diffuse cerebral volume loss. Ventricles are normal and symmetric. No mass/mass effect. Changes of bilateral intraocular lens replacement. The orbits, paranasal sinuses an d mastoid air cells are normal. IMPRESSION: 1. Normal aging brain with no fracture or acute intracranial process. Reviewed, dictated and finalized at location A. [place] [employer]
--- NOTE | ~2024-07-18 | CT_ITS ---
EXAMINATION: CT cervical spine wo con DATE: 07/18/2024 14:50 INDICATION: Head injury TECHNIQUE: Computed tomography (CT) of the cervical spine was performed without intravenous contrast. Automated exposure control and iterative reconstruction technique were employed. The dose-length pro duct was 159.88 mGy-cm. COMPARISON: Chest CT dated 03/22/2022 FINDINGS: Severe atlantoaxial osteoarthritis. There is an exaggerated cervical lordosis, likely compensatory fo r the moderate thoracic kyphosis seen on the chest CT. No spondylolisthesis or facet subluxation. Pos toperative change of prior C5-T2 posterior spinal fusion with bilateral vertical lesly and lateral mass and pedicle screws. There is bone graft material along the posterior elements of the posterior spina l fusion. There is a chronic superior endplate compression fracture at C7 with minimal vertebral body height loss along the fracture which is new since the prior study. Remaining vertebral body heights are normal. No acute fractures. There is mild disc height loss at C2-C3. There is discogenic calcific ation throughout the cervical spine. Multilevel mild to moderate cervical uncovertebral osteoarthriti s. Disc bulges resulting in mild central canal stenosis from C2-C3 through C5-C6, most prominent at C 4-C5. Mild to moderate facet osteoarthritis throughout the cervical spine. This contributes to multil evel neural foraminal stenosis, moderate severity on the right at C6-C7 and on the left at C4-C5. The re are bridging or nearly bridging anterior osteophytes extending from C6. T4 consistent with diffuse idiopathic skeletal hyperostosis (DISH). Small amount of atherosclerotic calcification at the bilat eral carotid bulbs. Cervical soft tissues are otherwise unremarkable. Visualized apices of lungs are clear. IMPRESSION: 1. Mild cervical spondylosis with instrumented C5-T2 posterior spinal fusion spanning a chronic mild T7 superior endplate compression fracture. No acute osseous abnormality. Reviewed, dictated and finalized at location A. IOGRAPH OPERATOR IMPRESSION: 1. Mild cervical spondylosis with instrumented C5-T2 posterior spinal fusion sp anning a chronic mild T7 superior endplate compression fracture. No acute osseo us abnormality.
[2024-07-18 14:18] VITALS: BP 122/61; PULSE 78; RESP 16; TEMP 36.6; O2SAT 98
--- OUTSIDE RECORDS SUMMARY | 2024-07-18 14:52 | XMS_ITS | Referral Summary ---
Author Organization [facility] Address [address] [place] [address] Care Team Providers Care Software Quality Assurance Engineer Name Role Phone Gabo Espinoza MD Unavailable [phone] Primary Care Prov ider Source Comments [facility],non-owned Affiliates and Associated Physician Practices is amultiple site organization consisting of ambulatory clinics and hospital sitesin [place], [place], [place] and [place]. This disclosure is being madepursuant to the Care Everywhere program and may not contain all information available regarding this patient. Last updated 18.[facility] Allergies Active Allergy Reactions Criticality Noted Date Comments Ampicillin Unknown Erythromycin Unknown Meloxicam Swelling 10/29/2010 Patient says this allergy didn't sound familiar to her Nitrofurantoin Unknown Penicillins Rash Medium 01/18/2013 ampicillin, ampicillin, ampicillin Medications * Be aware that medications may not be up to date on this document. Alwaysverify current medications with the patient. Medication Sig Dispensed Refills Start Date End Date Status folic acid (FOLVITE) 1 MG tablet Take 1 mg by mouth DAILY. 90 tablet 1 09/22/2016 Active simvastatin (ZOCOR) 20 MG tablet Take 0.5 (one-half) tablet by mouth every 2 days Active B Complex Vitamins (VITAMIN B COMPLEX PO) Take by mouth once daily Active Calcium Carbonate (CALCIUM 600 PO) Take by mouth 2 times daily Active amLODIPine (NORVASC) 10 MG tablet Take 1 (one) tablet by mouth every evening Active multivitamin daily tablet Take 1 (one) tablet by mouth daily with food Active indomethacin (INDOCIN) 25 MG capsule Take 1 (one) capsule by mouth once daily as needed for Pain Active esomeprazole (NEXIUM) 40 MG capsule Take 1 (one) capsule by mouth once daily Active empagliflozin (Jardiance) 10 MG tablet 1 (one) tablet once daily 03/27/2022 Active spironolactone (Aldactone) 25 MG tablet Take 0.5 (one-half) tablet by mouth once daily 03/27/2022 Active apixaban (Eliquis) 5 MG tablet Take 1 (one) tablet by mouth 2 times daily 01/25/2023 Active furosemide (Lasix) 20 MG tablet 03/13/2022 Active potassium chloride ER (Klor-Con M) 20 MEQ tablet 04/05/2023 Active Active Problems Problem Noted Date Diagnosed Date Full thickness rotator cuff tear 04/30/2022 Chronic anticoagulation 03/17/2022 Persistent atrial fibrillation 03/17/2022 Mixed hyperlipidemia 05/05/2021 Mitral stenosis 10/29/2020 Overview (04/30/2022): Aortic stenosis, mild Presence of left artificial knee joint 0 Status post left knee replacement 05/18/2018 Primary osteoarthritis of left knee 03/15/2018 DULCE on CPAP 12/11/2015 Overview (04/30/2022): DULCE on CPAP Pulmonary hypertension 12/11/2015 Overview (04/30/2022): Pulmonary HTN Rheumatoid arthritis 10/07/2015 Overview (04/30/2022): Rheumatoid arthritis, involving unspecified site, unspecified rheumatoid factor presence Other specified disorders of bone density and structure, unspecified site 08/27/2015 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 (AF LURIA, FLUZONE TRIVALENT; 6MO+) (IIV3) 03/20/2013 Covid Moderna primary monovalent 12+ yr 0.5mL ,06/27/2020 INFLUENZA VACCINE, HIGH-DOSE , QUADR. (FLUZONE HIGH-DOSE QUADRIVALENT; 65Y+), 0.7 ML (HD-IIV4) 02/09/2017 INFLUENZA VACCINE, QUADR. (A FLURIA, FLUZONE QUADRIVALENT; 6MO+) (IIV4) 03/04/2009 INFLUENZA VACCINE, QUADR. (F LUZONE; FLULAVAL; FLUARIX; AFLURIA QUADRIVALENT; 6MO+), 0.5 ML (IIV4) 03/11/2018 PNEUMOCOCCAL PPSV23 05/02/2020,03/04/1999 TD (AGE 7-ADULT) 03/04/1999 TDAP (7yrs+) 11/08/2008 Td (Adult), 2 Lf Tetanus Toxoid, Adsorbed, Pf ZOSTER VACCINE, LIVE 03/09/2008 Zoster Hzv Vacc Recombinant Inj Im 06/21/2018, Social History Tobacco Use Types Packs/Day Years Used Date Smoking Tobacco: Never Smokeless Tobacco: Never Tobacco Cessation:Counseling Given: Not Answered Alcohol Use Standard Drinks/Week Comments No 0 (1 standard drink = 0.6 oz pur e alcohol) Sex and Gender Information Value Date Recorded Sex Assigned at Not on file Gender Identity Not on file Sexual Orientation Not on file Last Filed Vital Signs Vital Sign Reading Time Taken Comments Blood Pressure 124/63 05/03/2023 12:24 PM PASTING INSPECTOR Pulse 72 05/03/2023 12:24 PM PASTING INSPECTOR Temperature 36.6 C (97.8 F) 05/03/2023 12:24 PM PASTING INSPECTOR Respiratory Rate 18 04/30/2022 10:21 AM PASTING INSPECTOR Oxygen Saturation 100% 05/03/2023 12:24 PM PASTING INSPECTOR Inhaled Oxygen Concentration - - Weight 74.4 kg (164 lb) 05/03/2023 12:24 PM PASTING INSPECTOR Height 162.6 cm (5' 4 ) 05/03/2023 12:24 PM PASTING INSPECTOR Body Mass Index 28.15 05/03/2023 12:24 PM PASTING INSPECTOR Functional Status Functional Status Response Date of Assess ment Is person deaf or have serious hearing difficult y? No 05/18/2018 Is person blind or have serious difficulty seein g? No 05/18/2018 Does person have serious dif ficulty walking/climbing stairs? Yes 05/18/2018 Does person have difficulty dressing/bathing? No 05/18/2018 Does person have difficulty doing errands alone? Yes 05/18/2018 Cognitive Status Response Date of Assessm ent Does person have difficulty concentrating/remembering/making decisions? No 05/18/2018 Plan of Treatment Not on file Goals Goal Patient Goal Type Associated Problems Recent Progress Patient-Stated? Author Medication Management General On track( 023 12:36 PM PASTING INSPECTOR) No Abbey Carlos, RN Note: Expected end date: ongoing Interventions: Take all medications as prescribed Let your doctor know right away about any changes in your medications Make sure to request a refill of your medication at least one week prior to your last dose Medical Devices Implanted Type Area Legal Assistant Device Identifier Shelf Expiration Date Model / Serial / Lot Cmnt Bone Cblt 40gm Hvisc Strl Implanted:Qty: 1 on 05/18/2018 by Gabo Espinoza MD at [facility] Left: Knee [employer] 12/22/2018 [id number] / / [id number] Cmpnt Ptlr 28mm 1 Pg Wire Ascnt [facility] Kn - [id number] Implanted:Qty: 1 on 05/18/2018 by Gabo Espinoza MD at [facility] Left: Knee [employer] 04/27/2023 [id number] / [id number] / Cmpnt Fem Kn Lt Cr Cmnt Prm Vngrd Intlk Implanted:Qty: 1 on 05/18/2018 by Gabo Espinoza MD at [facility] Left: Knee [employer] 04/18/2028 [id number] / / [id number] Tray Tib 67mm Kn Cocr I Beam Implanted:Qty: 1 on 05/18/2018 by Gabo Espinoza MD at [facility] Left: Knee [employer] 03/18/2028 [id number] / / [id number] Brng [id number] Vngrd Arcm Kn Ant Stab Implanted:Qty: 1 on 05/18/2018 by Gabo Espinoza MD at [facility] Left: Knee [employer] 02/16/2023 [id number] / / [id number] Administered Medications Advance Directives * Full Code (Latest Code Status on File) Date Activated Date Inactivated Comments 05/18/2018 10:31 AM 05/21/2018 2:08 PM Care Teams Software Quality Assurance Engineer Relationship Specialty Start Date End Date [facility], [address] [place] [address] [address] [facility], [place] [address] PCP - General 11/17/18 [place] [id number] [address] [id number] Orthopedic Surgery 03/15/18
--- OUTSIDE RECORDS SUMMARY | 2024-07-18 14:52 | XMS_ITS | Patient Health Summary ---
Author Organization [facility] Address [address] [place] [address] Care Team Providers Care Assembly Detailer Name Role Phone Abram Espinoza MD Unavailable [phone] [place] [address] Primary Care Prov ider Note from [facility],non-owned Affiliates and Associated Physician Practices is amultiple site organization consisting of ambulatory clinics and hospital sitesin [place], [place], [place] and [place]. This disclosure is being madepursuant to the Care Everywhere program and may not contain all information available regarding this patient. Last updated 18.[facility] Allergies * Ampicillin(Unknown) * Erythromycin(Unknown) * Meloxicam(Swelling) * Nitrofurantoin(Unknown) * Penicillins(Rash) -Medium Criticality Medications * Be aware that medications may not be up to date on this document. Alwaysverify current medications with the patient. * folic acid (FOLVITE) 1 MG tablet(Started 09/22/2016) Take 1 mg by mouth DAILY. 1 refill left * simvastatin (ZOCOR) 20 MG tablet Take 0.5 (one-half) tablet by mouth every 2 days * B Complex Vitamins (VITAMIN B COMPLEX PO) Take by mouth once daily * Calcium Carbonate (CALCIUM 600 PO) Take by mouth 2 times daily * amLODIPine (NORVASC) 10 MG tablet Take 1 (one) tablet by mouth every evening * multivitamin daily tablet Take 1 (one) tablet by mouth daily with food * indomethacin (INDOCIN) 25 MG capsule Take 1 (one) capsule by mouth once daily as needed for Pain * esomeprazole (NEXIUM) 40 MG capsule Take 1 (one) capsule by mouth once daily * empagliflozin (Jardiance) 10 MG tablet(Started 03/27/2022) 1 (one) tablet once daily * spironolactone (Aldactone) 25 MG tablet(Started 03/27/2022) Take 0.5 (one-half) tablet by mouth once daily * apixaban (Eliquis) 5 MG tablet(Started 01/25/2023) Take 1 (one) tablet by mouth 2 times daily * furosemide (Lasix) 20 MG tablet(Started 03/13/2022) * potassium chloride ER (Klor-Con M) 20 MEQ tablet(Started 04/05/2023) Active Problems Problem Noted Date Diagnosed Date Full thickness rotator cuff tear 04/30/2022 Chronic anticoagulation 03/17/2022 Persistent atrial fibrillation 03/17/2022 Mixed hyperlipidemia 05/05/2021 Mitral stenosis 10/29/2020 Presence of left artificial knee joint 0 Status post left knee replacement 05/18/2018 Primary osteoarthritis of left knee 03/15/2018 DULCE on CPAP 12/11/2015 Pulmonary hypertension 12/11/2015 Rheumatoid arthritis 10/07/2015 Other specified disorders of bone density and structure, unspecified site 08/27/2015 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 (AFLURIA, FLUZONE TRIVALENT; 6MO+) (IIV3)(Given 03/20/2013) * Covid Moderna primary monovalent 12+ yr 0.5mL(Given 07/25/2020, 06/27/2020) * INFLUENZA VACCINE, HIGH-DOSE, QUADR. (FLUZONE HIGH-DOSE QUADRIVALENT; 65Y+), 0.7 ML (HD-IIV4)(Given 02/09/2017) * INFLUENZA VACCINE, QUADR. (AFLURIA, FLUZONE QUADRIVALENT; 6MO+) (IIV4)(Given 03/04/2009) * INFLUENZA VACCINE, QUADR. (FLUZONE; FLULAVAL; FLUARIX; AFLURIA QUADRIVALENT; 6MO+), 0.5 ML (IIV4)(Given 03/11/2018) * PNEUMOCOCCAL PPSV23(Given 05/02/2020, 03/04/1999) * TD (AGE 7-ADULT)(Given 03/04/1999) * TDAP (7yrs+)(Given 11/08/2008) * Td (Adult), 2 Lf Tetanus Toxoid, Adsorbed, Pf(Given 05/02/2020) * ZOSTER VACCINE, LIVE(Given 03/09/2008) * Zoster Hzv Vacc Recombinant Inj Im(Given 06/21/2018, 02/08/2018) Social History Tobacco Use Types Packs/Day Years [...] Comments Blood Pressure 124/63 05/03/2023 12:24 PM TEACHERS' AIDE Pulse 72 05/03/2023 12:24 PM TEACHERS' AIDE Temperature 36.6 C (97.8 F) 05/03/2023 12:24 PM TEACHERS' AIDE Respiratory Rate 18 04/30/2022 10:21 AM TEACHERS' AIDE Oxygen Saturation 100% 05/03/2023 12:24 PM TEACHERS' AIDE Inhaled Oxygen Concentration - - Weight 74.4 kg (164 lb) 05/03/2023 12:24 PM TEACHERS' AIDE Height 162.6 cm (5' 4 ) 05/03/2023 12:24 PM TEACHERS' AIDE Body Mass Index 28.15 05/03/2023 12:24 PM TEACHERS' AIDE Medical Devices Implanted Type Area Tunnel Inspector Device Identifier Shelf Expiration Date Model / Serial / Lot Cmnt Bone Cblt 40gm Hvisc Strl Implanted:Qty: 1 on 05/18/2018 by Abram Espinoza MD at [facility] Left: Knee [employer] 12/22/2018 [id number] / / [id number] Cmpnt Ptlr 28mm 1 Pg Wire Ascnt Arcm Kn - [id number] Implanted:Qty: 1 on 05/18/2018 by Abram Espinoza MD at [facility] Left: Knee [employer] 04/27/2023 [id number] / [id number] / Cmpnt Fem Kn Lt Cr Cmnt Prm Vngrd Intlk Implanted:Qty: 1 on 05/18/2018 by Abram Espinoza MD at [facility] Left: Knee [employer] 04/18/2028 [id number] / / [id number] Tray Tib 67mm Kn Cocr I Beam Implanted:Qty: 1 on 05/18/2018 by Abram Espinoza MD at [facility] Left: Knee [employer] 03/18/2028 [id number] / / [id number] Brng [id number] Vngrd Arcm Kn Ant Stab Implanted:Qty: 1 on 05/18/2018 by Abram Espinoza MD at [facility] Left: Knee [employer] 02/16/2023 [id number] / / [id number] Procedures * MA REMOVE CERUMEN IMPACTED W INSTR KURTIS(Performed 11/25/2021) Performed for Bilateral impacted cerumen * AUDIOLOGY/TYMPANOMETRY ORDER(Performed 11/25/2021) * XR KNEE LEFT 3VW(Performed 06/30/2018) Performed for Status post left knee replacement * HGB HCT PANEL(Performed 05/20/2018) * NEURAXIAL BLOCK(Performed 05/19/2018) * HGB HCT PANEL(Performed 05/19/2018) * HOME CPAP/BIPAP FOR HOSP USE: NOCTURNAL 02(Performed 05/19/2018) * ARTHROPLASTY TOTAL KNEE(Performed 05/18/2018) * HOME CPAP/BIPAP FOR HOSP USE: NOCTURNAL 02(Performed 05/18/2018) * HOME CPAP/BIPAP FOR HOSP USE: NOCTURNAL 02(Performed 05/18/2018) * EKG 12-LEAD(Performed 04/25/2018) Performed for Preoperative examination * COMPREHENSIVE METABOLIC PANEL(Performed 04/25/2018) Performed for Preoperative examination * CBC W AUTO DIFFERENTIAL(Performed 04/25/2018) Performed for Preoperative examination * CULTURE MSSA/MRSA(Performed 04/25/2018) Performed for Preoperative examination * COMPREHENSIVE METABOLIC PANEL(Performed 01/21/2017) * URINALYSIS W/MICROSCOPIC NO CULTURE(Performed 01/21/2017) * C-REACTIVE PROTEIN(Performed 01/21/2017) * ERYTHROCYTE SEDIMENTATION RATE(Performed 01/21/2017) * CBC W AUTO DIFFERENTIAL(Performed 01/21/2017) * URINALYSIS W/MICROSCOPIC NO CULTURE(Performed 10/09/2016) * ERYTHROCYTE SEDIMENTATION RATE(Performed 10/09/2016) * C-REACTIVE PROTEIN(Performed 10/09/2016) * COMPREHENSIVE METABOLIC PANEL(Performed 10/09/2016) * CBC W AUTO DIFFERENTIAL(Performed 10/09/2016) * HEPATIC FUNCTION PANEL(Performed 08/17/2016) * PT-INR [facility](Performed 08/17/2016) * C-REACTIVE PROTEIN(Performed 08/07/2016) * CBC W AUTO DIFFERENTIAL(Performed 08/07/2016) * URINALYSIS W/MICROSCOPIC NO CULTURE(Performed 08/07/2016) * ERYTHROCYTE SEDIMENTATION RATE(Performed 08/07/2016) * COMPREHENSIVE METABOLIC PANEL(Performed 08/07/2016) * CBC W AUTO DIFFERENTIAL(Performed 08/07/2016) * URINALYSIS W/MICROSCOPIC NO CULTURE(Performed 08/07/2016) * ERYTHROCYTE SEDIMENTATION RATE(Performed 08/07/2016) * COMPREHENSIVE METABOLIC PANEL(Performed 08/07/2016) * CBC W AUTO DIFFERENTIAL(Performed 08/07/2016) * URINALYSIS W/MICROSCOPIC NO CULTURE(Performed 08/07/2016) * COMPREHENSIVE METABOLIC PANEL(Performed 08/07/2016) * CBC W AUTO DIFFERENTIAL(Performed 08/07/2016) * C-REACTIVE PROTEIN(Performed 06/26/2016) * CBC W AUTO DIFFERENTIAL(Performed 06/26/2016) * ERYTHROCYTE SEDIMENTATION RATE(Performed 06/26/2016) * URINALYSIS W/MICROSCOPIC NO CULTURE(Performed 06/26/2016) * COMPREHENSIVE METABOLIC PANEL(Performed 06/26/2016) * CBC W AUTO DIFFERENTIAL(Performed 06/26/2016) * ERYTHROCYTE SEDIMENTATION RATE(Performed 06/26/2016) * URINALYSIS W/MICROSCOPIC NO CULTURE(Performed 06/26/2016) * COMPREHENSIVE METABOLIC PANEL(Performed 06/26/2016) * CBC W AUTO DIFFERENTIAL(Performed 06/26/2016) * ERYTHROCYTE SEDIMENTATION RATE(Performed 06/26/2016) * URINALYSIS W/MICROSCOPIC NO CULTURE(Performed 06/26/2016) * CBC W AUTO DIFFERENTIAL(Performed 06/26/2016) * ERYTHROCYTE SEDIMENTATION RATE(Performed 06/26/2016) * CBC W AUTO DIFFERENTIAL(Performed 06/26/2016) * URINALYSIS W/MICROSCOPIC NO CULTURE(Performed 05/01/2016) * COMPREHENSIVE METABOLIC PANEL(Performed 05/01/2016) * CBC W AUTO DIFFERENTIAL(Performed 05/01/2016) * URINALYSIS W/MICROSCOPIC NO CULTURE(Performed 12/25/2015) * COMPREHENSIVE METABOLIC PANEL(Performed 12/25/2015) * CBC W AUTO DIFFERENTIAL(Performed 12/25/2015) * URINALYSIS W/MICROSCOPIC NO CULTURE(Performed 10/11/2015) * COMPREHENSIVE METABOLIC PANEL(Performed 10/11/2015) * CBC W AUTO DIFFERENTIAL(Performed 10/11/2015) * URINALYSIS W/MICROSCOPIC NO CULTURE(Performed 08/13/2015) * COMPREHENSIVE METABOLIC PANEL(Performed 08/13/2015) * CBC W AUTO DIFFERENTIAL(Performed 08/13/2015) * URINALYSIS W/MICROSCOPIC NO CULTURE(Performed 06/13/2015) * COMPREHENSIVE METABOLIC PANEL(Performed 06/13/2015) * CBC W AUTO DIFFERENTIAL(Performed 06/13/2015) * QUANTIFERON TB-GOLD(Performed 03/04/2015) * ERYTHROCYTE SEDIMENTATION RATE(Performed 03/01/2015) * C-REACTIVE PROTEIN(Performed 03/01/2015) * PTH INTACT W/O CALCIUM(Performed 03/01/2015) * VITAMIN D 25-HYDROXY D2+D3(Performed 03/01/2015) * TSH(Performed 03/01/2015) * URINALYSIS W/MICROSCOPIC NO CULTURE(Performed 03/01/2015) * COMPREHENSIVE METABOLIC PANEL(Performed 03/01/2015) * CBC W AUTO DIFFERENTIAL(Performed 03/01/2015) * PROTEIN 14-3-3 BLOOD(Performed 03/01/2015) * CYCLIC CITRULLINATED PEPTIDE(CCP) AB IGG(Performed 03/01/2015) * RHEUMATOID FACTOR BLOOD QUANTITATIVE(Performed 03/01/2015) * FOREIGN EXCHANGE TRADER ANTIBODY(Performed 03/01/2015) * CARLOS (SM) ANTIBODY CHUNG(Performed 03/01/2015) * SS-A/SS-B (SJOGREN'S) ANTIBODY PANEL(Performed 03/01/2015) * DNA ANTIBODY DOUBLE STRANDED(Performed 03/01/2015) * DNA ANTIBODY DS CRITHIDIA IFA(Performed 03/01/2015) * SONIA BLOOD SCREEN W/REFLEX TITER(Performed 03/01/2015) * HEPATITIS C ANTIBODY(Performed 03/01/2015) * HEPATITIS B SURFACE ANTIGEN W RFLX CONFIRMATION(Performed 03/01/2015) * HEPATITIS B CORE ANTIBODY TOTAL(Performed 03/01/2015) * PATHOLOGY TISSUE(Performed 02/02/2014) * COMPREHENSIVE METABOLIC PANEL(Performed 01/16/2014) * PT-INR [facility](Performed 01/16/2014) * PTT [facility](Performed 01/16/2014) * URINALYSIS W/MICROSCOPIC NO CULTURE(Performed 01/16/2014) * CBC W AUTO DIFFERENTIAL(Performed 01/16/2014) * CULTURE URINE(Performed 01/16/2014) * CBC W AUTO DIFFERENTIAL(Performed 01/16/2014) * EKG 12-LEAD(Performed 01/16/2014) * MRI ABDOMEN W MRCP WWO CONT W3D(Performed 02/10/2013) * PATHOLOGY TISSUE(Performed 01/19/2013) * PATHOLOGY TISSUE(Performed 01/19/2013) * CREATININE BLOOD - POCT (IP) [facility](Performed 05/31/1998) Results * MA REMOVE CERUMEN IMPACTED W INSTR KURTIS (11/25/2021 2:19 PM CDT) Narrative Neptali Finney APRN-CNP - 11/25/2021 2:19 PM CDT Neptali Finney APRN-CNP 11/25/2021 2:28 PM Due to the findings on physical examination, in correlation with the patient's symptomatology, the decision was made to perform a procedure today in clinic. Consent obtained prior to starting procedure. Procedure note: Pre Op Dx: Impacted cerumen, bilateral Post Op: same Procedure: Cerumen removal, bilateral with microscope and instrumentation Provider: Reg After consent was obtained, the microscope was introduced and an maureen speculum of appropriate size was placed. Using a combination of a wax curette and micro-suction, the cerumen was carefully removed under direct visualization. The bilateral TM's were found to be intact with myringosclerosis. Boric acid powder was applied to bilateral EACs. I (Neptali Finney, KEVON), was present for the entire procedure and can verify that the patient tolerated the procedure well. Neptali HART PROCEDURE/ MINOR SURGICAL ORDERABLES * AUDIOLOGY/TYMPANOMETRY ORDER (11/25/2021 12:27 PM CDT) Narrative Gonzales Thomas, PhD - 11/25/2021 1:13 PM CDT Rosaura Reyes is a 81 year old female was seen for an assessment of their hearing. The patient reports difficulty hearing. There is not a report of dizziness. There is not a report of tinnitus. There is not a report of otalgia. There is not a report of noise exposure. There is not a history of hearing loss in the family. There is not a history of previous ear surgery. Results: Findings were reviewed and discussed with Rosaura Reyes following the hearing evaluation. Pure-tone testing revealed a sensorineural hearing loss in the right ear and a sensorineural hearing loss in the left ear. Plan: 1. The risks and benefits of my recommendations, as well as other treatment options were discussed today. 2. I recommend that the patient follow up with their facility, ENT or PCP PRN. Gonzales Thomas, Ph.D., DOE., CCC-A Groover Runner Director, Division of Audiology Department of Otolaryngology- Head & Neck Surgery [facility] Gonzales Thomas PhD AUDIOLOGY SERVICES O RDERABLES * XR KNEE LEFT 3VW (06/30/2018 2:59 PM TEACHERS' AIDE) Anatomical Region Laterality Modality Lower Extremity Computed Radiogr aphy Narrative 06/30/2018 4:43 PM TEACHERS' AIDE Evie Finch, RT(R) 06/30/2018 4:43 PM See progress notes for results Abram Espinoza MD DIAGNOSTIC IMAGING O RDERABLES * (ABNORMAL) HGB HCT PANEL (05/20/2018 3:05 AM TEACHERS' AIDE) Only the most recent of2 resultswithin the time period is included. Hemoglobin 10.7(L) 12.0 - 15.6 gm/dL 05/20/2018 3:23 AM TEACHERS' AIDE [facility] Hematocrit 32.7(L) 35.9 - 45.5 % 05/20/2018 3:23 AM TEACHERS' AIDE [facility] Blood BLOOD SPECIMEN / Unknown Venipuncture / Unknown 05/20/2018 3:05 AM TEACHERS' AIDE 05/20/2018 3:16 AM TEACHERS' AIDE Abram Espinoza MD LAB - HEMATOLOGY ORD ERABLES [facility] [address] [place] [address] * NEURAXIAL BLOCK (05/19/2018 6:05 AM TEACHERS' AIDE) Narrative Brando Garcia MD - 05/19/2018 6:05 AM TEACHERS' AIDE Johnna Montalvo, ASPHALT WORKER-BARREL ASSEMBLER 05/18/2018 7:56 AM Neuraxial Block Note Procedure Name: Neuraxial Block Patient Location: OR Pre-Procedure: Indications: surgical anesthesia Pre-Anesthetic Checklist: Patient identified, IV Checked, Risks and benefits discussed, Surgical consent verified, Monitors and equipment, Site examined, Pre-op evaluation done, Time-out performed, Informed consent obtained, Questions answered/anesthesia questions answered and Allergies reviewed Anticoagulation/ Anti-thrombosis status confirmed? Yes Monitors: BP and continuous pluse ox Sedation Agents: versed, fentanyl Procedure: Block Type: Spinal Prep: Betadine Sterile Field: mask, cap/hat, sterile established and sterile gloves Approach: midline Skin localized with: lidocaine 1% 3 mL Spinal Block: Needle Gauge: 22 Needle Length: 90 mm Placement Site: L3-4 Number of Attempts: 1 CSF: free flow, aspiration before injection, aspiration during injection Spinal Local Anesthetic: Bupivacaine: 2 mL of 0.75% in dextrose Degree of difficulty: none Procedure Tolerance: tolerated well Sensory Level: T6 Motor Blockade: Yes Position post procedure: supine Vital Signs: Vital sings monitored and stable throughout. See anesthesia record for details. Staff: Anesthesia Provider: JOHNNA MONTALVO - performed the procedure Brando Garcia MD GENERAL ANESTHESIA O RDERABLES * EKG 12-LEAD (04/25/2018 10:58 AM TEACHERS' AIDE) Only the most recent of2 resultswithin the time period is included. Ventricular Rate 59 BPM [facility] Atrial Rate 59 BPM [facility] P-R Interval 196 ms [facility] QRS Duration ms 86 ms [facility] Q-T Interval ms 402 ms [facility] QTC Calculation (Bezet) 397 ms [facility] Calculated P Henriette 72 degrees [facility] Calculated R Henriette -17 degrees [facility] Calculated T Henriette 57 degrees [facility] Interpretation EKG Sinus bradycardia with sinus arrhythmia Minimal voltage criteria for LVH, may be normal variant Borderline ECG No previous ECGs available Confirmed by HUNTER SCOTT MD ([id number]) on 04/26/2018 2:45:31 PM [facility] 04/25/2018 10:5 8 AM TEACHERS' AIDE 04/26/2018 2:45 PM TEACHERS' AIDE Abram Espinoza MD ECG ORDERABLES Performing Organization Address City/[facility]/ZIP Co de Phone Number [facility] * CULTURE MSSA/MRSA (04/25/2018 10:13 AM TEACHERS' AIDE) Culture Negative for Staphylococcus aureus (MRSA/MSSA) ARTEMIO 04/27/2018 9:13 AM [facility] MICROBIOLOGY Microbiology SPECIMEN FROM NASAL FOSSAE / Unknown Collection / Unknown 04/25/2018 10:13 AM TEACHERS' AIDE 04/25/2018 12:04 PM TEACHERS' AIDE Abram Espinoza MD LAB - MICROBIOLOGY O RDERABLES Performing Organization Address City/[facility]/ZIP Co de Phone Number [facility] [address] [place], [place] [address], [facility] [phone] * CBC W AUTO DIFFERENTIAL (04/25/2018 10:13 AM TEACHERS' AIDE) Only the most recent of20 resultswithin the time period is included. WBC 4.6 4.4 - 10.7 x10E9/L 04/25/2018 12:12 PM TEACHERS' AIDE [facility] WBC Corrected x10E9/L 04/25/2018 12:12 PM TEACHERS' AIDE [facility] RBC 4.19 3.80 - 5.20 x10E12/L 04/25/2018 12:12 PM TEACHERS' AIDE [facility] Hemoglobin 12.6 12.0 - 15.6 gm/dL 04/25/2018 12:12 PM TEACHERS' AIDE [facility] Hematocrit 40.3 35.9 - 45.5 % 04/25/2018 12:12 PM TEACHERS' AIDE [facility] MCV 96.2 80.7 - 98.3 fl 04/25/2018 12:12 PM TEACHERS' AIDE [facility] MCH 30.1 .7 - 34.0 pg 04/25/2018 12:12 PM [facility] MCHC 31.3 30.8 - 35.9 gm/dL 04/25/2018 12:12 PM [facility] Platelet Count 184 153 - 416 x10E9/L 04/25/2018 12:12 PM [facility] RDW-CV 14.0 12.1 - 14.9 % 04/25/2018 12:12 PM [facility] MPV 11.6 9.4 - 12.9 fl 04/25/2018 12:12 PM [facility] Neutrophils % 61.3 44.0 - 73.0 % 04/25/2018 12:12 PM [facility] Lymphocytes % 25.1 20.0 - 43.0 % 04/25/2018 12:12 PM [facility] Monocytes % 9.5 5.0 - 13.0 % 04/25/2018 12:12 PM [facility] Eosinophils % 3.0 0.0 - 6.0 % 04/25/2018 12:12 PM [facility] Basophils % 0.9 0.0 - 2.0 % 04/25/2018 12:12 PM [facility] Immature Granulocytes 0.2 0 - 1 % 04/25/2018 12:12 PM [facility] Neutrophil Absolute 2.84 2.01 - 7.14 x10E9/L 04/25/2018 12:12 PM [facility] Lymphocytes Absolute 1.16 1.07 - 3.94 x10E9/L 04/25/2018 12:12 PM [facility] Monocytes Absolute 0.44 0.26 - 1.07 x10E9/L 04/25/2018 12:12 PM [facility] Eosinophils Absolute 0.14 0 - 0.47 x10E9/L 04/25/2018 12:12 PM [facility] Basophils Absolute 0.04 0 - 0.08 x10E9/L 04/25/2018 12:12 PM [facility] Immature Granulocytes Absolute 0.01 0.00 - 0.06 x10E9/L 04/25/2018 12:12 PM [facility] nRBC Auto 0 /100 WBC 04/25/2018 12:12 PM [facility] Blood BLOOD SPECIMEN / Unknown Venipuncture / Unknown 04/25/2018 10:13 AM TEACHERS' AIDE 04/25/2018 12:04 PM TEACHERS' AIDE Abram Espinoza MD LAB - HEMATOLOGY ORD ERABLES [facility] [address] [place] [address] * (ABNORMAL) COMPREHENSIVE METABOLIC PANEL (04/25/2018 10:13 AM [facility]) Only the most recent of15 resultswithin the time period is included. Pathologist [facility] Glucose 87 74 - 106 mg/dL 04/25/2018 12:35 PM [facility] Sodium 138 136 - 145 mmol/L 04/25/2018 12:35 PM [facility] Potassium 4.3 3.5 - 5.1 mmol/L 04/25/2018 12:35 PM [facility] Chloride 104 98 - 107 mmol/L 04/25/2018 12:35 PM [facility] CO2 32(H) 22 - 31 mmol/L 04/25/2018 12:35 PM [facility] Calcium 8.8 8.5 - 10.1 mg/dL 04/25/2018 12:35 PM [facility] Anion Gap 2(L) 8 - 16 mmol/L 04/25/2018 12:35 PM [facility] BUN 18 7 - 21 mg/dL 04/25/2018 12:35 PM [facility] Creatinine 0.82 0.50 - 1.30 mg/dL 04/25/2018 12:35 PM [facility] Alkaline Phosphatase 45 38 - 126 U/L 04/25/2018 12:35 PM [facility] ALT 24 13 - 61 U/L 04/25/2018 12:35 PM [facility] AST 32 5 - 40 U/L 04/25/2018 12:35 PM [facility] Protein Total 7.2 6.4 - 8.2 gm/dL 04/25/2018 12:35 PM [facility] Albumin 3.8 3.4 - 5.0 gm/dL 04/25/2018 12:35 PM [facility] Bilirubin Total 1.1(H) 0.2 - 1.0 mg/dL 04/25/2018 12:35 PM [facility] eGFR by MDRD >60 mL/min/1.7 3m2 04/25/2018 12:35 PM TEACHERS' AIDE [facility] eGFR by MDRD >60 mL/min/1.7 3m2 04/25/2018 12:35 PM TEACHERS' AIDE [facility] Blood BLOOD SPECIMEN / Unknown Venipuncture / Unknown 04/25/2018 10:13 AM TEACHERS' AIDE 04/25/2018 12:05 PM TEACHERS' AIDE Abram Espinoza MD LAB - CHEMISTRY JACOB ONOFRE Performing Organization Address [facility] Co de Phone Number [facility] [address] [place] [address] * (ABNORMAL) URINALYSIS W/MICROSCOPIC NO CULTURE (01/21/2017 9:07 AM CDT) Only the most recent of15 resultswithin the time period is included. Color UA YELLOW [facility]LLOW [facility] Appearance CLOUDY(A) CLEAR [facility] Specific [place] UA 1.016 1.001 - 1.035 [facility] pH Urine 5.5 5.0 - 8.0 [facility] Glucose UA NEGATIVE NEGATIVE [facility] Bilirubin UA NEGATIVE NEGATIVE [facility]) Ketone UA NEGATIVE NEGATIVE [facility] Blood UA NEGATIVE NEGATIVE [facility] Protein UA NEGATIVE NEGATIVE [facility]) Nitrite UA NEGATIVE NEGATIVE [facility]) Leukocyte Esterase NEGATIVE NEGATIVE [facility] WBC Urine 0-5 < OR = 5 /HPF [facility] RBC Urine NONE SEEN < OR = 2 /HPF [facility]) Squamous Epithelial Cells UA 0-5 < OR = 5 /HPF [facility]) Bacteria UA FEW(A) NONE SEEN /HPF [facility]) Hyaline Casts UA NONE SEEN NONE SEEN /LPF [facility]) Comment: Test Performed at: [facility] [id number] [place] [address] ABRAM NETTLES DO,MPH 01/21/2017 9:07 AM CDT 01/21/2017 9:08 AM CDT Yady Aragon MD LAB - URIN ALYSIS ORDERABLES Performing Organization Address City/[facility] Co de Phone Number [facility] ([facility]) * C-REACTIVE PROTEIN (01/21/2017 9:07 AM CDT) Only the most recent of5 resultswithin the time period is included. Pathologist [facility] C-Reactive Protein 0.46 <0.80 mg/dL [facility] Comment: Please be advised that patients taking Carboxypenicillins may exhibit falsely decreased C-Reactive Protein levels due to an analytical interference in this assay. Test Performed at: [facility] [address] [place] [address] ABRAM NETTLES DO,MPH 01/21/2017 9:07 AM CDT 01/21/2017 9:08 AM CDT Yady Aragon MD LAB - CHEM ISTRY ORDERABLES Performing Organization Address [facility] Phone Number [facility] ([facility]) * ERYTHROCYTE SEDIMENTATION RATE (01/21/2017 9:07 AM CDT) Only the most recent of9 resultswithin the time period is included. Pathologist [facility] Erythrocyte Sedimentation Rate Westergren 11 < OR = 30 mm/h [facility] ([facility]) Comment: Test Performed at: [facility] [address] DARLENE JACOBSON MD 01/21/2017 9:07 AM CDT 01/21/2017 9:08 AM CDT Yady Aragon MD LAB - DONNIE TOLOGY ORDERABLES Performing Organization Address [facility] de Phone Number [facility] [facility] ([facility]) * PT-INR U (08/17/2016 11:32 AM CDT) Only the most recent of2 resultswithin the time period is included. Pathologist [facility] PT 13.5 12.1 - 14.8 Seconds [facility] INR 1.0 See Comment [facility] Comment: Suggested therapeutic range for low-intensity coumadin therapy for venous thromboembolism prophylaxis is an INR of 2.0-3.0. For high risk patients (Mitral Valve Prosthesis, Atrial Fibrillation, history of TIA/stroke), suggested prophylactic therapeutic range is an INR of 2.5-3.5. Blood specimen (specimen) BLOOD SPECIMEN / Unknown 08/17/2016 11:32 AM CDT 08/17/2016 12:37 PM CDT Narrative [facility] - 08/17/2016 12:53 PM CDT Is patient on Heparin, Argatroban or Dabigatran?->N Hallie Sosa MD LAB - COAGULATION ORDERABLES Performing Organization Address [facility] Co de Phone Number [address] [phone] * HEPATIC FUNCTION PANEL (08/17/2016 11:32 AM CDT) [facility] Protein Total 7.6 6.0 - 8.3 g/dL [facility] Albumin 4.1 3.4 - 5.0 g/dL [facility] Bilirubin Total 1.2 0.2 - 1.2 mg/dL [facility] Bilirubin Conjugated 0.4 0.0 - 0.5 mg/dL [facility] Bilirubin Unconjugated 0.8 Unconjugated Bilirubin is a calculated value: Reference ranges have not been established. mg/dL [facility] Alkaline Phosphatase 49 40 - 150 Units/L [facility] ALT 20 0 - 55 Units/L [facility] AST 19 5 - 34 Units/L [facility] Albumin/Globulin Ratio 1.2 1.1 - 2.3 [facility] Blood specimen (specimen) BLOOD SPECIMEN / Unknown 08/17/2016 11:32 AM CDT 08/17/2016 12:37 PM CDT Hallie Sosa MD LAB - CHEMISTRY OR DERABLES Performing Organization Address [facility]/ZIP Co de Phone Number [address] [phone] * QUANTIFERON TB-GOLD (03/04/2015 8:24 AM CDT) [facility] QuantiFERON TB Gold NEGATIVE NEGATIVE [facility]) Comment: Negative test result. M. tuberculosis complex infection unlikely. QuantiFERON Nil Value 0.03 IU/mL [facility] QuantiFERON Mitogen Value 4.12 IU/mL [facility] QuantiFERON TB Antigen minus Nil value 0.00 IU/mL [facility] Comment: The Nil tube value is used to determine if the patient has a preexisting immune response which could cause a false-positive reading on the test. In order for a test to be valid, the Nil tube must have a value of less than or equal to 8.0 IU/mL. The mitogen control tube is used to assure the patient has a healthy immune status and also serves as a control for correct blood handling and incubation. It is used to detect false-negative readings. The mitogen tube must have a gamma interferon value of greater than or equal to 0.5 IU/mL higher than the value of the Nil tube. The TB antigen tube is coated with the M. tuberculosis specific antigens. For a test to be considered positive, the TB antigen tube value minus the Nil tube value must be greater than or equal to 0.35 IU/mL. For additional information, please refer to http://education.[employer]/faq/QFT (This link is being provided for informational/ educational purposes only.) REPORT COMMENT: SPLIT 03/01/2015 FROM [id number] Test Performed at: [facility] [id number] [place] [address] ABRAM NETTLES DO,MPH Blood specimen (specimen) BLOOD SPECIMEN / Unknown 03/04/2015 8:24 AM CDT 03/04/2015 8:27 AM CDT Yady Aragon MD LAB - CHEM ISTRY ORDERABLES [facility] * VITAMIN D 25-HYDROXY D2+D3 BY TANDEM MASS (03/01/2015 8:54 AM CDT) [facility] Vitamin D, 25 Hydroxy Total 38 30 - 100 ng/mL [facility]) Comment: Vitamin D Status 25-OH Vitamin D: Deficiency: <20 ng/mL Insufficiency: 20 - 29 ng/mL Optimal: > or = 30 ng/mL For 25-OH Vitamin D testing on patients on D2-supplementation and patients for whom quantitation of D2 and D3 fractions is required, the QuestAssureD(TM) 25-OH VIT D, (D2,D3), LC/MS/MS is recommended: order code 36861 (patients >2yrs). For more information on this test, go to: http://education.[employer]/faq/KRJ123 (This link is being provided for informational/educational purposes only.) REPORT COMMENT: FASTING:YES COLLECTION REQUIREMENTS NOT MET. PATIENT ADVISED TO RETURN. Test Performed at: [facility] [address] [place] [address] ABRAM NETTLES DO,MPH Blood specimen (specimen) BLOOD SPECIMEN / Unknown 03/01/2015 8:54 AM CDT 03/01/2015 8:55 AM CDT Yady Aragon MD LAB - CHEM ISTRY ORDERABLES Performing Organization Address [facility] Co de Phone Number [facility] * PROTEIN 14-3-3 BLOOD (03/01/2015 8:54 AM CDT) 14.3.3 eta Protein <0.2 <0.2 ng/mL [facility] ([facility]) Comment: This test was developed and its performance characteristics have been determined by [facility]. It has not been cleared or approved by the U.S. Food and Drug Administration. The FDA has determined that such clearance or approval is not necessary. Performance characteristics refer to the analytical performance of the test. Test Performed at: [facility] [facility] [address] [place] [address] BELIA SEVERINO MD PHD 03/01/2015 8:54 AM CDT 03/01/2015 8:55 AM CDT Yady Aragon MD LAB - CHEM ISTRY ORDERABLES Performing Organization Address [facility]/ZIP Co de Phone Number [facility] * DNA ANTIBODY DS CRITHIDIA IFA (03/01/2015 8:54 AM CDT) Pathologist [facility] dsDNA Antibody Crithidia IFA NEGATIVE NEGATIVE [facility] ([facility]) Comment: Test Performed at: [facility] [address] [place] [address] BELAI SEVERINO MD PHD 03/01/2015 8:54 AM CDT 03/01/2015 8:55 AM CDT Yady Aragon MD LAB - SERO LOGY ORDERABLES [facility] * PTH INTACT W/O CALCIUM (03/01/2015 8:54 AM CDT) Pathologist [facility] PTH 44 14 - 64 pg/mL [facility] ([facility]) Comment: Interpretive Guide Intact PTH Calcium ------- Normal Parathyroid Normal Normal Hypoparathyroidism Low or Low Normal Low Hyperparathyroidism Primary Normal or High High Secondary High Normal or Low Tertiary High High Non-Parathyroid Hypercalcemia Low or Low Normal High Test Performed at: [facility] [id number] ABRAM NETTLES DO,MPH Blood specimen (specimen) BLOOD SPECIMEN / Unknown 03/01/2015 8:54 AM CDT 03/01/2015 8:55 AM CDT Yady Aragon MD LAB - CHEM ISTRY ORDERABLES [facility] * CARLOS (SM) ANTIBODY CHUNG (03/01/2015 8:54 AM CDT) Pathologist [facility] CHUNG Carlos (SM) Antibody <1.0 NEG <1.0 NEG AI [facility] ([facility]) Comment: Test Performed at: [facility] [id number] ABRAM NETTLES DO,MPH Blood specimen (specimen) BLOOD SPECIMEN / Unknown 03/01/2015 8:54 AM CDT 03/01/2015 8:55 AM CDT Yady Aragon MD LAB - CHEM ISTRY ORDERABLES Performing Organization Address [facility] Co de Phone Number [facility] * FOREIGN EXCHANGE TRADER ANTIBODY (03/01/2015 8:54 AM CDT) CHUNG FOREIGN EXCHANGE TRADER Antibody <1.0 NEG <1.0 NEG AI [facility]) Comment: Test Performed at: [facility] [id number], [email or web address] [address] ABRAM NETTLES DO,MPH Blood specimen (specimen) BLOOD SPECIMEN / Unknown 03/01/2015 8:54 AM CDT 03/01/2015 8:55 AM CDT Yady Aragon MD LAB - CHEM ISTRY ORDERABLES Performing Organization Address [facility] de Phone Number [facility] * RHEUMATOID FACTOR BLOOD QUANTITATIVE (03/01/2015 8:54 AM CDT) Pathologist [facility] Rheumatoid Factor 12 <14 IU/mL [facility] ([facility]) Comment: Test Performed at: [facility] [address] [employer], [email or web address] [address] ABRAM NETTLES DO,MPH Blood specimen (specimen) BLOOD SPECIMEN / Unknown 03/01/2015 8:54 AM CDT 03/01/2015 8:55 AM CDT Yady Aragon MD LAB - CHEM ISTRY ORDERABLES [facility] * SONIA BLOOD SCREEN W/REFLEX TITER (03/01/2015 8:54 AM CDT) Pathologist [facility] SONIA Screen NEGATIVE NEGATIVE [facility] ([facility]) Comment: Test Performed at: [facility] [address] [employer], [email or web address] [address] ABRAM NETTLES DO,MPH Blood specimen (specimen) BLOOD SPECIMEN / Unknown 03/01/2015 8:54 AM CDT 03/01/2015 8:55 AM CDT Yady Aragon MD LAB - CHEM ISTRY ORDERABLES Performing Organization Address [facility] Co de Phone Number [facility] * SS-A/SS-B (SJOGRENS) ANTIBODY PANEL (03/01/2015 8:54 AM CDT) Sjogren's Antibodies (SSA) <1.0 NEG <1.0 NEG AI [facility]) Sjogren's Antibodies (SSB) <1.0 NEG <1.0 NEG AI [facility] ([facility]) Comment: Test Performed at: [facility] [id number] ABRAM NETTLES DO,MPH 03/01/2015 8:54 AM CDT 03/01/2015 8:55 AM CDT Yady Aragon MD LAB - CHEM ISTRY ORDERABLES Performing Organization Address [facility] de Phone Number [facility] * DNA ANTIBODY DOUBLE STRANDED (03/01/2015 8:54 AM CDT) dsDNA Antibody <1 IU/mL [facility]) Comment: IU/mL Interpretation < or = 4 Negative 5-9 Indeterminate > or = 10 Positive Test Performed at: [facility] [id number] ABRAM NETTLES DO,MPH Blood specimen (specimen) BLOOD SPECIMEN / Unknown 03/01/2015 8:54 AM CDT 03/01/2015 8:55 AM CDT Yady Aragon MD LAB - DONNIE TOLOGY ORDERABLES Performing Organization Address [facility]/ZIP Co de Phone Number [facility] * CYCLIC CITRUL PEPTIDE AB IGG (CCP) (03/01/2015 8:54 AM CDT) Cyclic Citrullinated Peptide Antibody <16 UNITS [facility] ([facility]) Comment: Reference Range Negative: <20 Weak Positive: 20-39 Moderate Positive: 40-59 Strong Positive: >59 Test Performed at: [id number] [place] [address] ABRAM NETTLES DO,MPH Blood specimen (specimen) BLOOD SPECIMEN / Unknown 03/01/2015 8:54 AM CDT 03/01/2015 8:55 AM CDT Yady Aragon MD LAB - CHEM ISTRY ORDERABLES Performing Organization Address [facility]/ZIP Co de Phone Number [facility] ([facility]) * HEPATITIS B CORE ANTIBODY (03/01/2015 8:54 AM CDT) Hepatitis B Core Virus Antibody Total NON-REACTI VE NON-REACT MORENITA [facility] Comment: Test Performed at: [employer] [facility] [place] [address] ABRAM NETTLES DO,MPH Blood specimen (specimen) BLOOD SPECIMEN / Unknown 03/01/2015 8:54 AM CDT 03/01/2015 8:55 AM CDT Yady Aragon MD LAB - CHEM ISTRY ORDERABLES Performing Organization Address [facility] de Phone Number [facility] ([facility] * HEPATITIS B SURFACE ANTIGEN W RFLX CONFIRMATION (03/01/2015 8:54 AM CDT) Hepatitis B Virus Surface Antigen NON-REACTI VE NON-REACT MORENITA [facility] Comment: Test Performed at: [employer] [facility] [place] [address] ABRAM NETTLES DO,MPH Blood specimen (specimen) BLOOD SPECIMEN / Unknown 03/01/2015 8:54 AM CDT 03/01/2015 8:55 AM CDT Yady Aragon MD LAB - CHEM ISTRY ORDERABLES [facility] * TSH (03/01/2015 8:54 AM CDT) Pathologist [facility] TSH 1.79 0.40 - 4.50 mIU/L [facility] ([facility]) Comment: Test Performed at: [facility] [address] [place] [address] ABRAM NETTLES DO,MPH Blood specimen (specimen) BLOOD SPECIMEN / Unknown 03/01/2015 8:54 AM CDT 03/01/2015 8:55 AM CDT Yady Aragon MD LAB - CHEM ISTRY ORDERABLES Performing Organization Address [facility] Phone Number [facility] * HEPATITIS C ANTIBODY (03/01/2015 8:54 AM CDT) Pathologist [facility] Hepatitis C Antibody NON-REACTI VE NON-REACT MORENITA [facility] Signal/Cutoff 0.08 <1.00 [facility] ([facility]) Comment: Test Performed at: [facility] [address] [address] ABRAM NETTLES DO,MPH Blood specimen (specimen) BLOOD SPECIMEN / Unknown 03/01/2015 8:54 AM CDT 03/01/2015 8:55 AM CDT Yady Aragon MD LAB - CHEM ISTRY ORDERABLES Performing Organization Address [facility] Phone Number [facility] * PATHOLOGY TISSUE (02/02/2014 9:45 AM CDT) Only the most recent of3 resultswithin the time period is included. Pathologist [facility] Surgical Pathology Tissue CLINICAL HISTORY: There is no history provided on the accompanying specimen requisition. FINAL DIAGNOSIS: GALLBLADDER, CHOLECYSTECTOMY: -CHRONIC CHOLECYSTITIS -CHRONIC CHOLELITHIASIS (GROSS ONLY) GROSS DESCRIPTION: The specimen is received in formalin, labeled Emert, Rosaura S and gallbladder permanent path . It consists of a previously-opened 8.2 x 3.5 x 0.4 cm gallbladder with a clipped 0.4 cm in external diameter cystic duct resection margin. The serosal surface is rivero-green, slightly wrinkled and glistening. The wall thickness ranges from 0.2 to 0.4 cm. Within the specimen container is a 3.2 x 2.4 x 0.6 cm aggregate of hard, green, multifaceted calculi and a moderate amount of viscous, dark green bile. The mucosal surface of the specimen is pale green, velvety and glistening. No mucosal lesions are identified. The cystic duct lymph node is not identified. Human Resources Assistant Manager sections to include the cystic duct resection margin (en face), body and fundus are submitted in cassette A1. EW/edk MICROSCOPIC DESCRIPTION: Review of the gallbladder permanent path slides show biliary mucosa and submucosa with areas of focal mural chronic inflammation. No cholesterolosis is identified. Sg/MH The performance characteristics of all immunohistochemical and indirect immunofluorescence stains (if any) cited in this report were determined by the Histopathology Laboratory of [facility]. Some of these tests were developed by our own laboratory and have not been cleared or approved by the US Food and Drug Administration. The FDA does not require this test to go through premarket FDA review. These tests are used for clinical purposes. They should not be regarded as investigational or for research. This laboratory is certified under the Clinical Laboratory Improvement Amendments (CLIA) as qualified to perform high complexity clinical laboratory testing. This case has been personally reviewed and interpreted by the attending (teaching) pathologist. Final Diagnosis performed by Yahaira Tsai M.D. Electronically signed 02/05/2014 [facility] ([facility]) Other (qualifier value) 02/02/2014 9:45 AM CDT 02/02/2014 12:27 PM CDT Narrative [facility] ([facility]) - 02/05/2014 5:12 PM CDT Collection Date->02/02/14 Collection Time-> 9:45 AM Specimen A->Gallbladder Perm path Lucy Collado MD LAB - PATHOLOGY/CYTO LOGY ORDERABLES [facility] ([facility]) * PTT [facility] (01/16/2014 1:39 PM CDT) APTT 28.7 23.0 - 38.4 Seconds [facility] Comment:Suggested therapeuti c range for full dose I.V. heparin therapy for venous thromboembolism is 66.0-91.0 seconds. Blood specimen (specimen) BLOOD SPECIMEN / Unknown 01/16/2014 1:39 PM CDT 01/16/2014 1:56 PM CDT Narrative [facility] - 01/16/2014 2:23 PM CDT Is patient on Heparin, Argatroban or Dabigatran?->N Lucy Collado MD LAB - COAGULATION OR DERABLES Performing Organization Address [facility]/ZIP Co de Phone Number [address] [phone] * CULTURE URINE (01/16/2014 1:39 PM CDT) Culture Urine No Growth of >=100 CFU/ml after 48 Hours [facility] Urine specimen (specimen) URINE / Unknown 01/16/2014 1:39 PM CDT 01/16/2014 1:56 PM CDT Narrative [facility] - 01/18/2014 2:54 PM CDT Specimen Type->Urine Lucy Collado MD LAB - MICROBIOLOGY O RDERABLES Performing Organization Address [facility] Co de Phone Number [address] [phone] * MRI ABDOMEN W MRCP WWO CONT W3D (02/10/2013 11:15 AM CDT) Anatomical Region Laterality Modality Other Impressions 02/10/2013 2:42 PM CDT Impression: 1. No findings to suggest primary sclerosing cholangitis. 2. Cholelithiasis without biliary dilatation. 3. Mild splenomegaly. This report was approved by Jt Capps M.D. on 02/10/2013 2:42 PM . I, Dr. LILIA STOKES M.D. have personally reviewed and interpreted this examination/study. This report was electronically signed by LILIA STOKES M.D. on 02/10/2013 2:42 PM . Narrative 02/10/2013 2:42 PM CDT MRI abdomen with and without contrast History: Elevated liver enzymes. Ulcerative colitis. Technique: Single shot fast spin-echo T2: Coronal, axial. Single shot fast spin-echo T2 fat-sat: Axial. Diffusion: Axial. In phase and out of phase: Axial. MRCP with 3-Dimensional postprocessing on a dedicated 3-D workstation. Dynamic axial. Contrast: 7.5 ml [facility]avist Findings: No prior studies are available for comparison. The lung bases are clear. The liver measures 19.9 cm in craniocaudal dimension. There is no evidence of hepatic steatosis. No arterial enhancing focal intrahepatic lesion is visible. Multiple gallbladder calculi are seen. The intrahepatic and extrahepatic bile ducts are not dilated. The portal vein and its major branches are patent. Conventional hepatic arterial anatomy is present. The pancreas has normal signal intensity without evidence of peripancreatic fluid. The spleen is enlarged. The adrenal glands are normal. The kidneys are normal. The bowel loops are normal. No free intraperitoneal fluid is visible. A lumbar levoscoliosis present. MRCP with 3-Dimensional reconstructions: Multiple gallbladder calculi are seen. The biliary tree is nondilated. Procedure Note Provider, MD Dario - 08/29/2017 MRI abdomen with and without contrast History: Elevated liver enzymes. Ulcerative colitis. Technique: Single shot fast spin-echo T2: Coronal, axial. Single shot fast spin-echo T2 fat-sat: Axial. Diffusion: Axial. In phase and out of phase: Axial. MRCP with 3-Dimensional postprocessing on a dedicated 3-D workstation. Dynamic axial. Contrast: 7.5 ml Gadavist Findings: No prior studies are available for comparison. The lung bases are clear. The liver measures 19.9 cm in craniocaudal dimension. There is no evidenceof hepatic steatosis. No arterial enhancing focal intrahepatic lesion isvisible. Multiple gallbladder calculi are seen. The intrahepatic and extrahepaticbile ducts are not dilated. The portal vein and its major branches are patent. Conventional hepaticarterial anatomy is present. The pancreas has normal signal intensity without evidence ofperipancreatic fluid. The spleen is enlarged. The adrenal glands arenormal. The kidneys are normal. The bowel loops are normal. No free intraperitoneal fluid is visible. Alumbar levoscoliosis present. MRCP with 3-Dimensional reconstructions: Multiple gallbladder calculi are seen. The biliary tree is nondilated. IMPRESSION Impression: 1. No findings to suggest primary sclerosing cholangitis. 2. Cholelithiasis without biliary dilatation. 3. Mild splenomegaly. This report was approved by Jt Capps M.D. on 02/10/2013 2:42 PM. I, Dr. LILIA STOKES M.D. have personally reviewed and interpreted thisexamination/study. This report was electronically signed by LILIA STOKES M.D. on 02/10/20132:42 PM . Dwain Kong MD MR ORDERABLES * CREATININE BLOOD - POCT (IP) [facility] (05/31/1998 12:00 AM TEACHERS' AIDE) Creatinine POCT 0.93 0.3 - 1.3 mg/dL [facility] eGFR POCT 60 60 ml/min [facility] 05/31/1998 Sam Alva MD LAB - POINT OF CARE ORDERABLES [facility] Care Teams Assembly Detailer Relationship Specialty Start Date End Date [facility] [address] [place] [address] PCP - General 11/17/18 [place] [id number] [address] Orthopedic Surgery 03/15/18
--- OUTSIDE RECORDS SUMMARY | 2024-07-18 14:52 | XMS_ITS | Clinical Summary ---
Author Organization [facility] Address [address] [place] [address] Care Team Providers Care Form Setter [employer] Forms Name Role Phone Gabo Espinoza MD Unavailable [phone] Primary Care Prov ider Source Comments [facility],non-owned Affiliates and Associated Physician Practices is amultiple site organization consisting of ambulatory clinics and hospital sitesin [place], [place], [place] and [place]. This disclosure is being madepursuant to the Care Everywhere program and may not contain all information available regarding this patient. Last updated 18.[facility] Allergies Active Allergy Reactions Criticality Noted Date [...] Zoster Hzv Vacc Recombinant Inj Im 06/21/2018, Family History Medical History Relation Name Comments Diabetes Brother 1 from meds Hypertension Brother 2 Kidney Disease Brother 3 Inflammatory Bowel Disease Brother 4 Crohn's Disease Brother 5 Anemia Daughter 1 Status: Alive Crohn's Disease Daughter 2 Status: Aliv e None Known Father Status: d None Known Mother Status: d Hypertension Other 1 Hypertension Other 2 Grandmother Crohn's Disease Other 3 grand daugth er Hypertension Sister Anemia Son 1 Status: Alive Crohn's Disease Son 2 Inflammatory Bowel Disease Son 3 Psoriasis Neg Hx Relation Name Status Comments Brother 1 Brother 2 Brother 3 Brother 4 Brother 5 Daughter 1 Daughter 2 Father Mother Other 1 Other 2 Other 3 Sister Son 1 Son 2 Son 3 Social History Tobacco Use Types Packs/Day Years [...] Comments Blood Pressure 124/63 05/03/2023 12:24 PM DANCING INSTRUCTOR Pulse 72 05/03/2023 12:24 PM DANCING INSTRUCTOR Temperature 36.6 C (97.8 F) 05/03/2023 12:24 PM DANCING INSTRUCTOR Respiratory Rate 18 04/30/2022 10:21 AM DANCING INSTRUCTOR Oxygen Saturation 100% 05/03/2023 12:24 PM DANCING INSTRUCTOR Inhaled Oxygen Concentration - - Weight 74.4 kg (164 lb) 05/03/2023 12:24 PM DANCING INSTRUCTOR Height 162.6 cm (5' 4 ) 05/03/2023 12:24 PM DANCING INSTRUCTOR Body Mass Index 28.15 05/03/2023 12:24 PM DANCING INSTRUCTOR Plan of Treatment Health Maintenance Due Date Last Done Comments BONE DENSITY TESTING 1940 Respiratory Syncytial Virus (RSV) Vaccine Pt: or over 60 yrs (1 - 1-dose 75+ series) 2013 PNEUMOCOCCAL VACCINE 50+ (2 of 2 - PCV) 05/02/2021 05/02/2020, 03/04/1999 COVID-19 VACCINE ( - season) 2024 03/29/2021, 07/25/2020, 06/27/2020 INFLUENZA VACCINE (#1) 2024 3, 03/11/2021, 03/01/2020, Additional history exists DEPRESSION SCREENING 05/31/2024 MEDICARE AWV CALENDAR YEAR 2024 DTAP/TDAP/TD VACCINES (4 - Td or Tdap) 05/02/2030 05/02/2020, 11/08/2008, 03/04/1999 ZOSTER VACCINE Completed 06/21/2018, 01/29, 03/09/2008 HEPATITIS B VACCINE Aged Out No longe r eligible based on patient's age to complete this topic HIB VACCINE Aged Out No longer eligi ble based on patient's age to complete this topic HPV VACCINE Aged Out No longer eligi ble based on patient's age to complete this topic MENINGOCOCCAL (Group B) VACCINE Aged Out No longer eligible based on patient's age to complete this topic MENINGOCOCCAL VACCINE Aged Out No kobi cinda eligible based on patient's age to complete this topic Goals Goal Patient Goal Type Associated Problems Recent Progress Patient-Stated? Author Medication Management General On track( 023 12:36 PM DANCING INSTRUCTOR) Abbey Alonso RN Note: Expected end date: ongoing Interventions: Take all medications as prescribed Let your doctor know right away about any changes in your medications Make sure to request a refill of your medication at least one week prior to your last dose Medical Devices Implanted Type Area Oxygen Plant Operator Device Identifier Shelf Expiration Date Model / Serial / Lot Cmnt Bone Cblt 40gm Hvisc Strl Implanted:Qty: 1 on 05/18/2018 by Gabo Espinoza MD at [facility] Left: Knee [employer] 12/22/2018 [id number] / / [id number] Cmpnt Ptlr 28mm 1 Pg Wire Ascnt Arcm Kn - [id number] Implanted:Qty: 1 on 05/18/2018 by Gabo Espinoza MD at [facility] Left: Knee [employer] 04/27/2023 [id number] / [id number] / Cmpnt Fem Kn Lt Cr Cmnt Prm Vngrd Intlk Implanted:Qty: 1 on 05/18/2018 by Gabo Espinoza MD at [facility] Left: Knee [employer] 04/18/2028 [id number] / / [id number] Tray Tib 67mm Kn Cocr I Beam Implanted:Qty: 1 on 05/18/2018 by Gabo Espinoza MD at [facility] Left: Knee [employer] 03/18/2028 [id number] / / [id number] Brng [id number] Vngrd Arcm Kn Ant Stab Implanted:Qty: 1 on 05/18/2018 by Gabo Espinoza MD at [facility] Left: Knee [employer] 02/16/2023 [id number] / / [id number] Advance Directives * Full Code (Latest Code Status on File) Date Activated Date Inactivated Comments 05/18/2018 10:31 AM 05/21/2018 2:08 PM Care Teams Form Setter Metal [employer] Forms Relationship Specialty Start Date End Date [address] [facility] [address] [place] [address] PCP - General 11/17/18 [place] [id number] [facility] [address] OM[address] [place] [id number] Orthopedic Surgery 03/15/18
--- OUTSIDE RECORDS SUMMARY | 2024-07-18 14:53 | XMS_ITS | Continuity of Care Document ---
Author Organization [facility] Address [address] [place] [address] [address] [place] [address] Phone Care Team Providers Care Cat Tender Name Role Phone Polanco OD, Harsh Unavailable Unavailable Advance Directives Directive Yes / No Effective Date File Name No Information Encounters Encounter Description Practice Location Reason(s) For Visit Diagnoses Date Provider Providers Copied on Encounter formerly [facility], [id number] [place] [address] [address], [place], [place], [id number], [place] tel:[phone] [facility] No Information Dec-1 6-200 4 Polanco OD Harsh. [address] , [address], [place], [address], [place]. tel:[phone] Family History Family Member Type Diagnosis Age At Onset No Information Payers Payer name Insurance type Covered libertarian ID Authoriza tion(s) Medicare [facility] [id number] For Life Mdcr Supp CI [id number] Social History Type Description Quantity Date Captured Comments Sex Female Smoking Status No Information Chief Complaint And Reason For Visit No Information Reason For Referral Reason For Referral No Information History Of Present Illness Encounter Date Complaint History Of Prese nt Illness No Information Functional Status Date Functional Assessmen t No Information Instructions Date Instruction Additional Infor mation No Information Assessments Type Assessment Date No Information Patient Care Teams Name Effective Dates (start - stop) Status Members No Information
--- OUTSIDE RECORDS SUMMARY | 2024-07-18 14:53 | XMS_ITS | Clinical Summary ---
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 Name Role Phone Mirtha Vila NP Unavailable Carlos Colon MD Unavailable Alin Hale DO Unavailable [phone] Alin Hale DO Primary Care Provider [phone] Allergies Active Allergy Reactions Criticality Noted Date Comments Erythromycin Unknown 02/01/2024 Reaction(s): Unknown; Note: GI DISTRESS Meloxicam Edema Medium 10/29/2010 Nitrofurantoin Unknown 02/01/2024 Reaction(s): Unknown; Note: SEVERE REACTION PER PATIENT Penicillins Rash Medium 01/18/2013 ampicillin Medications calcium carbonate (CALCIUM 600) 1,500 mg (600 mg of elemental calcium) tablet take 1 by Oral route 2 times every day 0 [address] (NexIUM) 20 mg capsule Take 1 capsule (20 mg total) by mouth daily before breakfast Active multivitamin capsule Take 1 capsule by mouth daily Active omeprazole (PriLOSEC) 20 mg capsule 3 Active simvastatin (ZOCOR) 10 mg tablet Take 1 tablet (10 mg total) by mouth nightly Active Jardiance 10 mg tablet Take 1 tablet (10 mg total) by mouth daily 90 tablet 4 Active acetaminophen 500 mg capsule Take 2 capsules (1,000 mg total) by mouth every 6 (six) hours as needed for pain 4 Active prednisoLONE acetate (PRED FORTE) 1 % ophthalmic suspension Administer 1 drop into both eyes every other day 4 Active spironolactone (ALDACTONE) 25 mg tablet Take 0.5 tablets (12.5 mg total) by mouth daily 45 tablet 4 Active apixaban (ELIQUIS) 5 mg tabletIndication s:atrial fibrillation Take 1 tablet (5 mg total) by mouth 2 (two) times a day 180 tablet 4 Active amiodarone (PACERONE) 200 mg tablet Take 1 tablet (200 mg total) by mouth daily 90 tablet 4 025 Active amLODIPine (NORVASC) 10 mg tablet Take 1 tablet (10 mg total) by mouth daily 90 tablet 4 Active furosemide (LASIX) 20 mg tablet TAKE 1 TABLET(20 MG) BY MOUTH DAILY 90 tablet 2 4 Active pregabalin (LYRICA) 75 mg capsuleIndicatio ns:Postoperative Acute Pain Take 1 capsule (75 mg total) by mouth 2 (two) times a day 60 capsule 5 5 025 Active gabapentin (NEURONTIN) 100 mg capsule Take 2 capsules (200 mg total) by mouth 3 (three) times a day 180 capsule 11 5 025 Discontin ued(Alter tamar therapy) Active Problems Problem Noted Date Diagnosed Date Anemia 05/04/2024 Trigger finger of thumb 05/04/2024 Acquired trigger finger 05/04/2024 Partial thickness rotator cuff tear 05/04/2024 Esophageal reflux 05/04/2024 Disorder of shoulder 05/04/2024 Disorder of sacrum 05/04/2024 Cough 05/04/2024 Localized swelling of both lower legs 05/04/2024 Muscle weakness of extremity 05/04/2024 Osteopenia 05/04/2024 Chondrocalcinosis due to pyrophosphate crystals 05/04/2024 Primary localized osteoarthrosis of shoulder reg ion 05/04/2024 Rotator cuff tendinitis 05/04/2024 Dysphagia 03/30/2024 Assessment & Plan (03/31/2024 1:55 PM CDT): - Speech therapy consult - Mechanical soft diet - MBS (03/31): advanced to regular diet Pain of right scapula 03/27/2024 Assessment & Plan (03/27/2024 1:56 PM CDT): Reports that she fell onto her right shoulder. Complains of R shoulder pain, abduction limited by pain. R scapula TTP. - R shoulder xr/R scapula xr (03/27): No evidence of right shoulder or scapular fracture, moderate glenohumeral joint osteoarthritis with extensive Chondrocalcinosis - continue PT/OT Hypokalemia 03/27/2024 Assessment & Plan (03/28/2024 3:26 PM CDT): - Potassium (03/27): 3.5mmol/L - 03/27: replete Potassium Phos - Potassium (03/28): 3.6mmol/L - 03/28: replete Potassium - continue to trend potassium Acute traumatic pain 03/22/2024 Assessment & Plan (03/30/2024 1:51 PM CDT): - Tylenol 1g q6h - Robaxin 500mg TID - Gabapentin 100mg TID - Oxycodone 5mg q4h PRN Discharge planning issues 03/22/2024 Assessment & Plan (03/31/2024 1:50 PM CDT): - 03/22: awaiting PT/OT evaluation, awaiting definitive plan from Neurosurgery Spine - 03/23: patient returned to OR for additional spine surgery - 03/24: S/p Extension of fusion to C5 and Left C6/7 foraminotomy with removal of bone chip Extubated in SICU to 1L NC - 03/25-03/26: Pending placement. - 03/27: anticipate drain removal- Patient is medically stable for discharge, SW/CM updated. Discharge pending insurance authorization Anticipate discharge on 03/28 - 03/28: P2P performed w/o success. Appeal pending. - 03/29-03/30: Appeal pending Patient is medically stable for discharge, SW/CM updated. Discharge pending insurance authorization - 11/1: discharge to SNF Acute blood loss anemia 03/22/2024 Assessment & Plan (03/28/2024 3:24 PM CDT): - Hgb (03/20): 11.7g/dL - Hgb (03/21): 11.3g/dL - Hgb (03/22): 10.9g/dL - Hgb (03/23): 9.6g/dL - Hgb (03/24): 9.4g/dL - Hgb (03/25): 8.8g/dL - Hgb (03/26): 8.7g/dL - Hgb (03/27): 9.3g/dL - Hgb (03/28): 9.9g/dL Closed displaced fracture of sixth cervical vert ebra 03/20/2024 Assessment & Plan (03/31/2024 10:56 AM CDT): - Neurosurgery Spine consult - MRI cspine (03/21): Unstable cervical spine fractures involving C6 and C7 anterior and posterior elements, better seen on earlier CT, 4 mm of post traumatic anterolisthesis of C6 on C7 with jumped left C6-C7 facet and widening of the right facet at this level, also better seen on earlier CT, rupture of the anterior longitudinal ligament, posterior longitudinal ligament and ligamentum flavum at the level of C6-C7, associated anterior prevertebral hematoma and/or edema extending from at least C6-C7 to T5, possible small ventral epidural hematoma at the level of C6 without significant spinal canal stenosis, T2/STIR hyperintense signal in the paraspinal soft tissues along posterior elements of the cervical spine, with suspected injury of posterior ligamentous complex - s/p C5-T1 posterior spinal fusion, C6-7 Left-sided foraminotomy, SPINAL CORD MONITORING (Bilateral) (03/21) - Jocelyn Gonzalez at all times - cervical spine xr (03/21): posterior instrumented C6-T2 fusion in expected position, moderate multilevel thoracic degenerative disc disease with mild hyperkyphosis and diffuse osteopenia. - PT/OT - 03/23: s/p Extension of fusion to C5 and Left C6/7 foraminotomy with removal of bone chip - vanc/ancef while drains in - Activity Restrictions: [place] AAT - Imaging required: Cervical Spine Xrays - 03/27: discontinue back drain per Neurosurgery Spine - 03/30: patient complained of bilateral hand numbness- Gabapentin started Follow up with neurosurgery: 2 week wound check, 6 week upright XR. 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 01/25/2023 Subclinical hyperthyroidism 01/07/2023 Assessment & Plan (01/07/2023 4:54 PM CDT): In a patient with multinodular goiter, on treatment with amiodarone Will repeat TFTs including TSH, free T4 and free T3 as well as TPO antibodies As long as the TSH stays over 0.1- 0.2, and TSH and free T4 and free T3 stay within normal range, there is no indication for pharmacological intervention The patient agreed Multinodular goiter 01/07/2023 Assessment & Plan (01/07/2023 5:02 PM CDT): See ultrasound report Repeat ultrasound in a year Pain of right hip joint 08/28/2022 Trochanteric bursitis of left hip 08/28/2022 Pain of right sacroiliac joint 07/15/2022 Trochanteric bursitis of right hip 07/15/2022 Chronic heart failure with p reserved ejection fraction (CMS/HCC) 06/08/2022 Assessment & Plan (03/28/2024 3:25 PM CDT): - Hold Lasix 20mg daily - Hold Spironolactone - Hold Jardiance - 03/28: resume Lasix 20mg daily Chronic anticoagulation 03/17/2022 Osteoarthritis of hip 09/15/2021 Mixed hyperlipidemia 05/05/2021 Assessment & Plan (03/22/2024 10:27 AM CDT): - Continue Simvastatin 10mg HS Presence of left artificial knee joint 0 Primary osteoarthritis of left knee 03/15/2018 Diarrhea, unspecified 01/21/2016 Pulmonary hypertension (CMS/HCC) 12/11/2015 Overview (09/03/2016): Pulmonary HTN DULCE on CPAP 12/11/2015 Overview (09/03/2016): DULCE on CPAP Aortic valve stenosis 12/11/2015 Overview (09/03/2016): Aortic stenosis, mild Benign hypertension 10/07/2015 Overview (09/03/2016): HTN (hypertension), benign Assessment & Plan (03/22/2024 10:26 AM CDT): - Hold Norvasc 10mg daily Rheumatoid arthritis 10/07/2015 Overview (09/03/2016): Rheumatoid arthritis, involving unspecified site, unspecified rheumatoid factor presence 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/2015 Other specified disorders of bone density and structure, unspecified site 08/27/2015 Ulcerative colitis 01/30/2014 Overview (09/03/2016): Ulcerative colitis Heart murmur 01/30/2014 Overview (09/03/2016): Murmur, cardiac Preoperative state 01/30/2014 Overview (09/03/2016): Preoperative cardiovascular examination Dyspnea on exertion 01/30/2014 Overview (09/03/2016): FENG (dyspnea on exertion) Calculus of gallbladder with out cholecystitis without obstruction 02/21/2013 Resolved Problems Problem Noted Date Diagnosed Date Resolved Date Persistent atrial fibrillation 03/17/2022 02/01/2024 Dyslipidemia 02/27/2014 05/05/2021 Overview (09/03/2016): Dyslipidemia Encounters Date Type Department Care Team Description 07/06/2024 3:00 PM DISTRICT WIRE CHIEF Office Visit [facility] Cardiology [address] [place] [phone] Mirtha Vila NP Acute deep vein thrombosis (DVT) of left peroneal vein (HCC) (Primary Dx); Injury of left posterior tibial vein, initial encounter; Chronic anticoagulation 07/05/2024 Telephone [facility] Cardiology [address] [facility] [address] [place] [phone] Everardo Kilpatrick MD 06/15/2024 2:00 PM DISTRICT WIRE CHIEF Office Visit [address] Office [facility] [address] [place] [phone] Maryjo Morfin MD Unilateral dislocation of C6-C7 facet joint, subsequent encounter (Primary Dx) 06/15/2024 1:30 PM DISTRICT WIRE CHIEF - 06/15/2024 11:59 PM DISTRICT WIRE CHIEF Hospital Encounter [facility] [address] [place] [address] [place] [phone] Closed displaced fracture of sixth cervical vertebra with routine healing, unspecified fracture morphology, subsequent encounter Discharge Disposition: Discharge to home or self care 06/15/2024 Orders Only [facility] Neurosurgery [address] [place] [address] Office [facility] [address] [place] [phone] Maryjo Morfin MD Closed displaced fracture of sixth cervical vertebra with routine healing, unspecified fracture morphology, subsequent encounter (Primary Dx) 06/09/2024 Orders Only [facility] Neurosurgery [address] [place] [address] Office [facility] [address] [place] [phone] Maryjo Morfin MD Closed displaced fracture of sixth cervical vertebra with routine healing, unspecified fracture morphology, subsequent encounter (Primary Dx) 05/05/2024 Orders Only [facility] Neurosurgery [address] Medical Office Building [address] [place] [address] Maryjo Morfin MD Closed displaced fracture of sixth cervical vertebra with routine healing, unspecified fracture morphology, subsequent encounter (Primary Dx) 05/05/2024 Telephone [facility] Neurosurgery [facility] 6th [place] [address] [place] [address] Maryjo Morfin MD 05/04/2024 2:00 PM DISTRICT WIRE CHIEF Office Visit [facility] Neurosurgery [facility] Medical Office Building 4 [address] [place] [address] Maryjo Morfin MD Closed displaced fracture of sixth cervical vertebra with routine healing, unspecified fracture morphology, subsequent encounter (Primary Dx) 05/04/2024 1:15 PM DISTRICT WIRE CHIEF - 05/04/2024 11:59 PM DISTRICT WIRE CHIEF Hospital Encounter [facility] [address] [place] [address] [address] [place] [phone] Closed displaced fracture of sixth cervical vertebra with routine healing, unspecified fracture morphology, subsequent encounter Discharge Disposition: Discharge to home or self care 05/04/2024 Orders Only [facility] Neurosurgery [address] [place] [address] Office [facility] 4 [address] [place] [address] Maryjo Morfin MD Cervical vertebral fusion (Primary Dx) 04/18/2024 Orders Only [facility] Neurosurgery [address] [place] [address] Office [facility] [address] [place] [phone] Dallas Wyatt MD Closed displaced fracture of sixth cervical vertebra with routine healing, unspecified fracture morphology, subsequent encounter (Primary Dx) from Last 3 Months Immunizations Immunization Administration Dates Next Due Influenza, Quadrivalent, Spl it, Preservative Free, Intramuscular 03/11/2018 Influenza, Split 03/04/2009 Influenza, Trivalent, High D ose, Split, Preservative Free, Intramuscular 03/21/2019,02/09/2017,03/18/2016,05/12 Influenza, Trivalent, IM (MDV) 4,03/20/2013,03/25/2012,03/03 Influenza, Unspecified 03/18/2023,03/11/2021,07/2019 Influenza, Whole 03/29/2002,04/01/2001 Moderna SARS-CoV-2 Monovalen t Vaccination (12+ YRS) 03/29/2021 PPD TEST 01/14/2009, 5,11/12/1999,01/10 Pneumococcal Conjugate PCV 13 10/29/2016, 015 Pneumococcal Polysaccharide PPV23 05/02/2020,09/1998 Td, adsorbed 05/02/2020,03/04/1999 Tdap 11/08/2008 ZOSTER LIVE 03/09/2008 ZOSTER Recombinant 06/21/2018,02/08/2018 Surgical History Surgery Date Site/Laterality Comments EXCISIONAL HEMORRHOIDECTOMY CATARACT EXTRACTION CARPAL TUNNEL RELEASE CORNEAL TRANSPLANT SHOULDER SURGERY APPENDECTOMY November 2007 CATARACT EXTRACTION COLON SURGERY November 2007 FRACTURE SURGERY Right arm 1947 CHOLECYSTECTOMY January 2014 JOINT REPLACEMENT left knee April 2017 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 Medical History Medical History Date Comments Ulcerative colitis (HCC) Ulcerat ishan colitis; Comments: WAD 01/30/2014 - Ulcerative colitis (HCC) Arthritis Hypertension Hyperlipidemia Sleep apnea Heart disease February 2022 Family History Medical History Relation Name Comments Arthritis Brother 1 Bill Cuellar Hypertension Brother 1 Bill Cuellar Arthritis Brother 2 Giancarlo Cuellar Crohn's disease Brother 2 Giancarlo Cuellar Diabetes Brother 2 Giancarlo Cuellar Hypertension Brother 2 Giancarlo Cuellar Liver disease Father Heart disease Maternal Grandmother Robinson Vazquez Other Other No family histo ry of Coronary artery disease; COPD Sister Adelaide Cates Cancer Sister Adelaide Cates Hypertension Sister Adelaide Cates Relation Name Status Comments Brother 1 Bill Cuellar Brother 2 Giancarlo Cuellar Father (Age 63) Maternal Grandmother Robinson Vazquez Mother (Age 31) Other Sister Adelaide Cates Social History Tobacco Use Types Packs/Day Years Used Date Smoking Tobacco: Never Smokeless Tobacco: Never Tobacco Cessation:Counseling Given: No Alcohol Use Standard Drinks/Week Comments No 0 (1 standard drink = 0.6 oz pur e alcohol) Personal Safety Answer Date Recorded Have you ever been in or are you currently in a harmful physical or emotional relationship or is someone making you feel afraid or unsafe? Denies 03/20/2024 Comments Unknown Sex and Gender Information Value Date Recorded Sex Assigned at Not on file Legal Sex Female 3:23 AM DISTRICT WIRE CHIEF Gender Identity Not on file Sexual Orientation Not on file Obstetrics History Last Filed Vital Signs Vital Sign Reading Time Taken Comments Blood Pressure 128/56 07/06/2024 3:13 PM DISTRICT WIRE CHIEF Pulse 59 07/06/2024 3:13 PM DISTRICT WIRE CHIEF Temperature 36.5 C (97.7 F) 03/31/2024 3:21 PM CDT Respiratory Rate 16 03/31/2024 3:21 PM CDT Oxygen Saturation 98% 07/06/2024 3:13 PM DISTRICT WIRE CHIEF Inhaled Oxygen Concentration - - Weight 66.2 kg (146 lb) 07/06/2024 3:13 PM DISTRICT WIRE CHIEF Height 162.6 cm (5' 4 ) 07/06/2024 3:13 PM DISTRICT WIRE CHIEF Body Mass Index 25.06 07/06/2024 3:13 PM DISTRICT WIRE CHIEF Plan of Treatment Health Maintenance Due Date Last Done Comments Depression Screening 1938 Hepatitis B Screening 1958 Well Visit 65+ 2003 Covid-19 Vaccine (2023-2 5 season) 2024 03/29/2021, 07/25/2020, 06/27/2020 Influenza Vaccine (#1) 2024 3, 03/11/2021, 03/01/2020, Additional history exists Fall Risk Assessment 03/31/2025 03/31/2024 DTaP/Tdap/Td Vaccine (3 - Td or Tdap) 05/02/2030 05/02/2020, 11/08/2008, 03/04/1999 Zoster Vaccine Completed 06/21/2018, 01/29, 03/09/2008 Pneumococcal vaccine 65+ Completed 020, 10/29/2016, 05/12/2015, Additional history exists Medical Devices Implanted Type Area Dairy Tester Device Identifier Shelf Expiration Date Model / Serial / Lot Depuy Spine Screw Spinal Posterior Cervical Polyaxial Threaded Cannulated Symphony 4.0x30mm [id number] - [id number] Implanted:Qty : 1 on 03/20/2024 by Maryjo Morfin MD at [facility] Spine Cervical Depuy Spine [id number] / / Depuy Synthes Spine Substitute Bone Graft Fibergraft Large Bioactive Glass Putty [id number] - [id number] Implanted:Qty : 1 on 03/21/2024 by Maryjo Morfin MD at [facility] N/A: Spine Cervical Depuy Synthes Spine [id number] / / Allosource Crushed Chip Frozen Graft 30ml Bone Cancellous [id number] - [id number] Implanted:Qty : 1 on 03/21/2024 by Maryjo Morfin MD at [facility] N/A: Spine Cervical Allosource 08/03/2028 [id number] / / [id number] Depuy Synthes Spine Screw Spinal Set Posterior Cervical Solid Symphony Titanium [id number] - [id number] Implanted:Qty : 8 on 03/21/2024 by Maryjo Morfin MD at [facility] N/A: Spine Cervical Depuy Synthes Spine [id number] / / Depuy Synthes Spine Screw Spinal Posterior Cervical Polyaxial Solid Symphony 3.5x14mm [id number] - [id number] Implanted:Qty : 4 on 03/21/2024 by Maryjo Morfin MD at [facility] N/A: Spine Cervical Depuy Synthes Spine [id number] / / Depuy Spine Screw Spinal Posterior Cervical Polyaxial Threaded Cannulated Symphony 4x26mm [id number] - [id number] Implanted:Qty : 2 on 03/21/2024 by Maryjo Morfin MD at [facility] N/A: Spine Cervical Depuy Spine [id number] / / Depuy Synthes Spine Wesly Spinal Pre Lordotic Pre Cut Symphony 3.5x60mm Titanium [id number] - [id number] Implanted:Qty : 2 on 03/21/2024 by Maryjo Morfin MD at [facility] N/A: Spine Cervical Depuy Synthes Spine [id number] / / Depuy Synthes Spine Screw Spinal Posterior Cervical Polyaxial Solid Symphony 3.5x14mm [id number] - [id number] Implanted:Qty : 2 on 03/23/2024 by Maryjo Morfin MD at [facility] N/A: Spine Cervical Depuy Synthes Spine [id number] / / Depuy Synthes Spine Screw Spinal Set Posterior Cervical Solid Symphony Titanium [id number] - [id number] Implanted:Qty : 9 on 03/23/2024 by Maryjo Morfin MD at [facility] N/A: Spine Cervical Depuy Synthes Spine [id number] / / Depuy Synthes Spine Wesly Spinal Posterior Cervical Pre Cut Symphony 3.5x70mm Titanium [id number] - [id number] Implanted:Qty : 1 on 03/23/2024 by Maryjo Morfin MD at [facility] N/A: Spine Cervical Depuy Synthes Spine [id number] / / Depuy Synthes Spine 3.5mm 75mm Lordosis Wesly Spinal Titanium [id number] - [id number] Implanted:Qty : 1 on 03/23/2024 by Maryjo Morfin MD at [facility] Depuy Synthes Spine [id number] / / Depuy Synthes Spine Substitute Bone Graft Fibergraft Large Bioactive Glass Putty [id number] - [id number] Implanted:Qty : 1 on 03/23/2024 by Maryjo Morfin MD at [facility] N/A: Spine Cervical Depuy Synthes Spine 12/30/2026 [id number] / / [id number] Allosource Crushed Fresh Frozen Cancellous 1-4mm Graft 15ml Bone [id number] - [id number] Implanted:Qty : 1 on 03/23/2024 by Maryjo Morfin MD at [facility] N/A: Spine Cervical Allosource 08/31/2028 [id number] / / [id number] Procedures Procedure Name Priority Date/Time Associated Diagnosis Comments ECG 12-LEAD Routine 07/06/2024 4:12 PM DISTRICT WIRE CHIEF XR SPINE CERVICAL 2 OR 3 VIEWS Schedule Routine, Read Routine (OP Routine) 06/15/2024 1:46 PM DISTRICT WIRE CHIEF Closed displaced fracture of sixth cervical vertebra with routine healing, unspecified fracture morphology, subsequent encounter XR SPINE CERVICAL 2 OR 3 VIEWS Schedule Routine, Read Routine (OP Routine) 05/04/2024 2:14 PM DISTRICT WIRE CHIEF Closed displaced fracture of sixth cervical vertebra with routine healing, unspecified fracture morphology, subsequent encounter from Last 3 Months Results * ECG 12 lead (07/06/2024 4:12 PM DISTRICT WIRE CHIEF) Mirtha Vila NP ECG ORDERABLES Final Res ult * XR Spine Cervical 2 or 3 Views (06/15/2024 1:46 PM DISTRICT WIRE CHIEF) Anatomical Region Laterality Modality Spine N/A Computed Radiogr aphy 06/15/2024 2:25 PM DISTRICT WIRE CHIEF Impressions 06/15/2024 2:25 PM DISTRICT WIRE CHIEF Unchanged posterior instrumented fusion C5-T2. Electronically signed by: Morro Fuentes M.D. Narrative 06/15/2024 2:25 PM DISTRICT WIRE CHIEF EXAMINATION: XR SPINE CERVICAL 2 OR 3 VIEWS HISTORY: Neck pain FINDINGS: 3 views of the cervical spine were performed with comparison made to 05/04/2024. Aortic and carotid atherosclerosis is noted. There is posterior instrumented fusion C5-T2. There is mild degenerative disc disease above the fused segments. Instrumentation appears intact. Prevertebral soft tissues appear normal. Procedure Note Morro Fuentes MD PhD - 06/15/2024 EXAMINATION: XR SPINE CERVICAL 2 OR 3 VIEWS HISTORY: Neck pain FINDINGS: 3 views of the cervical spine were performed with comparison made to 05/04/2024. Aortic and carotid atherosclerosis is noted. There is posterior instrumented fusion C5-T2. There is mild degenerative disc disease above the fused segments. Instrumentation appears intact. Prevertebral soft tissues appear normal. IMPRESSION: Unchanged posterior instrumented fusion C5-T2. Electronically signed by: Morro Fuentes M.D. Maryjo Morfin MD IMG XR PROCEDURES Final Resul t * XR Spine Cervical 2 or 3 Views (05/04/2024 2:14 PM DISTRICT WIRE CHIEF) Anatomical Region Laterality Modality Spine N/A Computed Radiogr aphy 05/04/2024 2:48 PM DISTRICT WIRE CHIEF Impressions 05/04/2024 4:25 PM DISTRICT WIRE CHIEF Unchanged posterior instrumented spinal fusion from C5 to T2. Dictated by: Joey Brown MD The radiology attending physician has personally reviewed this study, and had reviewed and/or edited this written report and agrees with it. Electronically signed by: Vikas Padilla M.D. Narrative 05/04/2024 4:25 PM DISTRICT WIRE CHIEF EXAMINATION: XR SPINE CERVICAL 2 OR 3 VIEWS HISTORY: Cervical spinal fusion COMPARISON: Radiographs from 03/24/2024 FINDINGS: 3 radiographs of the cervical spine are submitted for interpretation. Unchanged posterior instrumented spinal fusion of C5-T2. Hardware is intact. Exaggeration of the lumbar lordosis as well as moderate degenerative disc disease and facet arthropathy at the nonfused levels. Carotid artery calcifications. Prevertebral soft tissues are normal. Procedure Note Vikas Garay MD - 05/04/2024 EXAMINATION: XR SPINE CERVICAL 2 OR 3 VIEWS HISTORY: Cervical spinal fusion COMPARISON: Radiographs from 03/24/2024 FINDINGS: 3 radiographs of the cervical spine are submitted for interpretation. Unchanged posterior instrumented spinal fusion of C5-T2. Hardware is intact. Exaggeration of the lumbar lordosis as well as moderate degenerative disc disease and facet arthropathy at the nonfused levels. Carotid artery calcifications. Prevertebral soft tissues are normal. IMPRESSION: Unchanged posterior instrumented spinal fusion from C5 to T2. Dictated by: Joey Brown MD The radiology attending physician has personally reviewed this study, and had reviewed and/or edited this written report and agrees with it. Electronically signed by: Vikas Padilla M.D. Maryjo Morfin MD IMG XR PROCEDURES Final Resul t from Last 3 Months Insurance [employer] [place] [address] MEDICARE [employer] Member Subscriber Plan / Payer (Ef fective 2021-Present) Name:Rosaura Reyes Relation to Subscriber:Self Name:Rosaura Reyes Payer ID:[id number] (NAIC) Type:[facility] MEDICARE Address: [place] [id number] [place] [id number] [place] [address] MEDICARE SOLUTIONS FOR LIFE Advance Directives For more information, please contact: [phone] * Full Code (Latest Code Status on File) Date Activated Date Inactivated Comments 03/23/2024 2:33 PM 03/31/2024 10:05 PM * Full Code Date Activated Date Inactivated Comments 03/21/2024 11:35 AM 03/23/2024 2:33 PM Care Teams 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
--- OUTSIDE RECORDS SUMMARY | 2024-07-18 14:53 | XMS_ITS | Referral Summary ---
Author Organization [place] [address] Address [address] [facility] [address] [place] [address] Care Team Providers Care Cushion Installer Name Role Phone Mirtha Vila NP Unavailable Carlos Colon MD Unavailable Alin Hale DO Unavailable [phone] Alin Hale DO Primary Care Provider Encounters Date Type Department Care Team Description 07/06/2024 3:00 PM VICE PRESIDENT SAFETY Office Visit [facility] Medical [facility] Cardiology [address] [place] [address] [address] [place] [address] Mirtha Vila NP Acute deep vein thrombosis (DVT) of left peroneal vein (HCC) (Primary Dx); Injury of left posterior tibial vein, initial encounter; Chronic anticoagulation 07/05/2024 Telephone [facility] Cardiology [address] [place] [address] [address] [place] [address] Everardo Kilpatrick MD 06/15/2024 Orders Only [facility] Neurosurgery [address] [facility] Medical Office Building [address] [place] [address] Maryjo Morfin MD Closed displaced fracture of sixth cervical vertebra with routine healing, unspecified fracture morphology, subsequent encounter (Primary Dx) 06/15/2024 1:30 PM VICE PRESIDENT SAFETY - 06/15/2024 11:59 PM VICE PRESIDENT SAFETY Hospital Encounter [id number] [address] [facility] [address] [place] [address] Closed displaced fracture of sixth cervical vertebra with routine healing, unspecified fracture morphology, subsequent encounter Discharge Disposition: Discharge to home or self care 06/15/2024 2:00 PM VICE PRESIDENT SAFETY Office Visit [facility] Neurosurgery [address] [place] [address] [facility] [address] [place] [address] Maryjo Morfin MD Unilateral dislocation of C6-C7 facet joint, subsequent encounter (Primary Dx) 06/09/2024 Orders Only [facility] Neurosurgery [address] [place] [address] [facility] [address] [place] [address] Maryjo Morfin MD Closed displaced fracture of sixth cervical vertebra with routine healing, unspecified fracture morphology, subsequent encounter (Primary Dx) 05/05/2024 Orders Only [facility] Neurosurgery [address] [place] [address] [address] [place] [address] Maryjo Morfin MD Closed displaced fracture of sixth cervical vertebra with routine healing, unspecified fracture morphology, subsequent encounter (Primary Dx) 05/05/2024 Telephone [facility] Neurosurgery [facility] 6th [place] [address] Maryjo Morfin MD 05/04/2024 Orders Only [facility] Neurosurgery [address] [place] [address] [address] [place] [address] Maryjo Morfin MD Cervical vertebral fusion (Primary Dx) 05/04/2024 1:15 PM VICE PRESIDENT SAFETY - 05/04/2024 11:59 PM VICE PRESIDENT SAFETY Hospital Encounter [id number] [address] [place] [address] [address] [place] [address] Closed displaced fracture of sixth cervical vertebra with routine healing, unspecified fracture morphology, subsequent encounter Discharge Disposition: Discharge to home or self care 05/04/2024 2:00 PM VICE PRESIDENT SAFETY Office Visit [facility] Neurosurgery [address] [place] [address] [facility] [address] [place] [address] Maryjo Morfin MD Closed displaced fracture of sixth cervical vertebra with routine healing, unspecified fracture morphology, subsequent encounter (Primary Dx) 04/18/2024 Orders Only [facility] Neurosurgery [address] [facility] Medical Office Building [address] [place] [address] Dallas Wyatt MD Closed displaced fracture of sixth cervical vertebra with routine healing, unspecified fracture morphology, subsequent encounter (Primary Dx) from Last 3 Months Allergies Active Allergy Reactions Criticality Noted Date [...] SW/CM updated. Discharge pending insurance authorization - 03/31: discharge to SNF Acute blood loss anemia [...] foraminotomy, SPINAL CORD MONITORING (Bilateral) (03/21) - [place] J at all times - cervical spine xr (03/21): posterior instrumented C6-T2 fusion in expected position, moderate multilevel thoracic degenerative disc disease with mild hyperkyphosis and diffuse osteopenia. - PT/OT - 03/23: s/p Extension of fusion to C5 and Left C6/7 foraminotomy with removal of bone chip - vanc/ancef while drains in - Activity Restrictions: Liv AAT - Imaging required: Cervical Spine Xrays [...] buttock 03/25/2023 Nonrheumatic mitral valve regurgitation 01/26/20 23 Nonrheumatic aortic valve insufficiency 01/26/20 23 At risk for amiodarone toxicity with terminal worker u se 01/25/2023 Subclinical hyperthyroidism 01/07/2023 Assessment [...] 02/01/2024 Dyslipidemia 02/27/2014 05/05/2021 Overview (09/03/2016): Dyslipidemia Immunizations Immunization Administration Dates Next Due Influenza, [...] 11/08/2008 ZOSTER LIVE 03/09/2008 ZOSTER Recombinant 06/21/2018,02/08/2018 Social History Tobacco Use Types Packs/Day Years [...] on file Legal Sex Female 3:23 AM VICE PRESIDENT SAFETY Gender Identity Not on file Sexual Orientation Not on file Last Filed Vital Signs Vital Sign Reading Time Taken Comments Blood Pressure 128/56 07/06/2024 3:13 PM VICE PRESIDENT SAFETY Pulse 59 07/06/2024 3:13 PM VICE PRESIDENT SAFETY Temperature 36.5 C (97.7 F) 03/31/2024 3:21 PM CDT Respiratory Rate 16 03/31/2024 3:21 PM CDT Oxygen Saturation 98% 07/06/2024 3:13 PM VICE PRESIDENT SAFETY Inhaled Oxygen Concentration - - Weight 66.2 kg (146 lb) 07/06/2024 3:13 PM VICE PRESIDENT SAFETY Height 162.6 cm (5' 4 ) 07/06/2024 3:13 PM VICE PRESIDENT SAFETY Body Mass Index 25.06 07/06/2024 3:13 PM VICE PRESIDENT SAFETY Plan of Treatment Not on file Medical Devices Implanted Type Area Pension Adviser Device Identifier Shelf Expiration Date Model / Serial / Lot Depuy Spine Screw Spinal Posterior Cervical Polyaxial Threaded Cannulated Symphony 4.0x30mm [id number] - [id number] Implanted:Qty : 1 on 03/20/2024 by Maryjo Morfin MD at [facility] Spine Cervical Depuy Spine [id number] / / Depuy Synthes Spine Substitute Bone Graft Fibergraft Large Bioactive Glass Putty [id number] - [id number] Implanted:Qty : 1 on 03/21/2024 by Maryjo Morfin MD at [facility] N/A: Spine Cervical Depuy Synthes Spine [id number] / / Allosource Crushed Chip Frozen Graft 30ml Bone Cancellous [id number] - [id number] Implanted:Qty : 1 on 03/21/2024 by Maryjo Morfin MD at [facility] N/A: Spine Cervical Allosource 08/03/2028 [id number] / / [id number] Depuy Synthes Spine Screw Spinal Set Posterior Cervical Solid Symphony Titanium [id number] - [id number] Implanted:Qty : 8 on 03/21/2024 by Maryjo Morfin MD at [facility] N/A: Spine Cervical Depuy Synthes Spine [id number] / / Depuy Synthes Spine Screw Spinal Posterior Cervical Polyaxial Solid Symphony 3.5x14mm [id number] - [id number] Implanted:Qty : 4 on 03/21/2024 by Maryjo Morfin MD at [facility] N/A: Spine Cervical Depuy Synthes Spine [id number] / / Depuy Spine Screw Spinal Posterior Cervical Polyaxial Threaded Cannulated Symphony 4x26mm [id number] - [id number] Implanted:Qty : 2 on 03/21/2024 by Maryjo Morfin MD at [facility] N/A: Spine Cervical Depuy Spine [id number] / / Depuy Synthes Spine Wesly Spinal Pre Lordotic Pre Cut Symphony 3.5x60mm Titanium [id number] - [id number] Implanted:Qty : 2 on 03/21/2024 by Maryjo Morfin MD at [facility] N/A: Spine Cervical Depuy Synthes Spine [id number] / / Depuy Synthes Spine Screw Spinal Posterior Cervical Polyaxial Solid Symphony 3.5x14mm [id number] - [id number] Implanted:Qty : 2 on 03/23/2024 by Maryjo Morfin MD at [facility] N/A: Spine Cervical Depuy Synthes Spine [id number] / / Depuy Synthes Spine Screw Spinal Set Posterior Cervical Solid Symphony Titanium [id number] - [id number] Implanted:Qty : 9 on 03/23/2024 by Maryjo Morfin MD at [facility] N/A: Spine Cervical Depuy Synthes Spine [id number] / / Depuy Synthes Spine Wesly Spinal Posterior Cervical Pre Cut Symphony 3.5x70mm Titanium [id number] - [id number] Implanted:Qty : 1 on 03/23/2024 by Maryjo Morfin MD at [facility] N/A: Spine Cervical Depuy Synthes Spine [id number] / / Depuy Synthes Spine 3.5mm 75mm Lordosis Wesly Spinal Titanium [id number] - [id number] Implanted:Qty : 1 on 03/23/2024 by Maryjo Morfin MD at [facility] Depuy Synthes Spine [id number] / / Depuy Synthes Spine Substitute Bone Graft Fibergraft Large Bioactive Glass Putty [id number] - [id number] Implanted:Qty : 1 on 03/23/2024 by Maryjo Morfin MD at [facility] N/A: Spine Cervical Depuy Synthes Spine 12/30/2026 [id number] / / [id number] Allosource Crushed Fresh Frozen Cancellous 1-4mm Graft 15ml Bone [id number] - [id number] Implanted:Qty : 1 on 03/23/2024 by Maryjo Morfin MD at [facility] N/A: Spine Cervical Allosource 08/31/2028 [id number] / / [id number] Procedures Procedure Name Priority Date/Time Associated Diagnosis Comments ECG 12-LEAD Routine 07/06/2024 4:12 PM VICE PRESIDENT SAFETY XR SPINE CERVICAL 2 OR 3 VIEWS Schedule Routine, Read Routine (OP Routine) 06/15/2024 1:46 PM VICE PRESIDENT SAFETY Closed displaced fracture of sixth cervical vertebra with routine healing, unspecified fracture morphology, subsequent encounter XR SPINE CERVICAL 2 OR 3 VIEWS Schedule Routine, Read Routine (OP Routine) 05/04/2024 2:14 PM VICE PRESIDENT SAFETY Closed displaced fracture of sixth cervical vertebra with routine healing, unspecified fracture morphology, subsequent encounter from Last 3 Months Results * ECG 12 lead (07/06/2024 4:12 PM VICE PRESIDENT SAFETY) Mirtha Vila BRIM STRETCHER ECG ORDERABLES Final Res ult * XR Spine Cervical 2 or 3 Views (06/15/2024 1:46 PM VICE PRESIDENT SAFETY) Anatomical Region Laterality Modality Spine N/A Computed Radiogr aphy 06/15/2024 2:25 PM VICE PRESIDENT SAFETY Impressions 06/15/2024 2:25 PM VICE PRESIDENT SAFETY Unchanged posterior instrumented fusion C5-T2. Electronically signed by: Morro Fuentes M.D. Narrative 06/15/2024 2:25 PM VICE PRESIDENT SAFETY EXAMINATION: XR SPINE CERVICAL 2 OR 3 [...] posterior instrumented fusion C5-T2. Electronically signed by: Mroro Fuentes M.D. Maryjo Morfin MD IMG XR PROCEDURES Final Resul t * XR Spine Cervical 2 or 3 Views (05/04/2024 2:14 PM VICE PRESIDENT SAFETY) Anatomical Region Laterality Modality Spine N/A Computed Radiogr aphy 05/04/2024 2:48 PM VICE PRESIDENT SAFETY Impressions 05/04/2024 4:25 PM VICE PRESIDENT SAFETY Unchanged posterior instrumented spinal fusion from C5 to T2. Dictated by: Joey Brown MD The radiology attending physician has personally reviewed this study, and had reviewed and/or edited this written report and agrees with it. Electronically signed by: Vikas Padilla M.D. Narrative 05/04/2024 4:25 PM VICE PRESIDENT SAFETY EXAMINATION: XR SPINE CERVICAL 2 OR 3 [...] Resul t from Last 3 Months Insurance [employer] [place] [address] MEDICARE SOLUTIONS [employer] SOLUTIONS MEDICARE SOLUTIONS FOR LIFE Advance Directives For more information, please contact: [phone] * Full Code (Latest Code Status on File) Date Activated Date Inactivated Comments 03/23/2024 2:33 PM 03/31/2024 10:05 PM * Full Code Date Activated Date Inactivated Comments 03/21/2024 11:35 AM 03/23/2024 2:33 PM Care Teams Cushion Installer Relationship Specialty Start Date End Date Alin Hale DO [address] [place] [address] PCP - General Family Medicine 05/04/24 Mirtha Vila NP [address] [address] Nurse Practitioner Cardiovascular Disease 12/15/22 Carlos Colon MD [address] [address] Consulting Physician Cardiology 12/15/22 Alin Hale DO [address] [place] [address] Family Medicine 05/04/24
--- NOTE | 2024-07-18 14:57 | ED_ITS ---
HPI - Fall General Chief Complaint: Fall Stated Complaint: glf, struck head Time Seen by Provider: 07/18/24 14:33 Source: patient and EMS Mode of arrival: EMS Limitations: no limitations History of Present Illness HPI Narrative: This is a 84-year-old female that presents to the emergency department after a fall today with head injury. Reports she has been struggling with sciatic nerve pain. Due to this her left leg had given out on her. She fell backwards and hit her head. She did not lose consciousness. She does take anticoagulation which prompted her to be seen. Denies vision changes, vomiting, focal numbness or weakness. No other focal injuries or areas of pain. Related Data Home Medications ?Medication ?Instructions ?Recorded ?Confirmed ?Last Taken ?Type prednisolone acetate 1 % eye See Rx Instructions .Route .COMPLEX 12/25/20 07/03/24 Unknown History drops,suspension (Pred Forte) amlodipine 10 mg tablet 10 mg PO QPM 03/22/22 07/03/24 Unknown History acetaminophen 500 mg tablet 650 mg PO .prn PRN 04/27/22 07/03/24 Unknown History furosemide 40 mg tablet 20 mg PO DAILY PRN 04/27/22 07/03/24 Unknown History multivitamin 1 tablet PO DAILY 04/27/22 07/03/24 Unknown History vitamin B comp and C no.3 15 mg-10 1 cap PO DAILY 04/27/22 07/03/24 Unknown History mg-50 mg-5 mg-300 mg capsule (B Complex Plus Vitamin C) potassium chloride 20 mEq oral 20 meq PO DAILY PRN 08/28/22 07/03/24 Unknown History packet apixaban 5 mg tablet (Eliquis) 5 mg PO BID 05/03/24 07/03/24 Unknown History simvastatin 10 mg tablet (Zocor) 10 mg PO QHS 05/03/24 07/03/24 Unknown History esomeprazole magnesium 20 mg 20 mg PO DAILY PRN 07/03/24 07/03/24 Unknown History capsule,delayed release (Nexium) pregabalin 50 mg capsule (Lyrica) 50 mg PO BID 07/03/24 07/03/24 Unknown History Allergies Allergy/AdvReac Type Severity Reaction Status Date / Time nitrofurantoin Allergy Severe GENERALIZED Verified 07/18/24 14:24 ENTIRE BODY TINGLING, PAIN,UNABLE TO WALK Penicillins Allergy Unknown rash Verified 07/18/24 14:24 Review of Systems Review of Systems: CONSTITUTIONAL: Denies fever GASTROINTESTINAL: Denies vomiting NEUROLOGIC: Denies headache, numbness, or weakness. All systems reviewed & are unremarkable except as noted in HPI and below PMFSH Past Medical History Medical History (Updated 07/18/24 @ 16:43 by Nicolette Pope PA-C) History of cervical fracture DVT (deep venous thrombosis) Vaginal irritation Encounter for screening for malignant neoplasm of cervix BMI 30.0-30.9,adult Abnormal mammogram BMI 25.0-25.9,adult Valvular heart disease Acute diastolic CHF (congestive heart failure) Obesity 02/06/22 BMI 29 Ulcerative colitis s/p ileostomy Aortic stenosis Obstructive sleep apnea compliant with cpap Arthritis pseudogout History of gastroesophageal reflux (GERD) Hypertension Hypercholesteremia Surgical History Surgical History H/O ileostomy History of cholecystectomy History of cornea transplant H/O hemorrhoidectomy History of left knee replacement Family History Family History Father Family history of respiratory disorder, Onset Age: 63 Liver disease Alcoholism Sibling Diabetes mellitus COPD (chronic obstructive pulmonary disease) Hypertension Sibling Crohn's disease Diabetes mellitus Grandparent Hypertension Heart disease Thyroid disorder Other Family history of malignant neoplasm of breast Family history of malignant neoplasm of cervix Social History Social History (Updated 07/03/24 @ 14:35 by Britt Cuenca [facility]) Smoking status: Never smoker Second hand tobacco smoke exposure: No Alcohol intake: never Substance use: never Substance use type: does not use Do You Feel Safe in your Home?: Yes Lack of Transportation: No Lack of Food: Never True Current Housing: I Have Housing Concerned About Future Housing: No Difficulty Paying Gas/Electric Bills: No Difficulty Paying for Meds: No Currently Unemployed: No Education: Master's Degree or Higher Difficulty w/ Childcare or Family Care: No Living arrangements: with family Additional living arrangements comments: lives with spouse Occupation/Education: retired 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 HEAD: Normocephalic. Contusion to the posterior scalp EYES: PERRLA and EOMI. ENT: Nares clear, no rhinorrhea or epistaxis. Mucous membranes moist. Oropharynx without tonsillar hypertrophy exudate or other lesions. Bilateral TMs pearly avitia non-bulging NECK: Supple. No adenopathy or masses. C collar in place CHEST: Clear to auscultation. No respiratory distress. No wheezes rales or rhonchi HEART: Regular rate and rhythm. No murmur heard. Normal peripheral pulses. EXTREMITIES: Normal range of motion. No edema or obvious deformity. Strength equal in bilateral upper and lower extremities (5/5) SKIN: Warm, dry, no rash. NEURO: No focal deficits. Alert and oriented x3. CN II-XII grossly intact PSYCH: Normal mood and affect Course Course Emergency Course: patient updated on her workup. Resting comfortably. Reports her will come to pick her up Vital Signs Vital signs: Vital Signs Temperature 97.8 F 07/18/24 14:18 Pulse Rate 78 07/18/24 14:18 Respiratory Rate 16 07/18/24 14:18 Blood Pressure 122/61 07/18/24 14:18 Pulse Oximetry 98 07/18/24 14:18 Oxygen Delivery Room Air 07/18/24 14:18 Temperature 97.7 F 07/18/24 15:28 Pulse Rate 69 07/18/24 15:28 Respiratory Rate 14 07/18/24 15:28 Blood Pressure 117/59 L 07/18/24 15:28 Pulse Oximetry 98 07/18/24 15:28 Oxygen Delivery Room Air 07/18/24 14:18 Procedures Laceration Laceration 1: Date: 07/18/24 Time: 16:44 Site: scalp Size (cm): 0.5 Description: irregular Depth: simple, single layer Pre-repair: irrigated ====== Skin Level ====== Skin layer closed with: dermabond Size (cm): other (hair suture) Number of sutures: 1 ====== Subcutaneous Layer ====== ====== Muscle Layer ====== ====== Tendon Layer ====== MDM - Fall MDM Narrative Medical decision making narrative: Patient presents to the emergency department after a fall today with head injury. She is neurologically intact. CT brain and cervical spine without acute findings. Patient had a very small, superficial laceration. This was repaired with hair sutures and skin glue. She was updated on tetanus vaccinat ion. patient updated on her workup. Resting comfortably. Reports her will come to pick her up. She was given warnings to return to the ER Differential Diagnosis Differential diagnosis: Likely other (head injury, concussion, subdural hematoma, cervical spine fracture) Imaging Data Radiologist's impression: ITS Impressions Head CT 07/18/24 14:54 IMPRESSION: 1. Normal aging brain with no fracture or acute intracranial process. Cervical Spine CT 07/18/24 14:57 IMPRESSION: 1. Mild cervical spondylosis with instrumented C5-T2 posterior spinal fusion spanning a chronic mild T7 superior endplate compression fracture. No acute osseous abnormality. Critical Care Time Critical Care Time Critical Care Time: No Discharge Plan Discharge Clinical Impression: Laceration Head injury Qualifiers: Encounter type: initial encounter Qualified Code(s): S09.90XA - Unspecified injury of head, initial encounter Patient Disposition: Home, Self-Care Condition: Stable Instructions: Laceration (ED), Head Injury (ED), Skin Adhesive Care (ED) Additional Instructions: Return to the emergency department if you experience fever, chest pain, shortness of breath, vomiting, weakness, numbness, or any other symptoms that are concerning to you. Rest. Remain well hydrated. You may let the water run over the wound in the shower. Avoid harsh scrubbing to the area. Over the counter pain medication as needed Follow up with your primary care doctor Patient Language: Canadian Prescriptions: No Action pregabalin [Lyrica] 50 mg capsule 50 mg PO BID esomeprazole magnesium [Nexium] 20 mg capsule,delayed release(DR/EC) 20 mg PO DAILY PRN prednisolone acetate [Pred Forte] 1 % drops,suspension See Rx Instructions .ROUTE .COMPLEX Rx Instructions: into right eye ;1 drp into eye EVERY OTHER HOUR WHILE AWAKE acetaminophen 500 mg tablet 650 mg PO .prn PRN furosemide 40 mg tablet 20 mg PO DAILY PRN B Complex Plus Vitamin C 11-94-14-5-300 mg capsule 1 cap PO DAILY Rx Instructions: give with food (meal/snack) multivitamin Tablet 1 tablet PO DAILY potassium chloride 20 mEq packet 20 meq PO DAILY PRN Rx Instructions: takes only when taking furosemide simvastatin [Zocor] 10 mg tablet 10 mg PO QHS amlodipine 10 mg tablet 10 mg PO QPM Jardiance 10 mg Tablet 10 mg PO DAILY Qty: 30 1RF spironolactone 25 mg tablet 12.5 mg PO DAILY Qty: 30 0RF amiodarone 200 mg tablet 200 mg PO DAILY Qty: 30 0RF Eliquis 5 mg tablet 5 mg PO BID Follow-up/Referrals: UNKNOWN,DOCTOR [Primary Care Provider] -
[2024-07-18] MEDS: TETANUS,DIPHTHERIA,AC PERTUSSIS ADULT (0.5 ML) BOOSTRIX IM (15:23)
[2024-07-18 15:28] VITALS: BP 117/59; PULSE 69; RESP 14; TEMP 36.5; O2SAT 98
[2024-07-18 17:21] VITALS: BP 110/56; PULSE 70; RESP 16; TEMP 36.6; O2SAT 97
== END 2024-07-18 17:23 | disposition home or self-care (01) ==
PROVIDERS: Emergency Provider Physician Assistant
DX: S01.01XA Laceration without foreign body of scalp, initial encounter (principal); M47.812 Spondylosis without myelopathy or radiculopathy, cervical region; Z86.718 Personal history of other venous thrombosis and embolism; I11.0 Hypertensive heart disease with heart failure; I50.9 Heart failure, unspecified; E78.5 Hyperlipidemia, unspecified; M19.90 Unspecified osteoarthritis, unspecified site; Z79.01 Long term (current) use of anticoagulants; W19.XXXA Unspecified fall, initial encounter; Z23 Encounter for immunization
CPT/HCPCS: 12001; 70450; 72125; 90471; 90715; 99284; L0140

== ENCOUNTER 2024-07-20 13:38 | Outpatient (RCR) | payer MEDICARE, OTHER, SELFPAY ==
--- NOTE | 2024-07-20 15:13 | OPREHPOC ---
Outpatient Therapy Plan of Care This is a Multidisciplinary Plan of Care that may contain components documented by all disciplines (PT, OT, and ST.) PT Problem 1 PT Problem #1 Knowledge Deficit PT Goal 1 Goal / Goal Update *indep with HEP Target Visit 10 PT Problem 2 PT Problem #2 Impaired Strength PT Goal 1 Goal / Goal Update *increase strength of R and L LE to 4/5, to improve transfer and mobility skills Target Visit 10 PT Problem 3 PT Problem #3 Impaired Functional Mobility PT Goal 1 Goal / Goal Update * transfer sit/stand from 18 seat with 1 UE use x 5 reps Target Visit 10 PT Goal 2 Goal / Goal Update * pt ambulate with rollator, 2 minute walking test distance of 375', to improve community ambulation Target Visit 10 PT Problem 4 PT Problem #4 Impaired Functional Mobility PT Goal 1 Goal / Goal Update * pt report no falls Target Visit 10
--- NOTE | 2024-07-20 15:13 | PTOPEVAL1 ---
Assessment and note entered by Angeline St, PT Evaluation Information Assessment Status Evaluation ICD-10 Condition Codes (PT) Repeated falls R29.6,Difficulty Walking R26.2, Abnormalities of gait and mobility R26.9,Weakness R53.1 Onset Feb 2024 Subjective Information problems with walking and balance since neck fusion due to fall in February 2024; since neck surgery have been using the wheeled walker or cane PRN due to balance problems; since started having sciatica pain recently, use the walker all the time. have been having falls, even with using the walker when back pain hits; in the past 2 months- have had 5 falls, 3 due to back pain with L leg giving out; missed the last step on stairs, sat down and chair not behind her. also- have some head dizziness/head whirling since neck surgery, with first get up in the morning and with sitting and get up, change positions; clears in few seconds to about 1 minute. She holds still until it is gone. had therapy after her neck surgery for her neck and arms, but it has stopped; shoulders still weak and cannot use them very well. 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 She reports 5 falls in the past 2 months. Reports a decline in her mobility since February fall with cervical fracture and fusion. Since then, used a cane or rollator for walking and since falling more and back pain, use the rollator walker all the time. She is not going out into the community, [employer] or driving due to weakness and back pain. Also reports problems with neck pain, arm weakness dizziness and L back pain. Medical history includes L TKR, R knee OA, R rotator cuff surgery. With the evaluation: decreased AROM of both knee extension motions; sit/stand requires use of both UE's on chair arms; 5 reps sit/stand time of 35 seconds; 2 minute walking test distance with rollator of 300'; supine/sit transfer is labored with dizziness when sitting up; gross strength of R and L LE is 3+ to 4-/5. Skilled PT services are indicated to increase LE strength, transfer gait and balance skills, to improve mobility and safety, to decrease risk for falls. Education for HEP and safety with mobility. During sessions, monitor back and neck pain, dizziness. Plan of Care Interventions Gait Training,Neuro Re-education,Patient/Caregiver Education,Therapeutic Activities,Therapeutic Exercise PT Services Indicated Yes Treatment Frequency and 2x/wk for 10 visits Duration These treatments will address the objective and functional deficits as defined above. The patient will be advanced safely and appropriately in order for the patient to progress towards his/her prior level of function. Additional exercises will be introduced and as well as a comprehensive home exercise program upon discharge, if needed, ?to ensure carryover of functional gains achieved in the clinic. This treatment plan has been reviewed and agreement upon by the patient.
--- NOTE | 2024-07-28 11:51 | PCPTNOTE ---
Pt. called to cancel her PT treatment this date due to illness.
--- NOTE | 2024-08-18 12:38 | PTOPDC ---
Assessment and note entered by Angeline St, PT Assessment Status Discharge - Pt Not Present ICD-10 Condition Codes (PT) Repeated falls R29.6,Difficulty Walking R26.2, Abnormalities of gait and mobility R26.9,Weakness R53.1 Onset Feb 2024 Subjective Information pt called to inform us that pt has . Assessment PT Clinical Summary Discharge PT. Plan of Care PT Services Indicated No
== END 2024-08-18 14:29 | disposition home or self-care (01) ==
LOC: ANHPT 13:38
PROVIDERS: Visit Provider Family Medicine
DX: R53.1 Weakness (principal); R53.81 Other malaise
CPT/HCPCS: 97110; 97162; 97530